=== PATIENT | male | born 1935 | race Caucasian/White ===

== ENCOUNTER 2019-11-22 11:53 | Outpatient (CLI) | payer OTHER, SELFPAY ==
[2019-11-22 12:44] LABS: Basophils # 0.1 10^3/uL (0.0-0.1); Basophils % 1.7 %; Eosinophils # 0.3 10^3/uL (0.0-0.8); Eosinophils % 8.4 %; Hematocrit 30.8 % (42.0-52.0); Hemoglobin 9.6 g/dL (11.7-16.6); Lymphocytes # 0.7 10^3/uL (0.8-4.8); Lymphocytes % 17.8 %; Mean Corpuscular HGB Conc 31.2 g/dL (30.0-36.0); Mean Corpuscular Hemoglobin 34.2 pg (28.0-34.0); Mean Corpuscular Volume 109.6 fL (80-94); Mean Platelet Volume 10.3 fL (7.4-10.4); Monocytes # 0.4 10^3/uL (0.2-0.9); Monocytes % 10.9 %; Neutrophils # 2.5 10^3/uL (1.8-7.7); Nucleated Red Blood Cells % 0 %; Platelet Count 204 10^3/cmm (130-400); Red Blood Count 2.81 10^6/uL (4.1-5.3); Red Cell Distribution Width 15.9 % (12.1-15.1); White Blood Count 4.1 10^3/uL (4.0-10.0)
[2019-11-22 12:57] LABS: Iron 39 ug/dL (59-158)
[2019-11-22 13:10] LABS: Percent Saturation 13.6 % (20-50); Total Iron Binding Capacity 285 mcg/dl; Unsaturated Iron Binding 246 ug/dL (112-347)
== END 2019-11-22 11:54 | disposition home or self-care (01) ==
LOC: ONCMED 12:00
PROVIDERS: Family Provider Emergency Medicine Emergency Medical Services; PCP Emergency Medicine Emergency Medical Services; Visit Provider Internal Medicine Hematology & Oncology
DX: D50.9 Iron deficiency anemia, unspecified (principal)
CPT/HCPCS: 83540; 83550; 85025; 86850; 86900; 96365

== ENCOUNTER 2019-11-29 10:00 | Outpatient (CLI) | payer OTHER, SELFPAY | END 2019-11-29 10:01 | disposition home or self-care (01) | PROVIDERS: Family Provider Emergency Medicine Emergency Medical Services; PCP Emergency Medicine Emergency Medical Services; Visit Provider Internal Medicine Hematology & Oncology | DX: D50.9 Iron deficiency anemia, unspecified (principal) | CPT/HCPCS: 96365 ==

== ENCOUNTER 2019-12-05 08:25 | Outpatient (CLI) | payer OTHER, SELFPAY ==
[2019-12-05 09:18] LABS: Add Urine Microscopic? NO
[2019-12-05 09:24] LABS: Basophils # 0.1 10^3/uL (0.0-0.1); Basophils % 1.2 %; Eosinophils # 0.3 10^3/uL (0.0-0.8); Eosinophils % 8.1 %; Hematocrit 30.5 % (42.0-52.0); Hemoglobin 9.5 g/dL (11.7-16.6); Lymphocytes # 0.6 10^3/uL (0.8-4.8); Lymphocytes % 13.1 %; Mean Corpuscular HGB Conc 31.1 g/dL (30.0-36.0); Mean Corpuscular Hemoglobin 35.3 pg (28.0-34.0); Mean Corpuscular Volume 113.4 fL (80-94); Mean Platelet Volume 10.6 fL (7.4-10.4); Monocytes # 0.4 10^3/uL (0.2-0.9); Neutrophils # 2.9 10^3/uL (1.8-7.7); Neutrophils % 68.4 %; Nucleated Red Blood Cells % 0 %; Platelet Count 181 10^3/cmm (130-400); Red Blood Count 2.69 10^6/uL (4.1-5.3); Red Cell Distribution Width 15.9 % (12.1-15.1); White Blood Count 4.2 10^3/uL (4.0-10.0)
[2019-12-05 09:28] LABS: Urine Appearance Clear (CLEAR); Urine Color Yellow (Yellow)
[2019-12-05 09:29] LABS: Bilirubin Urine Neg (NEGATIVE); Blood Urine Neg (Negative); Glucose Urine UA Norm (Normal); Ketones Urine Negative (Negative); Leukocyte Esterase Urine Negative (Negative); Nitrate Urine Negative (Negative); Protein Urine Neg (Negative); Urobilinogen Urine Norm (Negative)
[2019-12-05 09:42] LABS: Alanine Aminotransferase 16 U/L (0-41); Albumin Level 3.5 g/dL (3.5-5.2); Alkaline Phosphatase 80 IU/L (40-130); Anion Gap 13.8 (5-19); Aspartate Amino Transferase 43 U/L (0-40); Blood Urea Nitrogen 12 mg/dL (8-23); Calcium 8.7 mg/dL (8.5-10.5); Carbon Dioxide 22 mmol/L (22-29); Chloride 107 mmol/L (98-107); Globulin 3.4 g/dL (1.3-4.6); Glucose 109 mg/dL (65-115); Potassium 3.8 mmol/L (3.5-5.1); Sodium 139 mmol/L (136-145); Total Bilirubin 0.3 mg/dL (0.15-1.2); Total Protein 6.9 g/dL (6.6-8.7)
[2019-12-05] MEDS: sodium chloride 0.9% 250 ML 75 ML IV (11:05)
--- NOTE | 2019-12-05 11:45 | ONC FU_ITS ---
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 History of Present Illness: Mr Ivey is an 84 year-old man with hereditary hemorrhagic telangiectasia. He has associated iron deficiency anemia from chronic blood loss. He was initially seen here by Dr. Camacho on 01/20/2017. He had a history of chronic, iron dependent anemia, beginning 35 years earlier with the discovery of a bleeding ulcer. He had gone off of his iron 8 years earlier at the suggestion of his PCP, but he very quickly needed a blood transfusion 3 weeks later . He then continued on oral iron as well as oral B12 every day. He also reported a 40-year history of having frequent nosebleeds, almost daily. [facility] diagnosis of hereditary hemorrhagic telangiectasias. His recent hemoglobin with Dr. Orlando had been low at 9.1 g. His laboratory studies at that time included CBC showing hemoglobin 10.2 g, white blood cell count 5400 and platelet count 245,000. The red cell indices were normal. The uncorrected reticulocyte count was 3.6%. Haptoglobin was normal at 227 mg/dL with total bilirubin normal at 0.3 mg/dL and LDH normal at 153 U/L. His B12 and folate levels were both normal, as was the methylmalonic acid level. Ferritin was low at 19.2 ng/mL. He was given parenteral iron replacement with infusions of Injectafer on 02/02/2017 and on 02/09/2017. He tolerated it well. On his follow-up visit on 03/10/2017 his hemoglobin was basically unchanged at 10.3 g. Serum iron was still low at 33 mcg/dL with transferrin saturation 9.5%. Ferritin had come up to 84 ng/mL compared to 19 ng from milliliter on 01/20/2017. He was given additional infusions of Injectafer on 03/10/2017 and on 03/17/2017. His follow-up CBC on 04/14/2017 still showed mild anemia with hemoglobin 10.6 g. The serum iron studies still showed low transferrin saturation of 12%. The ferritin was up to 117 ng/mL. He failed to return for further follow-up. On 02/13/2018 he was admitted to the hospital after presenting to the emergency room with recurrent anemia, hemoglobin 7.4 g. He was transfused with 2 units of packed red blood cells. EGD showed multiple gastric AVMs which were treated with either clipping and/or cautery. He was then back in the emergency room on 02/23/2018 with hemoglobin 7.3 g, and he received another 2 units of packed red blood cells. I had seen him for a follow-up visit on 03/02/2018. His hemoglobin was still only 8.7 g with transferrin saturation low at 15.7% and ferritin low at 22 ng/mL. He was then given additional parenteral iron replacement with infusions of Injectafer on 03/13/2018 and 03/21/2018. Despite the iron infusions, as of his follow-up visit on 04/20/2018 his hemoglobin was back down to 7.5 g with transferrin saturation 15.9%. He was transfused 2 units of packed red blood cells and he was given additional infusions of Injectafer on 04/20/2018 and on 04/27/2018. As of 05/04/2018 his hemoglobin had further decline to 6.3 g with white blood cell count 4400 and platelet count 192,000. The red cell indices were macrocytic, MCV 113 and MCH 36. The uncorrected reticulocyte count was 14.4%. Haptoglobin was low at 27.1 mg/dL with LDH normal at 231 U/L. He was given a transfusion of 3 units of PRBC on 05/05/2018. He required further transfusions of 2 units of PRBC on 05/12/2018 and again on 05/23/2018. He underwent bone marrow aspiration/biopsy on 05/18/2018. The marrow was hypercellular, estimated at 80-90%. There was erythroid hyperplasia. There was limited megakaryocyte dyspoiesis and limited dyserythropoiesis. There was just scant storage iron. There was no evidence of an infiltrative process. Flow cytometry showed no aberrant myeloid or lymphoid populations, and a FISH panel for MDS was unrevealing. 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 The remainder showed normal chromosome complement. With those findings and with recurrent iron deficiency despite repeated infusions of parenteral iron, he was referred to [facility] for a second opinion evaluation. He was seen there in November 2018, and he subsequently began a trial of therapy with tranexamic acid. 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 Despite that, he required blood transfusions again on 01/18/2019, on 01/22/2019, on 02/05/2019, on 02/12/2019, and on 02/19/2019. 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 With that finding, we were able to get approval for a trial of therapy with a Avastin. He received his initial infusion of a Avastin at the 5 mg/kg dosage on 02/19/2019. He tolerated it well. As of 03/01/2019 his hemoglobin was adequate at 10.8 g. He continued with his second infusion of Avastin on 03/05/2019. The dosage was adjusted to a 3-week interval to allow for a planned vacation to [place]. His medical history is otherwise unremarkable. He reports no other medical illnesses. His most recent colonoscopy was in 2007. He is a nonsmoker. INTERIM HISTORY: Following his initial infusion of a Avastin, his hemoglobin had stabilized at 10 g. He continued with a second infusion on 03/05/2019, and thereafter he continued the a Avastin at 2-week intervals. During that time he experienced a gradual increase in his hemoglobin/hematocrit levels. As of 05/02/2019 he received his 5th infusion of a Avastin, and at that point his hemoglobin had increased to 12.4 g. He was seen for followup in July 2019. He had completed 9 infusions of a Avastin, the last 2 of which were administered at a 4-week interval. Hetolerated the treatment very well, and during that time he had not been aware of any active bleeding. He received cycle 10 on 08/22/2019. He feels pretty good generally. He says his energy is a little better. ECOG score is 1. He has good appetite. He has no fever or night sweats. He has some allergy related sinus symptoms, and he has a morning cough. He does not complain of shortness of breath or chest pain. He currently has no GI or complaints. He has some joint pain, mainly in the hands, and he also has some chronic back pain. He has just occasional headache. He has no focal neurologic symptoms. Remained off of the Avastin since August 22, 2019. He did have labs drawn in September which reported a hemoglobin of 12 which was starting to trend down from a hemoglobin of 13.5 on 09/17/2019. Repeat labs on November 22, 2019 reported hemoglobin of 9.6. His MCV was elevated his iron was found to be 39 TIBC was 285, iron saturation was 13.6 he did receive iron replacement with Injectafer for 2 doses starting on November 22, 2019 and completed on November 29, 2019. He tolerated those well. Mr. Ivey was advised to resume the Avastin as his hemoglobin had dropped. He he is here today for follow-up. He states overall he knows that his hemoglobin is low because he has been more draggy. He has not had any active bleeding that he is aware of. He states he does know when he is bleeding based on his stools and he is not seeing any abnormal stools at this point. He denies any other concerns. He denies any shortness of breath orthopnea. He has had no chest pain or palpitations. He denies any fever or chills within the last 72 hours. He states he is eating good. His energy is fair but somewhat down for him. He denies any rash or skin lesions. He has had no lower extremity edema. He states he is ready for the Avastin and is aware of side effects and just wants to pursue treatment. His ECOG is 1. Past Medical History: Mr. Ivey's medical history is unremarkable. Past Surgical History: Flu vaccine in 2019 - left deltoid Allergies: No Known Allergies. Medications: B-12 1 Tablet (of 500 mcg) Tablet, sublingual Sublingual daily Benadryl Allergy 1 Tablet (of 25 mg) Oral at bedtime PRN C 1000 1 Tablet (of 1000 mg) Oral daily Cetirizine HCl 1 (10 mg) Capsule Oral daily PRN Ferrous Sulfate 2 (325 (65 fe) mg) Tablet Oral daily Folic Acid 1 Tablet (of 1 mg) Oral daily Family History: Mr. Ivey's mother at age 94. Mr. Ivey's father is : anemia. Mr. Ivey has 3 brothers: 1 alive, 2 . Mr. Ivey's first brother's lung cancer. He has 1 sister who is : cancer unspecified. Social History: Mr. Ivey is and he is retired. Mr. Ivey has never smoked. He drinks occasionally. Mr. Ivey reports the following support systems: lives with spouse, significant other, family, or friends, lives in own house, supportive family/friends willing to assist with needs, and adequate transportation available for expected visits. His diet consists of regular meals. He indicates his activity level as: daily activities. Review Of Symptoms: Constitutional Denies fevers, chills, night sweats, excessive fatigue or weight loss. Allergic/Immunologic No reactions. Eyes Denies significant visual changes. No diplopia. No amaurosis. ENMT Denies changes in hearing, sore throat, mouth sores, difficulty or changes in swallowing ability, and/or sinus drainage. Endocrine No diabetes, thyroid disease or hormone replacement. Denies hot flashes or night sweats. Hematologic/Lymphatic Denies easy bruising or bleeding. The patient denies any tender or palpable lymph nodes. Respiratory Denies dyspnea on exertion, chest pain, cough or hemoptysis. Denies orthopnea. Cardiovascular Denies anginal chest pain, palpitations or orthopnea. Gastrointestinal Denies nausea, vomiting, diarrhea, GI bleeding, or constipation. Denies change in bowel habits and/or stool color, no heartburn or early satiety. Genitourinary (M) Denies hematuria, dysuria, increased frequency, urgency, hesitancy or incontinence. Musculoskeletal Denies joint pain, swelling or redness. No decreased range of motion. Integumentary Denies chronic rashes, inflammation, ulcerations or skin changes. Neurologic Denies headache, blurred vision, and no areas of focal weakness or numbness. Normal gait. No sensory problems. Psychiatric Denies insomnia, depression, juanita or mood swings. Vital Signs: Performed on Dec 05, 2019 10:35 Height - 70.00 in Weight - 174.0 lbs (HIGH) BSA - 1.97 sq.m BMI - 24.97 Temperature - 97.3 F (LOW) Pulse - 72 /min Respiration - 18 /min BP - 126/74 mm(hg) O2 Sat - 100 % Pain - 0 Fatigue - 4,1 - No physically strenuous activity, but ambulatory and able to carry out light or sedentary work (e.g. office work, light house work). (ECOG) Physical Examination: Constitutional Alert, oriented, no acute distress. Skin pink, warm and dry. Head Normocephalic; atraumatic. Eyes Conjunctivae and sclerae are clear and without icterus. Pupils are reactive and equal. ENMT No oral exudates, ulcers, masses, thrush or mucositis. Oropharynx clear. Tongue normal. Respiratory Lungs are clear to auscultation without rhonchi or wheezing. Cardiovascular Regular rate and rhythm of heart with systolic murmur but no clicks, gallops or rubs. Abdomen Non-tender, non-distended, no masses, ascites. Good bowel sounds noted in all quads. No guarding or rebound tenderness. No pulsatile masses. Back/Spine Non-tender to palpation. Extremities No visible deformities, no cyanosis, clubbing or edema. Musculoskeletal No tenderness or swelling, normal range of motion without obvious weakness. Integumentary No rashes or lesions. Neurologic No sensory or motor deficits, normal cerebellar function, normal gait. Psychiatric Alert and oriented times three. Coherent speech. Verbalizes understanding of our discussions today. Laboratory:Test performed on Dec 05, 2019 08:00 Sodium 139 mmol/L Potassium 3.8 mmol/L Chloride 107 mmol/L CO2 22 mmol/L Anion Gap 13.8 BUN 12 mg/dL Creatinine 0.8 mg/dL Cr Clearance (Est) 72.0600 mL/min Glucose 109 mg/dL Calcium 8.7 mg/dL Protein, Total 6.9 g/dL Albumin 3.5 g/dL Globulin 3.4 g/dL Bilirubin, Total 0.3 mg/dL ALT (SGPT) 16 U/L AST (SGOT) 43 U/L Alkaline Phosphatase 80 IU/L WBC 4.2 10 3/uL RBC 2.69 10 6/uL HGB 9.5 g/dL HCT 30.5 % MCV 113.4 fL MCH 35.3 pg MCHC 31.1 g/dL RDW 15.9 % Platelet Count 181 10 3/cmm MPV 10.6 fL Neutrophils 2.9 10 3/uL Lymphocytes 0.6 10 3/uL Monocytes 0.4 10 3/uL Eosinophils 0.3 10 3/uL Basophils 0.1 10 3/uL Neutrophil % 68.4 % Lymphocyte % 13.1 % Monocyte % 9.0 % Eosinophil % 8.1 % Basophils % 1.2 % Impression: 1. Patient with hereditary hemorrhagic telangiectasia. He has had iron deficiency anemia associated with chronic blood loss, which has included epistaxis and GI blood loss. 2. He has been followed here since December 2016. During subsequent follow-up he required parenteral iron replacement on multiple occasions, and he received multiple transfusions of PRBC. 3. He underwent EGD for acute GI bleeding on 02/15/2018. He was noted to have multiple AVMs in the gastric body. There were associated stigmata of bleeding, and he was treated with clipping and/or cautery. 4. His bone marrow aspiration/biopsy on 05/18/2018 showed no diagnostic findings. The marrow was hypercellular and there was erythroid hyperplasia, but there was just mild erythrocyte dyspoiesis and mild megakaryocyte dyspoiesis. There was just scant storage iron. The findings were felt to be consistent with either chronic blood loss or hemolysis, but with myelodysplasia not entirely excluded. 5. In November 2018 he was seen at [facility] for a second opinion evaluation. He began a trial therapy with tranexamic acid, but with no apparent benefit. 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 Despite that, he continued to require transfusion on a pretty much weekly basis. 6. 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 Based on that finding, he was approved for trial of therapy with a Avastin. He received his initial infusion at 5 mg/kg dosage on 02/19/2019. His baseline hemoglobin was 7.4 g, and at that time he also did receive a transfusion of PRBC. He received a second infusion of a Avastin on 03/05/2019, with the dosage adjusted or a 3-week interval. At that point his hemoglobin had stabilized at 10 g, and he then continued Avastin infusions at 2-week intervals with gradual increase in his hemoglobin/hematocrit levels. He has now completed 10 infusions of a Avastin, the last 2 of which were administered at a 4-week interval. His last infusion was August 22, 2019. His hemoglobin had remained stable until October 2019. It was found to be 9.6 and he was also found to be iron deficient. He did receive Injectafer for 2 doses. It was also elected to resume his Avastin given that his hemoglobin continued to drop. His hemoglobin today is 9.5. Plan: 1. Proceed with cycle 11 of Avastin. 2. We will plan to have him return in 2 weeks for repeat Avastin with a CBC, CMP and UA for Avastin monitoring. 3. Labs from today were reviewed in detail discussed with Mr. Ivey and a copy was given to him. White count is 4.2, hemoglobin 9.5, platelets 181,000 ANC is 2900. Creatinine 0.8 random glucose 109 LFTs reported an ALT of 16 AST is slightly elevated at 43 but this is stable for him. Alk phos is normal at 80 and total bilirubin 0.3. His iron studies were not repeated as he just completed his second dose of Injectafer last week. 4. We will try him on 2-week Avastin and see how he tolerates this and as his hemoglobin improves we may want to switch him to monthly and Avastin as was his regimen when he completed in July. Plan follow-up in 1 month at which time he also have CBC, CMP and Avastin. I have also asked for iron studies at that time to reevaluate his iron deficiency. 5. Mr. Ivey was advised to contact us in the interim should questions or problems arise. 6. He did mention that he is taking oral iron once daily. He was advised he can stop it as he has had IV replacement with Injectafer. Signed By: Hermila Melgar-, AOCNP Jalil Olmos MD <<Signature on File>>
== END 2019-12-05 08:26 | disposition home or self-care (01) ==
LOC: ONCMED 08:25
PROVIDERS: Family Provider Emergency Medicine Emergency Medical Services; PCP Emergency Medicine Emergency Medical Services; Visit Provider Nurse Practitioner
DX: I78.0 Hereditary hemorrhagic telangiectasia (principal); K92.2 Gastrointestinal hemorrhage, unspecified; D50.0 Iron deficiency anemia secondary to blood loss (chronic); G89.29 Other chronic pain; M54.9 Dorsalgia, unspecified; Z79.899 Other long term (current) drug therapy
CPT/HCPCS: 80053; 81003; 85025; 96413; 99214; J7050; J9035

== ENCOUNTER 2019-12-19 08:20 | Outpatient (CLI) | payer OTHER, SELFPAY ==
[2019-12-19 09:08] LABS: Add Urine Microscopic? NO
[2019-12-19 09:15] LABS: Bilirubin Urine Neg (NEGATIVE); Blood Urine Neg (Negative); Glucose Urine UA Norm (Normal); Ketones Urine Negative (Negative); Leukocyte Esterase Urine Negative (Negative); Nitrate Urine Negative (Negative); Protein Urine Neg (Negative); Specific Gravity, Urine 1.015 (1.005-1.030); Urine Appearance Clear (CLEAR); Urine Color Yellow (Yellow); Urobilinogen Urine Norm (Negative); pH Urine 5 (5-7)
[2019-12-19 09:16] LABS: Basophils # 0.1 10^3/uL (0.0-0.1); Basophils % 1.3 %; Eosinophils # 0.4 10^3/uL (0.0-0.8); Eosinophils % 10.2 %; Hematocrit 36.4 % (42.0-52.0); Hemoglobin 11.2 g/dL (11.7-16.6); Lymphocytes # 0.6 10^3/uL (0.8-4.8); Lymphocytes % 15.2 %; Mean Corpuscular HGB Conc 30.8 g/dL (30.0-36.0); Mean Corpuscular Hemoglobin 33.6 pg (28.0-34.0); Mean Corpuscular Volume 109.3 fL (80-94); Mean Platelet Volume 10.6 fL (7.4-10.4); Monocytes # 0.4 10^3/uL (0.2-0.9); Neutrophils # 2.4 10^3/uL (1.8-7.7); Neutrophils % 62.3 %; Nucleated Red Blood Cells % 0 %; Platelet Count 146 10^3/cmm (130-400); Red Blood Count 3.33 10^6/uL (4.1-5.3); Red Cell Distribution Width 13.9 % (12.1-15.1); White Blood Count 3.8 10^3/uL (4.0-10.0)
[2019-12-19 09:36] LABS: Alanine Aminotransferase 13 U/L (0-41); Albumin Level 3.4 g/dL (3.5-5.2); Alkaline Phosphatase 90 IU/L (40-130); Anion Gap 13.3 (5-19); Aspartate Amino Transferase 38 U/L (0-40); Blood Urea Nitrogen 9 mg/dL (8-23); Calcium 8.5 mg/dL (8.5-10.5); Carbon Dioxide 20 mmol/L (22-29); Chloride 109 mmol/L (98-107); Globulin 3.6 g/dL (1.3-4.6); Glucose 122 mg/dL (65-115); Potassium 4.3 mmol/L (3.5-5.1); Sodium 138 mmol/L (136-145); Total Bilirubin 0.2 mg/dL (0.15-1.2)
[2019-12-19] MEDS: sodium chloride 0.9% 250 ML 75 ML IV (10:46)
== END 2019-12-19 08:21 | disposition home or self-care (01) ==
LOC: ONCMED 08:21
PROVIDERS: Family Provider Emergency Medicine Emergency Medical Services; PCP Emergency Medicine Emergency Medical Services; Visit Provider Nurse Practitioner
DX: I78.0 Hereditary hemorrhagic telangiectasia (principal); K92.2 Gastrointestinal hemorrhage, unspecified; Z79.899 Other long term (current) drug therapy; D50.9 Iron deficiency anemia, unspecified
CPT/HCPCS: 80053; 81003; 85025; 96413; J7050; J9035

== ENCOUNTER 2020-01-02 08:56 | Outpatient (CLI) | payer OTHER, SELFPAY ==
[2020-01-02 09:27] LABS: Basophils % 0.2 %; Hematocrit 34.8 % (42.0-52.0); Hemoglobin 11.3 g/dL (11.7-16.6); Lymphocytes # 0.8 10^3/uL (0.8-4.8); Lymphocytes % 5.6 %; Mean Corpuscular HGB Conc 32.5 g/dL (30.0-36.0); Mean Corpuscular Volume 101.8 fL (80-94); Monocytes # 1.2 10^3/uL (0.2-0.9); Monocytes % 8.6 %; Neutrophils # 11.9 10^3/uL (1.8-7.7); Neutrophils % 84.4 %; Nucleated Red Blood Cells % 0 %; Platelet Count 113 10^3/cmm (130-400); Red Blood Count 3.42 10^6/uL (4.1-5.3); Red Cell Distribution Width 12.4 % (12.1-15.1); White Blood Count 14.1 10^3/uL (4.0-10.0)
[2020-01-02 09:33] LABS: Add Urine Microscopic? YES; Bilirubin Urine Neg (NEGATIVE); Blood Urine 3+ (Negative); Glucose Urine UA Norm (Normal); Ketones Urine Negative (Negative); Leukocyte Esterase Urine 1+ (Negative); Nitrate Urine Negative (Negative); Protein Urine 3+ (Negative); Urine Appearance Cloudy (CLEAR); Urine Color Yellow (Yellow); Urobilinogen Urine 1 mg/dL (Negative)
[2020-01-02 09:43] LABS: RBC Urine 50-80 /hpf (0-2); WBC Urine 25-40 /hpf (0-5)
[2020-01-02 09:44] LABS: Add Urine Culture? Yes; Bacteria Urine 2+; Mucus Urine 1+
[2020-01-02 09:50] LABS: Alanine Aminotransferase 24 U/L (0-41); Albumin Level 3.4 g/dL (3.5-5.2); Alkaline Phosphatase 91 IU/L (40-130); Aspartate Amino Transferase 57 U/L (0-40); Blood Urea Nitrogen 17 mg/dL (8-23); Carbon Dioxide 20 mmol/L (22-29); Chloride 102 mmol/L (98-107); Ferritin 194 ng/mL (30-400); Globulin 3.9 g/dL (1.3-4.6); Glucose 134 mg/dL (65-115); Iron 9 ug/dL (59-158); Osmolality Calculated 276 mOsm/kg (285-295); Percent Saturation 4.7 % (20-50); Sodium 134 mmol/L (136-145); Total Bilirubin 0.8 mg/dL (0.15-1.2); Total Iron Binding Capacity 190 mcg/dl; Total Protein 7.3 g/dL (6.6-8.7); Unsaturated Iron Binding 181 ug/dL (112-347)
[2020-01-02] MEDS: levofloxacin-dextrose 5 % 500 MG/100 ML PREMIX 100 MG IV (11:50)
[2020-01-02] MEDS: sodium chloride 0.9% 500 ML 999 ML IV (13:15)
--- NOTE | 2020-01-06 11:10 | ONC FU_ITS ---
Dr. 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 History of Present Illness: This is an 83 year-old man with hereditary hemorrhagic telangiectasia. He has associated iron deficiency anemia from chronic blood loss. He was initially seen here by Dr. Camacho on 01/20/2017. He had a history of chronic, iron dependent anemia, beginning 35 years earlier with the discovery of a bleeding ulcer. He had gone off of his iron 8 years earlier at the suggestion of his PCP, but he very quickly needed a blood transfusion 3 weeks later . He then continued on oral iron as well as oral B12 every day. He also reported a 40-year history of having frequent nosebleeds, almost daily. [facility] diagnosis of hereditary hemorrhagic telangiectasias. His recent hemoglobin with Dr. Orlando had been low at 9.1 g. His laboratory studies at that time included CBC showing hemoglobin 10.2 g, white blood cell count 5400 and platelet count 245,000. The red cell indices were normal. The uncorrected reticulocyte count was 3.6%. Haptoglobin was normal at 227 mg/dL with total bilirubin normal at 0.3 mg/dL and LDH normal at 153 U/L. His B12 and folate levels were both normal, as was the methylmalonic acid level. Ferritin was low at 19.2 ng/mL. He was given parenteral iron replacement with infusions of Injectafer on 02/02/2017 and on 02/09/2017. He tolerated it well. On his follow-up visit on 03/10/2017 his hemoglobin was basically unchanged at 10.3 g. Serum iron was still low at 33 mcg/dL with transferrin saturation 9.5%. Ferritin had come up to 84 ng/mL compared to 19 ng from milliliter on 01/20/2017. He was given additional infusions of Injectafer on 03/10/2017 and on 03/17/2017. His follow-up CBC on 04/14/2017 still showed mild anemia with hemoglobin 10.6 g. The serum iron studies still showed low transferrin saturation of 12%. The ferritin was up to 117 ng/mL. He failed to return for further follow-up. On 02/13/2018 he was admitted to the hospital after presenting to the emergency room with recurrent anemia, hemoglobin 7.4 g. He was transfused with 2 units of packed red blood cells. EGD showed multiple gastric AVMs which were treated with either clipping and/or cautery. He was then back in the emergency room on 02/23/2018 with hemoglobin 7.3 g, and he received another 2 units of packed red blood cells. I had seen him for a follow-up visit on 03/02/2018. His hemoglobin was still only 8.7 g with transferrin saturation low at 15.7% and ferritin low at 22 ng/mL. He was then given additional parenteral iron replacement with infusions of Injectafer on 03/13/2018 and 03/21/2018. Despite the iron infusions, as of his follow-up visit on 04/20/2018 his hemoglobin was back down to 7.5 g with transferrin saturation 15.9%. He was transfused 2 units of packed red blood cells and he was given additional infusions of Injectafer on 04/20/2018 and on 04/27/2018. As of 05/04/2018 his hemoglobin had further decline to 6.3 g with white blood cell count 4400 and platelet count 192,000. The red cell indices were macrocytic, MCV 113 and MCH 36. The uncorrected reticulocyte count was 14.4%. Haptoglobin was low at 27.1 mg/dL with LDH normal at 231 U/L. He was given a transfusion of 3 units of PRBC on 05/05/2018. He required further transfusions of 2 units of PRBC on 05/12/2018 and again on 05/23/2018. He underwent bone marrow aspiration/biopsy on 05/18/2018. The marrow was hypercellular, estimated at 80-90%. There was erythroid hyperplasia. There was limited megakaryocyte dyspoiesis and limited dyserythropoiesis. There was just scant storage iron. There was no evidence of an infiltrative process. Flow cytometry showed no aberrant myeloid or lymphoid populations, and a FISH panel for MDS was unrevealing. 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 The remainder showed normal chromosome complement. With those findings and with recurrent iron deficiency despite repeated infusions of parenteral iron, he was referred to [facility] for a second opinion evaluation. He was seen there in November 2018, and he subsequently began a trial of therapy with tranexamic acid. 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 Despite that, he required blood transfusions again on 01/18/2019, on 01/22/2019, on 02/05/2019, on 02/12/2019, and on 02/19/2019. 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 With that finding, we were able to get approval for a trial of therapy with a Avastin. He received his initial infusion of a Avastin at the 5 mg/kg dosage on 02/19/2019. He tolerated it well. As of 03/01/2019 his hemoglobin was adequate at 10.8 g. He continued with his second infusion of Avastin on 03/05/2019. The dosage was adjusted to a 3-week interval to allow for a planned vacation to [place]. His medical history is otherwise unremarkable. He reports no other medical illnesses. His most recent colonoscopy was in 2007. He is a nonsmoker. INTERIM HISTORY: Following his initial infusion of a Avastin, his hemoglobin had stabilized at 10 g. He continued with a second infusion on 03/05/2019, and thereafter he continued the a Avastin at 2-week intervals. During that time he experienced a gradual increase in his hemoglobin/hematocrit levels. As of 08/22/2019 he received his 10th infusion of a Avastin. His hemoglobin was stable at 13.2 g, and we opted to try stopping his treatment. As of his follow-up visit on 11/22/2019 his hemoglobin had decreased to 9.6 g. His transferrin saturation was low at 13.6%, consistent with recurrent iron deficiency. He was then given parenteral iron replacement with 2 infusions of Injectafer. As of 12/05/2019, hemoglobin remained stable at 9.5 g, and at that point he restarted Avastin at 5 mg/kg by IV infusion every 2 weeks. He is seen for a scheduled visit. He has been feeling better generally after restarting the Avastin. However, for the past couple of weeks he has had no energy and his appetite also has not been good. His activity has been limited. His ECOG score is 2. He was seen at the [place] [facility] yesterday, and he was started on amoxicillin for urinary tract infection. Today he has had a slight fever and his indicates he has been a little disoriented. He has had some chills. He is sometimes short of breath. He has had a little cough, but that he just attributes to allergies. He has had occasional nausea. His bowel function has been okay, and he has not been aware of any blood in the stool. He has been having frequent small volume voids. He has no significant joint or bone pain. He occasionally has headache. Recently has had some lightheadedness. He has no focal neurologic symptoms. Medications: B-12 1 Tablet (of 500 mcg) Tablet, sublingual Sublingual daily, Benadryl Allergy 1 Tablet (of 25 mg) Oral at bedtime PRN, C 1000 1 Tablet (of 1000 mg) Oral daily, Cetirizine HCl 1 (10 mg) Capsule Oral daily PRN, Ferrous Sulfate 2 (325 (65 fe) mg) Tablet Oral daily, Folic Acid 1 Tablet (of 1 mg) Oral daily Allergies: No Known Allergies. Review of Systems: Constitutional - His energy was good, but he started feeling bad for a few weeks and now his energy is very low. He is mainly sedimentary at home. His appetite is poor but his weight is stable. He has a slight fever. He has been having chills. No hot flashes or night sweats. ECOG score is 2, ENMT - He has chronic sinus congestion/drainage. No mouth sores. No sore throat or difficulty swallowing, Hematologic/Lymphatic - No abnormal bruising or bleeding, Respiratory - He has shortness of breath with activity. No cough. No pleuritic pain or hemoptysis, Cardiovascular - No angina pain. No palpitations, Gastrointestinal - He has some nausea. No vomiting. No heartburn or acid reflux. No diarrhea or constipation. No blood in the stool or black stools, Genitourinary (M) - No dysuria. He has hematuria. He has urinary frequency and urgency, but no incontinence. He was diagnosed with UTI yesterday placed on oral antibiotics, Musculoskeletal - No joint or bone pain, Integumentary - No skin complications, Neurologic - No headache or dizziness. No numbness/paresthesias or other focal neurologic symptoms. His states that he seems disoriented today, Psychiatric - No anxiety. He has a little depression. No insomnia. Vital Signs: Performed on Jan 02, 2020 10:29 Height - 70.00 in Weight - 177.8 lbs (HIGH) BSA - 1.99 sq.m BMI - 25.51 Temperature - 101.8 F (HIGH) Pulse - 64 /min Respiration - 18 /min BP - 150/57 mm(hg) (HIGH) O2 Sat - 96 % Pain - 0 Physical Examination: Constitutional - He appears somewhat weak generally, Eyes - Sclerae nonicteric. Conjunctivae clear, ENMT - There are no lesions noted in the oral cavity, Hematologic/Lymphatic - No cervical, clavicular, or axillary adenopathy, Respiratory - Lungs are clear with some decrease in air movement bilaterally, Cardiovascular - Heart rhythm is regular. There is a II/ systolic murmur. There is no gallop or rub noted, Abdomen - Soft. Liver and spleen are not enlarged. There is no abdominal mass or ascites noted and there is no inguinal adenopathy, Extremities - No edema, Neurologic - No focal neurologic deficits noted. Lab/Imaging: Test performed on Jan 02, 2020 09:05 Ferritin 194 ng/mL Iron 9 ug/dL Sodium 134 mmol/L Iron Binding Capacity (TIBC) 190 mcg/dl Potassium 4.0 mmol/L % Iron Saturation 4.7 % Chloride 102 mmol/L CO2 20 mmol/L UIBC 181 ug/dL Anion Gap 16.0 BUN 17 mg/dL Creatinine 1.1 mg/dL Cr Clearance (Est) 52.4100 mL/min Glucose 134 mg/dL Calcium 9.0 mg/dL Protein, Total 7.3 g/dL Albumin 3.4 g/dL Globulin 3.9 g/dL Bilirubin, Total 0.8 mg/dL ALT (SGPT) 24 U/L AST (SGOT) 57 U/L Alkaline Phosphatase 91 IU/L WBC 14.1 10 3/uL RBC 3.42 10 6/uL HGB 11.3 g/dL HCT 34.8 % MCV 101.8 fL MCH 33.0 pg MCHC 32.5 g/dL RDW 12.4 % Platelet Count 113 10 3/cmm MPV 11.0 fL Neutrophils 11.9 10 3/uL Lymphocytes 0.8 10 3/uL Monocytes 1.2 10 3/uL Eosinophils 0.0 10 3/uL Basophils 0.0 10 3/uL Neutrophil % 84.4 % Lymphocyte % 5.6 % Monocyte % 8.6 % Eosinophil % 0.0 % Basophils % 0.2 % Impression: 1. Patient with hereditary hemorrhagic telangiectasia. He has had iron deficiency anemia associated with chronic blood loss, which has included epistaxis and GI blood loss. 2. He has been followed here since December 2016. During subsequent follow-up he required parenteral iron replacement on multiple occasions, and he received multiple transfusions of PRBC. 3. He underwent EGD for acute GI bleeding on 02/15/2018. He was noted to have multiple AVMs in the gastric body. There were associated stigmata of bleeding, and he was treated with clipping and/or cautery. 4. His bone marrow aspiration/biopsy on 05/18/2018 showed no diagnostic findings. The marrow was hypercellular and there was erythroid hyperplasia, but there was just mild erythrocyte dyspoiesis and mild megakaryocyte dyspoiesis. There was just scant storage iron. The findings were felt to be consistent with either chronic blood loss or hemolysis, but with myelodysplasia not entirely excluded. 5. In November 2018 he was seen at [facility] for a second opinion evaluation. He began a trial therapy with tranexamic acid, but with no apparent benefit. 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 Despite that, he continued to require transfusion on a pretty much weekly basis. 6. 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 Based on that finding, he was approved for trial of therapy with a Avastin. He received his initial infusion at 5 mg/kg dosage on 02/19/2019. His baseline hemoglobin was 7.4 g, and at that time he also did receive a transfusion of PRBC. He received a second infusion of a Avastin on 03/05/2019, with the dosage adjusted or a 3-week interval. At that point his hemoglobin had stabilized at 10 g, and he then continued Avastin infusions at 2-week intervals with gradual increase in his hemoglobin/hematocrit levels. As of 08/22/2019 he had completed his 10th infusion of Avastin. His hemoglobin was stable at 13.2 g, and at that point we opted to try stopping his treatment. As of 11/22/2019 his hemoglobin had dropped back down to 9.6 g with transferrin saturation low at 13.6%, consistent with iron deficiency. He was given parenteral iron replacement with 2 infusions of Injectafer, which he did not show a significant response. As of 12/05/2019 he restarted treatment with Avastin 5 mg/kg by IV every 2 weeks. Since then there has been improvement in his hemoglobin/hematocrit levels, but as of yesterday he began treatment with amoxicillin for suspected urinary tract infection. Today still running low-grade fever and he has having some chills and disorientation. He is having frequent small voids, which could be indicative of overflow incontinence. Plan: He will continue treatment with Avastin at 5 mg/kg by IV infusion every 2 weeks. I will check a bladder scan today to make sure that he does not have urinary retention. He will then be given Levaquin 500 mg IV, and he will continue Levaquin 500 mg orally for an additional 7 days. He is advised to report to the emergency room if his symptoms worsen. He will be scheduled to return in 2 weeks. Signed By: Jalil Olmos M.D. <<Signature on File>>
== END 2020-01-02 08:57 | disposition home or self-care (01) ==
LOC: ONCMED 08:57
PROVIDERS: Nurse Practitioner; Family Provider Emergency Medicine Emergency Medical Services; PCP Emergency Medicine Emergency Medical Services; Visit Provider Internal Medicine Medical Oncology
DX: I78.0 Hereditary hemorrhagic telangiectasia (principal); D50.0 Iron deficiency anemia secondary to blood loss (chronic); N39.0 Urinary tract infection, site not specified
CPT/HCPCS: 80053; 81001; 82728; 83540; 83550; 85025; 87077; 87086; 87186; 96361; 96367; 96413; 99214; J1956; J7040; J9035

== ENCOUNTER 2020-01-09 08:28 | Outpatient (CLI) | payer OTHER, SELFPAY ==
[2020-01-09 09:26] LABS: Basophils % 0.9 %; Eosinophils # 0.3 10^3/uL (0.0-0.8); Eosinophils % 7.4 %; Hematocrit 37.9 % (42.0-52.0); Lymphocytes # 0.6 10^3/uL (0.8-4.8); Lymphocytes % 13.3 %; Mean Corpuscular HGB Conc 31.7 g/dL (30.0-36.0); Mean Corpuscular Hemoglobin 32.8 pg (28.0-34.0); Mean Corpuscular Volume 103.6 fL (80-94); Mean Platelet Volume 10.4 fL (7.4-10.4); Monocytes # 0.4 10^3/uL (0.2-0.9); Monocytes % 9.7 %; Neutrophils % 68.3 %; Nucleated Red Blood Cells % 0 %; Platelet Count 201 10^3/cmm (130-400); Red Blood Count 3.66 10^6/uL (4.1-5.3); Red Cell Distribution Width 12.1 % (12.1-15.1); White Blood Count 4.5 10^3/uL (4.0-10.0)
[2020-01-09] MEDS: sodium chloride 0.9% 100 ML 400 ML (10:45)
--- NOTE | 2020-01-09 12:56 | ONC FU_ITS ---
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 History of Present Illness: Mr Ivey is an 83 year-old man with hereditary hemorrhagic telangiectasia. He has associated iron deficiency anemia from chronic blood loss. He was initially seen here by Dr. Camacho on 01/20/2017. He had a history of chronic, iron dependent anemia, beginning 35 years earlier with the discovery of a bleeding ulcer. He had gone off of his iron 8 years earlier at the suggestion of his PCP, but he very quickly needed a blood transfusion 3 weeks later . He then continued on oral iron as well as oral B12 every day. He also reported a 40-year history of having frequent nosebleeds, almost daily. [facility] diagnosis of hereditary hemorrhagic telangiectasias. His recent hemoglobin with Dr. Orlando had been low at 9.1 g. His laboratory studies at that time included CBC showing hemoglobin 10.2 g, white blood cell count 5400 and platelet count 245,000. The red cell indices were normal. The uncorrected reticulocyte count was 3.6%. Haptoglobin was normal at 227 mg/dL with total bilirubin normal at 0.3 mg/dL and LDH normal at 153 U/L. His B12 and folate levels were both normal, as was the methylmalonic acid level. Ferritin was low at 19.2 ng/mL. He was given parenteral iron replacement with infusions of Injectafer on 02/02/2017 and on 02/09/2017. He tolerated it well. On his follow-up visit on 03/10/2017 his hemoglobin was basically unchanged at 10.3 g. Serum iron was still low at 33 mcg/dL with transferrin saturation 9.5%. Ferritin had come up to 84 ng/mL compared to 19 ng from milliliter on 01/20/2017. He was given additional infusions of Injectafer on 03/10/2017 and on 03/17/2017. His follow-up CBC on 04/14/2017 still showed mild anemia with hemoglobin 10.6 g. The serum iron studies still showed low transferrin saturation of 12%. The ferritin was up to 117 ng/mL. He failed to return for further follow-up. On 02/13/2018 he was admitted to the hospital after presenting to the emergency room with recurrent anemia, hemoglobin 7.4 g. He was transfused with 2 units of packed red blood cells. EGD showed multiple gastric AVMs which were treated with either clipping and/or cautery. He was then back in the emergency room on 02/23/2018 with hemoglobin 7.3 g, and he received another 2 units of packed red blood cells. Dr Olmos had seen him for a follow-up visit on 03/02/2018. His hemoglobin was still only 8.7 g with transferrin saturation low at 15.7% and ferritin low at 22 ng/mL. He was then given additional parenteral iron replacement with infusions of Injectafer on 03/13/2018 and 03/21/2018. Despite the iron infusions, as of his follow-up visit on 04/20/2018 his hemoglobin was back down to 7.5 g with transferrin saturation 15.9%. He was transfused 2 units of packed red blood cells and he was given additional infusions of Injectafer on 04/20/2018 and on 04/27/2018. As of 05/04/2018 his hemoglobin had further decline to 6.3 g with white blood cell count 4400 and platelet count 192,000. The red cell indices were macrocytic, MCV 113 and MCH 36. The uncorrected reticulocyte count was 14.4%. Haptoglobin was low at 27.1 mg/dL with LDH normal at 231 U/L. He was given a transfusion of 3 units of PRBC on 05/05/2018. He required further transfusions of 2 units of PRBC on 05/12/2018 and again on 05/23/2018. He underwent bone marrow aspiration/biopsy on 05/18/2018. The marrow was hypercellular, estimated at 80-90%. There was erythroid hyperplasia. There was limited megakaryocyte dyspoiesis and limited dyserythropoiesis. There was just scant storage iron. There was no evidence of an infiltrative process. Flow cytometry showed no aberrant myeloid or lymphoid populations, and a FISH panel for MDS was unrevealing. 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 The remainder showed normal chromosome complement. With those findings and with recurrent iron deficiency despite repeated infusions of parenteral iron, he was referred to [facility] for a second opinion evaluation. He was seen there in November 2018, and he subsequently began a trial of therapy with tranexamic acid. 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 Despite that, he required blood transfusions again on 01/18/2019, on 01/22/2019, on 02/05/2019, on 02/12/2019, and on 02/19/2019. 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 With that finding, we were able to get approval for a trial of therapy with a Avastin. He received his initial infusion of a Avastin at the 5 mg/kg dosage on 02/19/2019. He tolerated it well. As of 03/01/2019 his hemoglobin was adequate at 10.8 g. He continued with his second infusion of Avastin on 03/05/2019. The dosage was adjusted to a 3-week interval to allow for a planned vacation to [place]. His medical history is otherwise unremarkable. He reports no other medical illnesses. His most recent colonoscopy was in 2007. He is a nonsmoker. INTERIM HISTORY: Following his initial infusion of a Avastin, his hemoglobin had stabilized at 10 g. He continued with a second infusion on 03/05/2019, and thereafter he continued the a Avastin at 2-week intervals. During that time he experienced a gradual increase in his hemoglobin/hematocrit levels. As of 08/22/2019 he received his 10th infusion of a Avastin. His hemoglobin was stable at 13.2 g, and we opted to try stopping his treatment. As of his follow-up visit on 11/22/2019 his hemoglobin had decreased to 9.6 g. His transferrin saturation was low at 13.6%, consistent with recurrent iron deficiency. He was then given parenteral iron replacement with 2 infusions of Injectafer. As of 12/05/2019, hemoglobin remained stable at 9.5 g, and at that point he restarted Avastin at 5 mg/kg by IV infusion every 2 weeks. Mr. Ivey was seen on January 02, 2020 for regular follow-up he was due for Avastin at that time also. He presented with urinary frequency, low-grade fever and some confusion. He had been on amoxicillin for UTI and his antibiotic was changed to Levaquin. He is here today for 1 week follow-up. He is also scheduled to start 2 doses of Injectafer today as he was found to be iron deficient at his visit last week. Mr. Ivey states overall he feels much better. He is no longer having confusion or fever. His urine patterns are back to normal. He states that he feels good??? much better than last week . He has no new concerns today. He denies any new shortness of breath orthopnea. He has had no chest pain or palpitations. He denies any urinary concerns. He also denies any stool changes or any blood in the stool. His ECOG is 1. Past Medical History: Mr. Ivey's medical history is unremarkable. Past Surgical History: Flu vaccine in 2019 - left deltoid Allergies: No Known Allergies. Medications: B-12 1 Tablet (of 500 mcg) Tablet, sublingual Sublingual daily Benadryl Allergy 1 Tablet (of 25 mg) Oral at bedtime PRN C 1000 1 Tablet (of 1000 mg) Oral daily Cetirizine HCl 1 (10 mg) Capsule Oral daily PRN Ferrous Sulfate 2 (325 (65 fe) mg) Tablet Oral daily Folic Acid 1 Tablet (of 1 mg) Oral daily Levaquin 1 Tablet (of 500 mg) Oral daily for 5 days Family History: Mr. Ivey's mother at age 94. Mr. Ivey's father is : anemia. Mr. Ivey has 3 brothers: 1 alive, 2 . Mr. Ivey's first brother's lung cancer. He has 1 sister who is : cancer unspecified. Social History: Mr. Ivey is and he is retired. Mr. Ivey has never smoked. He drinks occasionally. Mr. Ivey reports the following support systems: lives with spouse, significant other, family, or friends, lives in own house, supportive family/friends willing to assist with needs, and adequate transportation available for expected visits. His diet consists of regular meals. He indicates his activity level as: daily activities. Review Of Symptoms: Constitutional Denies fevers, chills, night sweats, excessive fatigue or weight loss. Allergic/Immunologic No reactions. Eyes Denies significant visual changes. No diplopia. No amaurosis. ENMT Denies changes in hearing, sore throat, mouth sores, difficulty or changes in swallowing ability, and/or sinus drainage. Endocrine No diabetes, thyroid disease or hormone replacement. Denies hot flashes or night sweats. Hematologic/Lymphatic Denies easy bruising or bleeding. The patient denies any tender or palpable lymph nodes. Respiratory Denies dyspnea on exertion, chest pain, cough or hemoptysis. Denies orthopnea. Cardiovascular Denies anginal chest pain, palpitations or orthopnea. Gastrointestinal Denies nausea, vomiting, diarrhea, GI bleeding, or constipation. Denies change in bowel habits and/or stool color, no heartburn or early satiety. Genitourinary (M) Denies hematuria, dysuria, increased frequency, urgency, hesitancy or incontinence. UTI symptoms from last week resolved. Musculoskeletal Denies joint pain, swelling or redness. No decreased range of motion. Integumentary Denies chronic rashes, inflammation, ulcerations or skin changes. Neurologic Denies headache, blurred vision, and no areas of focal weakness or numbness. Normal gait. No sensory problems. Psychiatric Denies insomnia, depression, juanita or mood swings. Vital Signs: Performed on Jan 09, 2020 10:02 Height - 70.00 in Weight - 175.4 lbs (LOW) BSA - 1.97 sq.m BMI - 25.17 Temperature - 98.2 F (LOW) Pulse - 76 /min Respiration - 17 /min BP - 155/75 mm(hg) (HIGH) O2 Sat - 98 % Pain - 0,1 - No physically strenuous activity, but ambulatory and able to carry out light or sedentary work (e.g. office work, light house work). (ECOG) Physical Examination: Constitutional Alert, oriented, no acute distress. Skin pink, warm and dry. Head Normocephalic; atraumatic. Eyes Conjunctivae and sclerae are clear and without icterus. Pupils are reactive and equal. Respiratory Lungs are clear to auscultation without rhonchi or wheezing. Cardiovascular Regular rate and rhythm of heart with systolic murmur but no clicks, gallops or rubs. Abdomen Non-tender, non-distended, no masses, ascites. Good bowel sounds noted in all quads. No guarding or rebound tenderness. No pulsatile masses. Back/Spine Non-tender to palpation. Extremities No visible deformities, no cyanosis, clubbing or edema. Musculoskeletal No tenderness or swelling, normal range of motion without obvious weakness. Integumentary No rashes or lesions. Neurologic No sensory or motor deficits, normal cerebellar function, normal gait. Psychiatric Alert and oriented times three. Coherent speech. Verbalizes understanding of our discussions today. Laboratory:Test performed on Jan 09, 2020 08:40 WBC 4.5 10 3/uL RBC 3.66 10 6/uL HGB 12.0 g/dL HCT 37.9 % MCV 103.6 fL MCH 32.8 pg MCHC 31.7 g/dL RDW 12.1 % Platelet Count 201 10 3/cmm MPV 10.4 fL Neutrophils 3.0 10 3/uL Lymphocytes 0.6 10 3/uL Monocytes 0.4 10 3/uL Eosinophils 0.3 10 3/uL Basophils 0.0 10 3/uL Neutrophil % 68.3 % Lymphocyte % 13.3 % Monocyte % 9.7 % Eosinophil % 7.4 % Basophils % 0.9 % Test performed on Jan 02, 2020 09:05 Ferritin 194 ng/mL Iron 9 ug/dL Sodium 134 mmol/L Iron Binding Capacity (TIBC) 190 mcg/dl Potassium 4.0 mmol/L % Iron Saturation 4.7 % Chloride 102 mmol/L CO2 20 mmol/L UIBC 181 ug/dL Anion Gap 16.0 BUN 17 mg/dL Creatinine 1.1 mg/dL Cr Clearance (Est) 52.4100 mL/min Glucose 134 mg/dL Calcium 9.0 mg/dL Protein, Total 7.3 g/dL Albumin 3.4 g/dL Globulin 3.9 g/dL Bilirubin, Total 0.8 mg/dL ALT (SGPT) 24 U/L AST (SGOT) 57 U/L Alkaline Phosphatase 91 IU/L Impression: 1. Patient with hereditary hemorrhagic telangiectasia. He has had iron deficiency anemia associated with chronic blood loss, which has included epistaxis and GI blood loss. 2. He has been followed here since December 2016. During subsequent follow-up he required parenteral iron replacement on multiple occasions, and he received multiple transfusions of PRBC. 3. He underwent EGD for acute GI bleeding on 02/15/2018. He was noted to have multiple AVMs in the gastric body. There were associated stigmata of bleeding, and he was treated with clipping and/or cautery. 4. His bone marrow aspiration/biopsy on 05/18/2018 showed no diagnostic findings. The marrow was hypercellular and there was erythroid hyperplasia, but there was just mild erythrocyte dyspoiesis and mild megakaryocyte dyspoiesis. There was just scant storage iron. The findings were felt to be consistent with either chronic blood loss or hemolysis, but with myelodysplasia not entirely excluded. 5. In November 2018 he was seen at [facility] for a second opinion evaluation. He began a trial therapy with tranexamic acid, but with no apparent benefit. 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 Despite that, he continued to require transfusion on a pretty much weekly basis. 6. 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 Based on that finding, he was approved for trial of therapy with a Avastin. He received his initial infusion at 5 mg/kg dosage on 02/19/2019. His baseline hemoglobin was 7.4 g, and at that time he also did receive a transfusion of PRBC. He received a second infusion of a Avastin on 03/05/2019, with the dosage adjusted or a 3-week interval. At that point his hemoglobin had stabilized at 10 g, and he then continued Avastin infusions at 2-week intervals with gradual increase in his hemoglobin/hematocrit levels. As of 08/22/2019 he had completed his 10th infusion of Avastin. His hemoglobin was stable at 13.2 g, and at that point we opted to try stopping his treatment. As of 11/22/2019 his hemoglobin had dropped back down to 9.6 g with transferrin saturation low at 13.6%, consistent with iron deficiency. He was given parenteral iron replacement with 2 infusions of Injectafer, which he did not show a significant response. As of 12/05/2019 he restarted treatment with Avastin 5 mg/kg by IV every 2 weeks. Since then there has been improvement in his hemoglobin/hematocrit levels, but as of January 01, 2020, he began treatment with amoxicillin for suspected urinary tract infection. At his followup on the 01 of January, he was still running low-grade fever and he has having some chills and disorientation. He was having frequent small voids, which could be indicative of overflow incontinence. His antibiotic was changed to Levaquin 500 mg po daily x 7 days. Mr Ivey was found to be iron deficient once again on his labs from 01/02/2020. His iron saturation was 4.7%, Ferritin was 194 and iron level was 9. He will need IV iron replacement once again. Plan: 1. Proceed with 1/2 doses of Injectafer 750 mg IV. 2. Repeat in 1 week. 3. Labs from today were reviewed in detail and discussed with Mr Ivey and a copy was given to him. WBC 4.5 hemoglobin 12.0 hematocrit 37.9 platelets 201,000 ANC is 3000. 4. We will plan to have him return in 1 week at which time he will be due for Avastin and his second dose of Injectafer. Plan to have him return in 3 to 4 weeks for follow-up. We will coordinate this when he is due for his next dose of Avastin. He will need repeat CBC CMP and iron studies at that time. 5. He states that he just had Injectafer recently and is aware of the side effects. He has no questions or concerns at this time. 6. I will request that we do an IFOB on him. He denies any blood in the stools. Signed By: Hermila Melgar-, AOCNP Jalil Olmos MD <<Signature on File>>
== END 2020-01-09 08:29 | disposition home or self-care (01) ==
LOC: ONCMED 08:30
PROVIDERS: Family Provider Emergency Medicine Emergency Medical Services; PCP Emergency Medicine Emergency Medical Services; Visit Provider Nurse Practitioner
DX: I78.0 Hereditary hemorrhagic telangiectasia (principal); D50.0 Iron deficiency anemia secondary to blood loss (chronic); N39.0 Urinary tract infection, site not specified; Z79.899 Other long term (current) drug therapy
CPT/HCPCS: 85025; 96365; 99214; J1439

== ENCOUNTER 2020-01-16 06:00 | Outpatient (CLI) | payer OTHER, SELFPAY ==
[2020-01-16] MEDS: sodium chloride 0.9% 250 ML 75 ML IV (13:30)
== END 2020-01-16 06:01 | disposition home or self-care (01) ==
PROVIDERS: Family Provider Emergency Medicine Emergency Medical Services; PCP Emergency Medicine Emergency Medical Services; Visit Provider Internal Medicine Medical Oncology
DX: I78.0 Hereditary hemorrhagic telangiectasia (principal); D50.9 Iron deficiency anemia, unspecified; K92.2 Gastrointestinal hemorrhage, unspecified
CPT/HCPCS: 96367; 96413; J1439; J7050; J9035

== ENCOUNTER 2020-02-05 09:59 | Outpatient (CLI) | payer OTHER, SELFPAY ==
[2020-02-05 08:41] LABS: Basophils # 0.1 10^3/uL (0.0-0.1); Basophils % 1.6 %; Eosinophils # 0.8 10^3/uL (0.0-0.8); Eosinophils % 13.5 %; Hematocrit 43.6 % (42.0-52.0); Hemoglobin 14.3 g/dL (11.7-16.6); Lymphocytes # 0.9 10^3/uL (0.8-4.8); Lymphocytes % 15.6 %; Mean Corpuscular HGB Conc 32.8 g/dL (30.0-36.0); Mean Corpuscular Hemoglobin 32.7 pg (28.0-34.0); Mean Corpuscular Volume 99.8 fL (80-94); Mean Platelet Volume 11.6 fL (7.4-10.4); Monocytes # 0.6 10^3/uL (0.2-0.9); Monocytes % 11.3 %; Neutrophils # 3.3 10^3/uL (1.8-7.7); Neutrophils % 57.6 %; Nucleated Red Blood Cells % 0 %; Platelet Count 120 10^3/cmm (130-400); Red Blood Count 4.37 10^6/uL (4.1-5.3); Red Cell Distribution Width 13.7 % (12.1-15.1); White Blood Count 5.6 10^3/uL (4.0-10.0)
[2020-02-05 08:59] LABS: Iron 86 ug/dL (59-158)
[2020-02-05 10:34] LABS: Percent Saturation 43.6 % (20-50); Total Iron Binding Capacity 197 mcg/dl; Unsaturated Iron Binding 111 ug/dL (112-347)
[2020-02-05] MEDS: sodium chloride 0.9% 250 ML 75 ML IV (11:00)
--- NOTE | 2020-02-06 10:18 | ONC FU_ITS ---
Dr. 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 History of Present Illness: This is an 83 year-old man with hereditary hemorrhagic telangiectasia. He has associated iron deficiency anemia from chronic blood loss. He was initially seen here by Dr. Camacho on 01/20/2017. He had a history of chronic, iron dependent anemia, beginning 35 years earlier with the discovery of a bleeding ulcer. He had gone off of his iron 8 years earlier at the suggestion of his PCP, but he very quickly needed a blood transfusion 3 weeks later . He then continued on oral iron as well as oral B12 every day. He also reported a 40-year history of having frequent nosebleeds, almost daily. [facility] diagnosis of hereditary hemorrhagic telangiectasias. His recent hemoglobin with Dr. Orlando had been low at 9.1 g. His laboratory studies at that time included CBC showing hemoglobin 10.2 g, white blood cell count 5400 and platelet count 245,000. The red cell indices were normal. The uncorrected reticulocyte count was 3.6%. Haptoglobin was normal at 227 mg/dL with total bilirubin normal at 0.3 mg/dL and LDH normal at 153 U/L. His B12 and folate levels were both normal, as was the methylmalonic acid level. Ferritin was low at 19.2 ng/mL. He was given parenteral iron replacement with infusions of Injectafer on 02/02/2017 and on 02/09/2017. He tolerated it well. On his follow-up visit on 03/10/2017 his hemoglobin was basically unchanged at 10.3 g. Serum iron was still low at 33 mcg/dL with transferrin saturation 9.5%. Ferritin had come up to 84 ng/mL compared to 19 ng from milliliter on 01/20/2017. He was given additional infusions of Injectafer on 03/10/2017 and on 03/17/2017. His follow-up CBC on 04/14/2017 still showed mild anemia with hemoglobin 10.6 g. The serum iron studies still showed low transferrin saturation of 12%. The ferritin was up to 117 ng/mL. He failed to return for further follow-up. On 02/13/2018 he was admitted to the hospital after presenting to the emergency room with recurrent anemia, hemoglobin 7.4 g. He was transfused with 2 units of packed red blood cells. EGD showed multiple gastric AVMs which were treated with either clipping and/or cautery. He was then back in the emergency room on 02/23/2018 with hemoglobin 7.3 g, and he received another 2 units of packed red blood cells. I had seen him for a follow-up visit on 03/02/2018. His hemoglobin was still only 8.7 g with transferrin saturation low at 15.7% and ferritin low at 22 ng/mL. He was then given additional parenteral iron replacement with infusions of Injectafer on 03/13/2018 and 03/21/2018. Despite the iron infusions, as of his follow-up visit on 04/20/2018 his hemoglobin was back down to 7.5 g with transferrin saturation 15.9%. He was transfused 2 units of packed red blood cells and he was given additional infusions of Injectafer on 04/20/2018 and on 04/27/2018. As of 05/04/2018 his hemoglobin had further decline to 6.3 g with white blood cell count 4400 and platelet count 192,000. The red cell indices were macrocytic, MCV 113 and MCH 36. The uncorrected reticulocyte count was 14.4%. Haptoglobin was low at 27.1 mg/dL with LDH normal at 231 U/L. He was given a transfusion of 3 units of PRBC on 05/05/2018. He required further transfusions of 2 units of PRBC on 05/12/2018 and again on 05/23/2018. He underwent bone marrow aspiration/biopsy on 05/18/2018. The marrow was hypercellular, estimated at 80-90%. There was erythroid hyperplasia. There was limited megakaryocyte dyspoiesis and limited dyserythropoiesis. There was just scant storage iron. There was no evidence of an infiltrative process. Flow cytometry showed no aberrant myeloid or lymphoid populations, and a FISH panel for MDS was unrevealing. 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 The remainder showed normal chromosome complement. With those findings and with recurrent iron deficiency despite repeated infusions of parenteral iron, he was referred to [facility] for a second opinion evaluation. He was seen there in November 2018, and he subsequently began a trial of therapy with tranexamic acid. 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 Despite that, he required blood transfusions again on 01/18/2019, on 01/22/2019, on 02/05/2019, on 02/12/2019, and on 02/19/2019. 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 With that finding, we were able to get approval for a trial of therapy with a Avastin. He received his initial infusion of a Avastin at the 5 mg/kg dosage on 02/19/2019. He tolerated it well. As of 03/01/2019 his hemoglobin was adequate at 10.8 g. He continued with his second infusion of Avastin on 03/05/2019. The dosage was adjusted to a 3-week interval to allow for a planned vacation to [place]. His medical history is otherwise unremarkable. He reports no other medical illnesses. His most recent colonoscopy was in 2007. He is a nonsmoker. INTERIM HISTORY: Following his initial infusion of a Avastin, his hemoglobin had stabilized at 10 g. He continued with a second infusion on 03/05/2019, and thereafter he continued the a Avastin at 2-week intervals. During that time he experienced a gradual increase in his hemoglobin/hematocrit levels. As of 08/22/2019 he received his 10th infusion of a Avastin. His hemoglobin was stable at 13.2 g, and we opted to try stopping his treatment. As of his follow-up visit on 11/22/2019 his hemoglobin had decreased to 9.6 g. His transferrin saturation was low at 13.6%, consistent with recurrent iron deficiency. He was then given parenteral iron replacement with 2 infusions of Injectafer. As of 12/05/2019, hemoglobin remained stable at 9.5 g, and at that point he restarted Avastin at 5 mg/kg by IV infusion every 2 weeks. As of 01/02/2020 his hemoglobin had increased to 11.3 g. His transferrin saturation, though, was low again at 4.7%, and he was given further parenteral iron replacement with 2 additional infusions of Injectafer. He is seen for a scheduled visit. He has been feeling good generally. His energy is getting better. His ECOG score is 1. He has good appetite. He has no fever or night sweats. He has chronic sinus drainage. He has just occasional cough. He does not complain of shortness of breath or chest pain. He has no GI or complaints. 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 He has no focal neurologic symptoms. Medications: B-12 1 Tablet (of 500 mcg) Tablet, sublingual Sublingual daily, Benadryl Allergy 1 Tablet (of 25 mg) Oral at bedtime PRN, C 1000 1 Tablet (of 1000 mg) Oral daily, Cetirizine HCl 1 (10 mg) Capsule Oral daily PRN, Ferrous Sulfate 2 (325 (65 fe) mg) Tablet Oral daily, Folic Acid 1 Tablet (of 1 mg) Oral daily Allergies: No Known Allergies. Review of Systems: Constitutional - His energy level has improved. His appetite is good. His weight is down five pounds. No fever, chills, hot flashes, or night sweats. ECOG score is 1, ENMT - He has chronic sinus congestion/drainage. No mouth sores. No sore throat or difficulty swallowing, Hematologic/Lymphatic - He bruises easily, Respiratory - No shortness of breath. He has occasional cough. No pleuritic pain or hemoptysis, Cardiovascular - No angina pain. No palpitations, Gastrointestinal - No nausea or vomiting. No heartburn or acid reflux. No diarrhea or constipation. No blood in the stool or black stools, Genitourinary (M) - No dysuria or hematuria. No urinary frequency. No urgency or incontinence, Musculoskeletal - He has arthritis pain in his hands, Integumentary - No skin complications, Neurologic - No headache or dizziness. No numbness/paresthesias or other focal neurologic symptoms, Psychiatric - No anxiety or depression. No insomnia. Vital Signs: Performed on Feb 05, 2020 11:54 Height - 70.00 in Temperature - 98 F (LOW) Pulse - 52 /min (LOW) Respiration - 18 /min BP - 150/80 mm(hg) (HIGH) O2 Sat - 99 % Pain - 0 Fatigue - 0 Performed on Feb 05, 2020 10:10 Height - 70.00 in Weight - 170.6 lbs (LOW) BSA - 1.95 sq.m BMI - 24.48 Temperature - 97.9 F (LOW) Pulse - 71 /min Respiration - 20 /min BP - 158/93 mm(hg) (HIGH) O2 Sat - 99 % Pain - 0 Physical Examination: Constitutional - He looks pretty good generally, Eyes - Sclerae nonicteric. Conjunctivae clear, ENMT - There are no lesions noted in the oral cavity, Hematologic/Lymphatic - No cervical, clavicular, or axillary adenopathy, Respiratory - Lungs are clear with diminished air movement bilaterally, Cardiovascular - Heart rhythm is regular. There is a II/ systolic murmur. There is no gallop or rub noted, Abdomen - Soft. Liver and spleen are not enlarged. There is no abdominal mass or ascites noted and there is no inguinal adenopathy, Extremities - No edema, Neurologic - No focal neurologic deficits noted. Lab/Imaging: Test performed on Feb 05, 2020 08:15 Iron 86 mcg/dL Iron Binding Capacity (TIBC) 197 mcg/dl % Iron Saturation 43.6 % UIBC 111 mcg/dL WBC 5.6 10 3/uL RBC 4.37 10 6/uL HGB 14.3 g/dL HCT 43.6 % MCV 99.8 fL MCH 32.7 pg MCHC 32.8 g/dL RDW 13.7 % Platelet Count 120 10 3/cmm MPV 11.6 fL Neutrophils 3.3 10 3/uL Lymphocytes 0.9 10 3/uL Monocytes 0.6 10 3/uL Eosinophils 0.8 10 3/uL Basophils 0.1 10 3/uL Neutrophil % 57.6 % Lymphocyte % 15.6 % Monocyte % 11.3 % Eosinophil % 13.5 % Basophils % 1.6 % Impression: 1. Patient with hereditary hemorrhagic telangiectasia. He has had iron deficiency anemia associated with chronic blood loss, which has included epistaxis and GI blood loss. 2. He has been followed here since December 2016. During subsequent follow-up he required parenteral iron replacement on multiple occasions, and he received multiple transfusions of PRBC. 3. He underwent EGD for acute GI bleeding on 02/15/2018. He was noted to have multiple AVMs in the gastric body. There were associated stigmata of bleeding, and he was treated with clipping and/or cautery. 4. His bone marrow aspiration/biopsy on 05/18/2018 showed no diagnostic findings. The marrow was hypercellular and there was erythroid hyperplasia, but there was just mild erythrocyte dyspoiesis and mild megakaryocyte dyspoiesis. There was just scant storage iron. The findings were felt to be consistent with either chronic blood loss or hemolysis, but with myelodysplasia not entirely excluded. 5. In November 2018 he was seen at [facility] for a second opinion evaluation. He began a trial therapy with tranexamic acid, but with no apparent benefit. 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 Despite that, he continued to require transfusion on a pretty much weekly basis. 6. 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 Based on that finding, he was approved for trial of therapy with a Avastin. He received his initial infusion at 5 mg/kg dosage on 02/19/2019. His baseline hemoglobin was 7.4 g, and at that time he also did receive a transfusion of PRBC. He received a second infusion of a Avastin on 03/05/2019, with the dosage adjusted or a 3-week interval. At that point his hemoglobin had stabilized at 10 g, and he then continued Avastin infusions at 2-week intervals with gradual increase in his hemoglobin/hematocrit levels. As of 08/22/2019 he had completed his 10th infusion of Avastin. His hemoglobin was stable at 13.2 g, and at that point we opted to try stopping his treatment. As of 11/22/2019 his hemoglobin had dropped back down to 9.6 g with transferrin saturation low at 13.6%, consistent with iron deficiency. He was given parenteral iron replacement with 2 infusions of Injectafer, which he did not show a significant response. As of 12/05/2019 he restarted treatment with Avastin 5 mg/kg by IV every 2 weeks. As of 01/02/2020 his hemoglobin had increased to 11.2 g, but at that point he still had evidence of iron deficiency with transferrin saturation 4.7%. He was given 2 additional infusions of Injectafer, and he continued Avastin at the same dose and schedule. His hemoglobin is now up to normal range at 14.3 g. He has had significant symptomatic improvement with it. Plan: He will continue treatment with Avastin at 5 mg/kg by IV infusion every 2 weeks for the next month. If his hemoglobin remained stable, I will then try spacing out the Avastin infusions to every 4 weeks. I will tentatively plan a follow-up visit in 3 months. Signed By: Jalil Olmos M.D. <<Signature on File>>
== END 2020-02-05 10:00 | disposition home or self-care (01) ==
LOC: ONCMED 10:00
PROVIDERS: Family Provider Emergency Medicine Emergency Medical Services; PCP Emergency Medicine Emergency Medical Services; Visit Provider Internal Medicine Medical Oncology
DX: I78.0 Hereditary hemorrhagic telangiectasia (principal); D50.0 Iron deficiency anemia secondary to blood loss (chronic); Z79.899 Other long term (current) drug therapy
CPT/HCPCS: 83540; 83550; 85025; 96413; 99214; J7050; J9035

== ENCOUNTER 2020-02-19 12:11 | Outpatient (CLI) | payer OTHER, SELFPAY ==
[2020-02-19 12:52] LABS: Basophils # 0.1 10^3/uL (0.0-0.1); Basophils % 1.2 %; Eosinophils # 0.8 10^3/uL (0.0-0.8); Eosinophils % 12.9 %; Hematocrit 39.3 % (42.0-52.0); Lymphocytes # 1.1 10^3/uL (0.8-4.8); Lymphocytes % 18.3 %; Mean Corpuscular HGB Conc 33.1 g/dL (30.0-36.0); Mean Corpuscular Hemoglobin 32.2 pg (28.0-34.0); Mean Corpuscular Volume 97.3 fL (80-94); Monocytes # 0.6 10^3/uL (0.2-0.9); Monocytes % 9.5 %; Neutrophils # 3.5 10^3/uL (1.8-7.7); Neutrophils % 57.9 %; Nucleated Red Blood Cells % 0 %; Platelet Count 160 10^3/cmm (130-400); Red Blood Count 4.04 10^6/uL (4.1-5.3); Red Cell Distribution Width 13.9 % (12.1-15.1)
[2020-02-19] MEDS: sodium chloride 0.9% 250 ML 50 ML IV (14:15)
== END 2020-02-19 12:12 | disposition home or self-care (01) ==
LOC: ONCMED 12:11
PROVIDERS: Family Provider Emergency Medicine Emergency Medical Services; PCP Emergency Medicine Emergency Medical Services; Visit Provider Internal Medicine Medical Oncology
DX: Z51.11 Encounter for antineoplastic chemotherapy (principal); I78.0 Hereditary hemorrhagic telangiectasia; K92.2 Gastrointestinal hemorrhage, unspecified; D50.0 Iron deficiency anemia secondary to blood loss (chronic)
CPT/HCPCS: 85025; 96413; J7050

== ENCOUNTER 2020-03-04 12:24 | Outpatient (CLI) | payer OTHER, SELFPAY ==
[2020-03-04 13:05] LABS: Add Urine Microscopic? NO
[2020-03-04 13:10] LABS: Basophils # 0.1 10^3/uL (0.0-0.1); Basophils % 0.6 %; Eosinophils # 0.6 10^3/uL (0.0-0.8); Eosinophils % 7.6 %; Hematocrit 38.9 % (42.0-52.0); Hemoglobin 12.8 g/dL (11.7-16.6); Lymphocytes # 1.5 10^3/uL (0.8-4.8); Lymphocytes % 18.9 %; Mean Corpuscular HGB Conc 32.9 g/dL (30.0-36.0); Mean Corpuscular Hemoglobin 32.5 pg (28.0-34.0); Mean Corpuscular Volume 98.7 fL (80-94); Mean Platelet Volume 10.6 fL (7.4-10.4); Monocytes # 0.7 10^3/uL (0.2-0.9); Monocytes % 9.1 %; Neutrophils # 5.2 10^3/uL (1.8-7.7); Neutrophils % 63.7 %; Nucleated Red Blood Cells % 0 %; Platelet Count 202 10^3/cmm (130-400); Red Blood Count 3.94 10^6/uL (4.1-5.3); Red Cell Distribution Width 14.6 % (12.1-15.1); White Blood Count 8.2 10^3/uL (4.0-10.0)
[2020-03-04 13:21] LABS: Urine Color Yellow (Yellow)
[2020-03-04 13:22] LABS: Bilirubin Urine Neg (NEGATIVE); Blood Urine Neg (Negative); Glucose Urine UA Norm (Normal); Ketones Urine Negative (Negative); Leukocyte Esterase Urine Negative (Negative); Nitrate Urine Negative (Negative); Protein Urine Neg (Negative); Specific Gravity, Urine 1.015 (1.005-1.030); Urine Appearance Clear (CLEAR); Urobilinogen Urine 1 mg/dL (Negative); pH Urine 5 (5-7)
[2020-03-04 13:27] LABS: Ferritin 689 ng/mL (30-400); Iron 94 ug/dL (59-158); Percent Saturation 47.9 % (20-50); Total Iron Binding Capacity 196 mcg/dl; Unsaturated Iron Binding 102 ug/dL (112-347)
[2020-03-04] MEDS: sodium chloride 0.9% 250 ML 75 ML IV (13:55)
== END 2020-03-04 12:25 | disposition home or self-care (01) ==
LOC: ONCMED 12:26
PROVIDERS: PCP Emergency Medicine Emergency Medical Services; Visit Provider Internal Medicine Medical Oncology
DX: I78.0 Hereditary hemorrhagic telangiectasia (principal); K92.2 Gastrointestinal hemorrhage, unspecified; D50.0 Iron deficiency anemia secondary to blood loss (chronic); D64.9 Anemia, unspecified
CPT/HCPCS: 81003; 82728; 83540; 83550; 85025; 96413; J7050; J9035

== ENCOUNTER 2020-04-01 12:26 | Outpatient (CLI) | payer OTHER, SELFPAY ==
[2020-04-01 13:05] LABS: Add Urine Microscopic? NO
[2020-04-01 13:15] LABS: Basophils # 0.1 10^3/uL (0.0-0.1); Basophils % 1.3 %; Eosinophils # 0.7 10^3/uL (0.0-0.8); Eosinophils % 10.2 %; Hematocrit 36.1 % (42.0-52.0); Lymphocytes # 1.3 10^3/uL (0.8-4.8); Mean Corpuscular HGB Conc 33.2 g/dL (30.0-36.0); Mean Corpuscular Hemoglobin 34.2 pg (28.0-34.0); Mean Corpuscular Volume 102.8 fL (80-94); Mean Platelet Volume 10.3 fL (7.4-10.4); Monocytes # 0.6 10^3/uL (0.2-0.9); Monocytes % 8.9 %; Neutrophils # 4.2 10^3/uL (1.8-7.7); Neutrophils % 61.3 %; Nucleated Red Blood Cells % 0 %; Platelet Count 173 10^3/cmm (130-400); Red Blood Count 3.51 10^6/uL (4.1-5.3); Red Cell Distribution Width 15.5 % (12.1-15.1); White Blood Count 6.9 10^3/uL (4.0-10.0)
[2020-04-01 13:28] LABS: Bilirubin Urine Neg (NEGATIVE); Blood Urine Neg (Negative); Glucose Urine UA Norm (Normal); Ketones Urine Negative (Negative); Leukocyte Esterase Urine Negative (Negative); Nitrate Urine Negative (Negative); Protein Urine Neg (Negative); Urine Appearance Clear (CLEAR); Urine Color Yellow (Yellow); Urobilinogen Urine 1 mg/dL (Negative)
[2020-04-01 13:29] LABS: Ferritin 394 ng/mL (30-400); Iron 88 ug/dL (59-158); Percent Saturation 42.1 % (20-50); Total Iron Binding Capacity 209 mcg/dl; Unsaturated Iron Binding 121 ug/dL (112-347)
[2020-04-01] MEDS: sodium chloride 0.9% 250 ML 75 ML IV (14:05)
== END 2020-04-01 12:27 | disposition home or self-care (01) ==
LOC: ONCMED 12:29
PROVIDERS: PCP Emergency Medicine Emergency Medical Services; Visit Provider Internal Medicine Medical Oncology
DX: Z51.11 Encounter for antineoplastic chemotherapy (principal); I78.0 Hereditary hemorrhagic telangiectasia; K92.2 Gastrointestinal hemorrhage, unspecified; D50.0 Iron deficiency anemia secondary to blood loss (chronic); D64.9 Anemia, unspecified
CPT/HCPCS: 81003; 82728; 83540; 83550; 85025; 96413; J7050; J9035

== ENCOUNTER 2020-04-29 08:59 | Outpatient (CLI) | payer OTHER, SELFPAY ==
[2020-04-29 09:31] LABS: Add Urine Microscopic? NO
[2020-04-29 09:52] LABS: Basophils # 0.1 10^3/uL (0.0-0.1); Basophils % 1.5 %; Bilirubin Urine Neg (NEGATIVE); Blood Urine Neg (Negative); Eosinophils # 1.3 10^3/uL (0.0-0.8); Glucose Urine UA Norm (Normal); Hematocrit 35.8 % (42.0-52.0); Hemoglobin 11.7 g/dL (11.7-16.6); Ketones Urine Negative (Negative); Leukocyte Esterase Urine Negative (Negative); Lymphocytes # 0.9 10^3/uL (0.8-4.8); Mean Corpuscular HGB Conc 32.7 g/dL (30.0-36.0); Mean Corpuscular Volume 104.1 fL (80-94); Mean Platelet Volume 10.5 fL (7.4-10.4); Monocytes # 0.6 10^3/uL (0.2-0.9); Monocytes % 9.7 %; Neutrophils # 2.9 10^3/uL (1.8-7.7); Neutrophils % 50.3 %; Nitrate Urine Negative (Negative); Nucleated Red Blood Cells % 0 %; Platelet Count 176 10^3/cmm (130-400); Protein Urine Neg (Negative); Red Blood Count 3.44 10^6/uL (4.1-5.3); Red Cell Distribution Width 13.6 % (12.1-15.1); Urine Appearance Clear (CLEAR); Urine Color Straw (Yellow); Urobilinogen Urine Norm (Negative); White Blood Count 5.9 10^3/uL (4.0-10.0)
[2020-04-29 09:54] LABS: Alanine Aminotransferase 13 U/L (0-41); Albumin Level 3.5 g/dL (3.5-5.2); Alkaline Phosphatase 125 IU/L (40-130); Anion Gap 13.4 (5-19); Aspartate Amino Transferase 50 U/L (0-40); Blood Urea Nitrogen 11 mg/dL (8-23); Carbon Dioxide 21 mmol/L (22-29); Chloride 106 mmol/L (98-107); Ferritin 322 ng/mL (30-400); Globulin 3.3 g/dL (1.3-4.6); Glucose 99 mg/dL (65-115); Iron 79 ug/dL (59-158); Osmolality Calculated 278 mOsm/kg (285-295); Percent Saturation 44.1 % (20-50); Potassium 4.4 mmol/L (3.5-5.1); Sodium 136 mmol/L (136-145); Total Bilirubin 0.3 mg/dL (0.15-1.2); Total Iron Binding Capacity 179 mcg/dl; Total Protein 6.8 g/dL (6.6-8.7); Unsaturated Iron Binding 100 ug/dL (112-347)
[2020-04-29] MEDS: sodium chloride 0.9% 250 ML 75 ML IV (11:50)
--- NOTE | 2020-04-30 06:34 | ONC FU_ITS ---
Dr. 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 History of Present Illness: This is an 84 year-old man with hereditary hemorrhagic telangiectasia. He has associated iron deficiency anemia from chronic blood loss. He was initially seen here by Dr. Camacho on 01/20/2017. He had a history of chronic, iron dependent anemia, beginning 35 years earlier with the discovery of a bleeding ulcer. He had gone off of his iron 8 years earlier at the suggestion of his PCP, but he very quickly needed a blood transfusion 3 weeks later . He then continued on oral iron as well as oral B12 every day. He also reported a 40-year history of having frequent nosebleeds, almost daily. [facility] diagnosis of hereditary hemorrhagic telangiectasias. His recent hemoglobin with Dr. Orlando had been low at 9.1 g. His laboratory studies at that time included CBC showing hemoglobin 10.2 g, white blood cell count 5400 and platelet count 245,000. The red cell indices were normal. The uncorrected reticulocyte count was 3.6%. Haptoglobin was normal at 227 mg/dL with total bilirubin normal at 0.3 mg/dL and LDH normal at 153 U/L. His B12 and folate levels were both normal, as was the methylmalonic acid level. Ferritin was low at 19.2 ng/mL. He was given parenteral iron replacement with infusions of Injectafer on 02/02/2017 and on 02/09/2017. He tolerated it well. On his follow-up visit on 03/10/2017 his hemoglobin was basically unchanged at 10.3 g. Serum iron was still low at 33 mcg/dL with transferrin saturation 9.5%. Ferritin had come up to 84 ng/mL compared to 19 ng from milliliter on 01/20/2017. He was given additional infusions of Injectafer on 03/10/2017 and on 03/17/2017. His follow-up CBC on 04/14/2017 still showed mild anemia with hemoglobin 10.6 g. The serum iron studies still showed low transferrin saturation of 12%. The ferritin was up to 117 ng/mL. He failed to return for further follow-up. On 02/13/2018 he was admitted to the hospital after presenting to the emergency room with recurrent anemia, hemoglobin 7.4 g. He was transfused with 2 units of packed red blood cells. EGD showed multiple gastric AVMs which were treated with either clipping and/or cautery. He was then back in the emergency room on 02/23/2018 with hemoglobin 7.3 g, and he received another 2 units of packed red blood cells. I had seen him for a follow-up visit on 03/02/2018. His hemoglobin was still only 8.7 g with transferrin saturation low at 15.7% and ferritin low at 22 ng/mL. He was then given additional parenteral iron replacement with infusions of Injectafer on 03/13/2018 and 03/21/2018. Despite the iron infusions, as of his follow-up visit on 04/20/2018 his hemoglobin was back down to 7.5 g with transferrin saturation 15.9%. He was transfused 2 units of packed red blood cells and he was given additional infusions of Injectafer on 04/20/2018 and on 04/27/2018. As of 05/04/2018 his hemoglobin had further decline to 6.3 g with white blood cell count 4400 and platelet count 192,000. The red cell indices were macrocytic, MCV 113 and MCH 36. The uncorrected reticulocyte count was 14.4%. Haptoglobin was low at 27.1 mg/dL with LDH normal at 231 U/L. He was given a transfusion of 3 units of PRBC on 05/05/2018. He required further transfusions of 2 units of PRBC on 05/12/2018 and again on 05/23/2018. He underwent bone marrow aspiration/biopsy on 05/18/2018. The marrow was hypercellular, estimated at 80-90%. There was erythroid hyperplasia. There was limited megakaryocyte dyspoiesis and limited dyserythropoiesis. There was just scant storage iron. There was no evidence of an infiltrative process. Flow cytometry showed no aberrant myeloid or lymphoid populations, and a FISH panel for MDS was unrevealing. 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 The remainder showed normal chromosome complement. With those findings and with recurrent iron deficiency despite repeated infusions of parenteral iron, he was referred to [facility] for a second opinion evaluation. He was seen there in November 2018, and he subsequently began a trial of therapy with tranexamic acid. 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 Despite that, he required blood transfusions again on 01/18/2019, on 01/22/2019, on 02/05/2019, on 02/12/2019, and on 02/19/2019. 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 With that finding, we were able to get approval for a trial of therapy with a Avastin. He received his initial infusion of a Avastin at the 5 mg/kg dosage on 02/19/2019. He tolerated it well. As of 03/01/2019 his hemoglobin was adequate at 10.8 g. He continued with his second infusion of Avastin on 03/05/2019. The dosage was adjusted to a 3-week interval to allow for a planned vacation to [place]. His medical history is otherwise unremarkable. He reports no other medical illnesses. His most recent colonoscopy was in 2007. He is a nonsmoker. INTERIM HISTORY: Following his initial infusion of a Avastin, his hemoglobin had stabilized at 10 g. He continued with a second infusion on 03/05/2019, and thereafter he continued the a Avastin at 2-week intervals. During that time he experienced a gradual increase in his hemoglobin/hematocrit levels. As of 08/22/2019 he received his 10th infusion of a Avastin. His hemoglobin was stable at 13.2 g, and we opted to try stopping his treatment. As of his follow-up visit on 11/22/2019 his hemoglobin had decreased to 9.6 g. His transferrin saturation was low at 13.6%, consistent with recurrent iron deficiency. He was then given parenteral iron replacement with 2 infusions of Injectafer. As of 12/05/2019, hemoglobin remained stable at 9.5 g, and at that point he restarted Avastin at 5 mg/kg by IV infusion every 2 weeks. As of 01/02/2020 his hemoglobin had increased to 11.3 g. His transferrin saturation, though, was low again at 4.7%, and he was given further parenteral iron replacement with 2 additional infusions of Injectafer. He continued treatment with Avastin every 2 weeks. As of March 2020 the interval was increased to 4 weeks. He is seen for a scheduled visit. He has been feeling pretty good generally. He has been able to do outdoor work at home. His ECOG score is 1. His appetite is good. He has no fever or night sweats. He has cough early in the mornings. He has no shortness of breath, cough, or chest pain. He has occasional nausea and/or heartburn if he eats the wrong food. Bowel function has been OK. His stools are black due to his oral iron supplement. Bladder function remains adequate, though he sometimes has dribbling. 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 He has no focal neurologic symptoms. Medications: B-12 1 Tablet (of 500 mcg) Tablet, sublingual Sublingual daily, Benadryl Allergy 1 Tablet (of 25 mg) Oral at bedtime PRN, C 1000 1 Tablet (of 1000 mg) Oral daily, Cetirizine HCl 1 (10 mg) Capsule Oral daily PRN, Ferrous Sulfate 2 (325 (65 fe) mg) Tablet Oral daily, Folic Acid 1 Tablet (of 1 mg) Oral daily Allergies: No Known Allergies. Review of Systems: Constitutional - He has been feeling pretty good generally. He has been doing quite a bit of outside work. Appetite is good and weight is stable. No fever, night sweats, or hot flashes. ECOG score is 1, ENMT - He always has sinus drainage. No mouth sores. No sore throat or difficulty swallowing, Hematologic/Lymphatic - No abnormal bruising or bleeding, Respiratory - No shortness of breath. 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 No pleuritic pain or hemoptysis, Cardiovascular - No angina pain. No palpitations, Gastrointestinal - He occasionally has nausea and/pr heartburn, but mainly if he eats the wrong food. No diarrhea or constipation. No red blood in the stool. He has black stools with his iron pill, Genitourinary (M) - He sometimes has dribbing. No dysuria or hematuria. No urinary frequency. 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 No other joint or bone pain, Integumentary - , Neurologic - No headache or dizziness. No numbness or tingling. No other focal neurologic symptoms, Psychiatric - No anxiety or depression. No insomnia. Vital Signs: Performed on Apr 29, 2020 10:52 Height - 70.00 in Weight - 166.2 lbs (LOW) BSA - 1.93 sq.m BMI - 23.85 Temperature - 99.2 F (HIGH) Pulse - 68 /min Respiration - 18 /min BP - 126/60 mm(hg) O2 Sat - 98 % Pain - 0 Physical Examination: Constitutional - He looks good generally, Eyes - Sclerae nonicteric. Conjunctivae clear, ENMT - There are no lesions noted in the oral cavity, Hematologic/Lymphatic - No cervical, clavicular, or axillary adenopathy, Respiratory - Lungs are clear with diminished air movement bilaterally, Cardiovascular - Heart rhythm is regular. There is a II/ systolic murmur. There is no gallop or rub noted, Abdomen - Soft. Liver and spleen are not enlarged. There is no abdominal mass or ascites noted and there is no inguinal adenopathy, Extremities - No edema, Neurologic - No focal neurologic deficits noted. Lab/Imaging: Test performed on Apr 29, 2020 09:17 Ferritin 322 ng/mL Iron 79 mcg/dL Sodium 136 mmol/L Iron Binding Capacity (TIBC) 179 mcg/dl Potassium 4.4 mmol/L % Iron Saturation 44.1 % Chloride 106 mmol/L CO2 21 mmol/L UIBC 100 mcg/dL Anion Gap 13.4 BUN 11 mg/dL Creatinine 0.8 mg/dL Cr Clearance (Est) 72.0600 mL/min Glucose 99 mg/dL Calcium 9.0 mg/dL Protein, Total 6.8 g/dL Albumin 3.5 g/dL Globulin 3.3 g/dL Bilirubin, Total 0.3 mg/dL ALT (SGPT) 13 U/L AST (SGOT) 50 U/L Alkaline Phosphatase 125 IU/L WBC 5.9 10 3/uL RBC 3.44 10 6/uL HGB 11.7 g/dL HCT 35.8 % MCV 104.1 fL MCH 34.0 pg MCHC 32.7 g/dL RDW 13.6 % Platelet Count 176 10 3/cmm MPV 10.5 fL Neutrophils 2.9 10 3/uL Lymphocytes 0.9 10 3/uL Monocytes 0.6 10 3/uL Eosinophils 1.3 10 3/uL Basophils 0.1 10 3/uL Neutrophil % 50.3 % Lymphocyte % 16.0 % Monocyte % 9.7 % Eosinophil % 22.0 % Basophils % 1.5 % NRBC % 0 % Impression: 1. Patient with hereditary hemorrhagic telangiectasia. He has had iron deficiency anemia associated with chronic blood loss, which has included epistaxis and GI blood loss. 2. He has been followed here since December 2016. During subsequent follow-up he required parenteral iron replacement on multiple occasions, and he received multiple transfusions of PRBC. 3. He underwent EGD for acute GI bleeding on 02/15/2018. He was noted to have multiple AVMs in the gastric body. There were associated stigmata of bleeding, and he was treated with clipping and/or cautery. 4. His bone marrow aspiration/biopsy on 05/18/2018 showed no diagnostic findings. The marrow was hypercellular and there was erythroid hyperplasia, but there was just mild erythrocyte dyspoiesis and mild megakaryocyte dyspoiesis. There was just scant storage iron. The findings were felt to be consistent with either chronic blood loss or hemolysis, but with myelodysplasia not entirely excluded. 5. In November 2018 he was seen at [facility] for a second opinion evaluation. He began a trial therapy with tranexamic acid, but with no apparent benefit. 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 Despite that, he continued to require transfusion on a pretty much weekly basis. 6. 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 Based on that finding, he was approved for trial of therapy with a Avastin. He received his initial infusion at 5 mg/kg dosage on 02/19/2019. His baseline hemoglobin was 7.4 g, and at that time he also did receive a transfusion of PRBC. He received a second infusion of a Avastin on 03/05/2019, with the dosage adjusted or a 3-week interval. At that point his hemoglobin had stabilized at 10 g, and he then continued Avastin infusions at 2-week intervals with gradual increase in his hemoglobin/hematocrit levels. As of 08/22/2019 he had completed his 10th infusion of Avastin. His hemoglobin was stable at 13.2 g, and at that point we opted to try stopping his treatment. As of 11/22/2019 his hemoglobin had dropped back down to 9.6 g with transferrin saturation low at 13.6%, consistent with iron deficiency. He was given parenteral iron replacement with 2 infusions of Injectafer, which he did not show a significant response. As of 12/05/2019 he restarted treatment with Avastin 5 mg/kg by IV every 2 weeks. As of 01/02/2020 his hemoglobin had increased to 11.2 g, but at that point he still had evidence of iron deficiency with transferrin saturation 4.7%. He was given 2 additional infusions of Injectafer, and he continued Avastin at the same dose and schedule. As of March 2020 the interval of his Avastin infusions was increased to 4 weeks. Thus far his hemoglobin/hematocrit levels remain adequate and he appears stable clinically. Plan: He will continue treatment with Avastin at 5 mg/kg by IV infusion every 4 weeks for the next month. He will be scheduled for a followup visit in 3 months. Signed By: Jalil Olmos M.D. <<Signature on File>>
== END 2020-04-29 09:00 | disposition home or self-care (01) ==
LOC: ONCMED 09:02
PROVIDERS: PCP Emergency Medicine Emergency Medical Services; Visit Provider Internal Medicine Medical Oncology
DX: Z51.11 Encounter for antineoplastic chemotherapy (principal); I78.0 Hereditary hemorrhagic telangiectasia; K92.2 Gastrointestinal hemorrhage, unspecified; D50.0 Iron deficiency anemia secondary to blood loss (chronic); D64.9 Anemia, unspecified
CPT/HCPCS: 80053; 81003; 82728; 83540; 83550; 85025; 96413; 99214; J7050; J9035

== ENCOUNTER 2020-05-27 08:08 | Outpatient (CLI) | payer OTHER, SELFPAY ==
[2020-05-27 08:42] LABS: Basophils # 0.1 10^3/uL (0.0-0.1); Basophils % 1.3 %; Hematocrit 38.1 % (42.0-52.0); Hemoglobin 12.3 g/dL (11.7-16.6); Lymphocytes # 0.9 10^3/uL (0.8-4.8); Lymphocytes % 16.2 %; Mean Corpuscular HGB Conc 32.3 g/dL (30.0-36.0); Mean Corpuscular Hemoglobin 32.8 pg (28.0-34.0); Mean Corpuscular Volume 101.6 fL (80-94); Mean Platelet Volume 11.1 fL (7.4-10.4); Monocytes # 0.6 10^3/uL (0.2-0.9); Neutrophils # 2.99 10^3/uL (1.8-7.7); Neutrophils % 54.1 %; Nucleated Red Blood Cells % 0 %; Platelet Count 155 10^3/cmm (130-400); Red Blood Count 3.75 10^6/uL (4.1-5.3); Red Cell Distribution Width 12.5 % (12.1-15.1); White Blood Count 5.5 10^3/uL (4.0-10.0)
[2020-05-27 09:23] LABS: Slide Review Slide Review Perform
[2020-05-27] MEDS: sodium chloride 0.9% 250 ML 75 ML IV (10:57)
== END 2020-05-27 08:09 | disposition home or self-care (01) ==
LOC: ONCMED 08:09
PROVIDERS: PCP Emergency Medicine Emergency Medical Services; Visit Provider Internal Medicine Medical Oncology
DX: I78.0 Hereditary hemorrhagic telangiectasia (principal)
CPT/HCPCS: 85025; 96413; J7050; J9035

== ENCOUNTER 2020-06-24 05:56 | Outpatient (CLI) | payer OTHER, SELFPAY ==
[2020-06-24 12:41] LABS: Basophils # 0.1 10^3/uL (0.0-0.1); Basophils % 0.8 %; Eosinophils % 16.5 %; Hematocrit 38.1 % (42.0-52.0); Hemoglobin 12.5 g/dL (11.7-16.6); Lymphocytes # 1.2 10^3/uL (0.8-4.8); Lymphocytes % 18.3 %; Mean Corpuscular HGB Conc 32.8 g/dL (30.0-36.0); Mean Corpuscular Volume 100.5 fL (80-94); Mean Platelet Volume 11.2 fL (7.4-10.4); Monocytes # 0.6 10^3/uL (0.2-0.9); Monocytes % 9.8 %; Neutrophils # 3.42 10^3/uL (1.8-7.7); Neutrophils % 54.3 %; Nucleated Red Blood Cells % 0 %; Platelet Count 160 10^3/cmm (130-400); Red Blood Count 3.79 10^6/uL (4.1-5.3); Red Cell Distribution Width 12.8 % (12.1-15.1); White Blood Count 6.3 10^3/uL (4.0-10.0)
[2020-06-24 13:17] LABS: Alanine Aminotransferase 15 U/L (0-41); Albumin Level 3.9 g/dL (3.5-5.2); Alkaline Phosphatase 98 IU/L (40-130); Aspartate Amino Transferase 44 U/L (0-40); Blood Urea Nitrogen 14 mg/dL (8-23); Calcium 8.8 mg/dL (8.5-10.5); Carbon Dioxide 20 mmol/L (22-29); Chloride 108 mmol/L (98-107); Ferritin 275 ng/mL (30-400); Globulin 3.3 g/dL (1.3-4.6); Glucose 73 mg/dL (65-115); Iron 98 ug/dL (59-158); Osmolality Calculated 285 mOsm/kg (285-295); Percent Saturation 48.2 % (20-50); Sodium 140 mmol/L (136-145); Total Bilirubin 0.5 mg/dL (0.15-1.2); Total Iron Binding Capacity 203 mcg/dl; Total Protein 7.2 g/dL (6.6-8.7); Unsaturated Iron Binding 105 ug/dL (112-347)
[2020-06-24 13:27] LABS: Add Urine Microscopic? NO
[2020-06-24 13:33] LABS: Anion Gap 16.3 (5-19)
[2020-06-24 13:34] LABS: Potassium 4.3 mmol/L (3.5-5.1)
[2020-06-24 13:44] LABS: Urine Appearance Clear (CLEAR); Urine Color Yellow (Yellow)
[2020-06-24] MEDS: sodium chloride 0.9% 250 ML 75 ML IV (13:45)
--- NOTE | 2020-06-24 13:45 | ONC FU_ITS ---
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 History of Present Illness: Mr Ivey is an 84 year-old man with hereditary hemorrhagic telangiectasia. He has associated iron deficiency anemia from chronic blood loss. He was initially seen here by Dr. Camacho on 01/20/2017. He had a history of chronic, iron dependent anemia, beginning 35 years earlier with the discovery of a bleeding ulcer. He had gone off of his iron 8 years earlier at the suggestion of his PCP, but he very quickly needed a blood transfusion 3 weeks later . He then continued on oral iron as well as oral B12 every day. He also reported a 40-year history of having frequent nosebleeds, almost daily. [facility] diagnosis of hereditary hemorrhagic telangiectasias. His recent hemoglobin with Dr. Orlando had been low at 9.1 g. His laboratory studies at that time included CBC showing hemoglobin 10.2 g, white blood cell count 5400 and platelet count 245,000. The red cell indices were normal. The uncorrected reticulocyte count was 3.6%. Haptoglobin was normal at 227 mg/dL with total bilirubin normal at 0.3 mg/dL and LDH normal at 153 U/L. His B12 and folate levels were both normal, as was the methylmalonic acid level. Ferritin was low at 19.2 ng/mL. He was given parenteral iron replacement with infusions of Injectafer on 02/02/2017 and on 02/09/2017. He tolerated it well. On his follow-up visit on 03/10/2017 his hemoglobin was basically unchanged at 10.3 g. Serum iron was still low at 33 mcg/dL with transferrin saturation 9.5%. Ferritin had come up to 84 ng/mL compared to 19 ng from milliliter on 01/20/2017. He was given additional infusions of Injectafer on 03/10/2017 and on 03/17/2017. His follow-up CBC on 04/14/2017 still showed mild anemia with hemoglobin 10.6 g. The serum iron studies still showed low transferrin saturation of 12%. The ferritin was up to 117 ng/mL. He failed to return for further follow-up. On 02/13/2018 he was admitted to the hospital after presenting to the emergency room with recurrent anemia, hemoglobin 7.4 g. He was transfused with 2 units of packed red blood cells. EGD showed multiple gastric AVMs which were treated with either clipping and/or cautery. He was then back in the emergency room on 02/23/2018 with hemoglobin 7.3 g, and he received another 2 units of packed red blood cells. Dr Olmos had seen him for a follow-up visit on 03/02/2018. His hemoglobin was still only 8.7 g with transferrin saturation low at 15.7% and ferritin low at 22 ng/mL. He was then given additional parenteral iron replacement with infusions of Injectafer on 03/13/2018 and 03/21/2018. Despite the iron infusions, as of his follow-up visit on 04/20/2018 his hemoglobin was back down to 7.5 g with transferrin saturation 15.9%. He was transfused 2 units of packed red blood cells and he was given additional infusions of Injectafer on 04/20/2018 and on 04/27/2018. As of 05/04/2018 his hemoglobin had further decline to 6.3 g with white blood cell count 4400 and platelet count 192,000. The red cell indices were macrocytic, MCV 113 and MCH 36. The uncorrected reticulocyte count was 14.4%. Haptoglobin was low at 27.1 mg/dL with LDH normal at 231 U/L. He was given a transfusion of 3 units of PRBC on 05/05/2018. He required further transfusions of 2 units of PRBC on 05/12/2018 and again on 05/23/2018. He underwent bone marrow aspiration/biopsy on 05/18/2018. The marrow was hypercellular, estimated at 80-90%. There was erythroid hyperplasia. There was limited megakaryocyte dyspoiesis and limited dyserythropoiesis. There was just scant storage iron. There was no evidence of an infiltrative process. Flow cytometry showed no aberrant myeloid or lymphoid populations, and a FISH panel for MDS was unrevealing. 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 The remainder showed normal chromosome complement. With those findings and with recurrent iron deficiency despite repeated infusions of parenteral iron, he was referred to [facility] for a second opinion evaluation. He was seen there in November 2018, and he subsequently began a trial of therapy with tranexamic acid. 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 Despite that, he required blood transfusions again on 01/18/2019, on 01/22/2019, on 02/05/2019, on 02/12/2019, and on 02/19/2019. 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 With that finding, we were able to get approval for a trial of therapy with a Avastin. He received his initial infusion of a Avastin at the 5 mg/kg dosage on 02/19/2019. He tolerated it well. As of 03/01/2019 his hemoglobin was adequate at 10.8 g. He continued with his second infusion of Avastin on 03/05/2019. The dosage was adjusted to a 3-week interval to allow for a planned vacation to [place]. His medical history is otherwise unremarkable. He reports no other medical illnesses. His most recent colonoscopy was in 2007. He is a nonsmoker. INTERIM HISTORY: Following his initial infusion of a Avastin, his hemoglobin had stabilized at 10 g. He continued with a second infusion on 03/05/2019, and thereafter he continued the a Avastin at 2-week intervals. During that time he experienced a gradual increase in his hemoglobin/hematocrit levels. As of 08/22/2019 he received his 10th infusion of a Avastin. His hemoglobin was stable at 13.2 g, and we opted to try stopping his treatment. As of his follow-up visit on 11/22/2019 his hemoglobin had decreased to 9.6 g. His transferrin saturation was low at 13.6%, consistent with recurrent iron deficiency. He was then given parenteral iron replacement with 2 infusions of Injectafer. As of 12/05/2019, hemoglobin remained stable at 9.5 g, and at that point he restarted Avastin at 5 mg/kg by IV infusion every 2 weeks. As of 01/02/2020 his hemoglobin had increased to 11.3 g. His transferrin saturation, though, was low again at 4.7%, and he was given further parenteral iron replacement with 2 additional infusions of Injectafer. He continued treatment with Avastin every 2 weeks. As of March 2020 the interval was increased to 4 weeks. Mr Ivey is here today for followup. He states overall he is feeling well. He remains very active as he has been mowing his yard, and weed eating, fixing things, working around the house. He does not sit still for very long according to his . He states he has no pain. He has had no nausea or vomiting. He denies any headaches or vision changes. He has had no chest pain or palpitations. He states his breathing is good. He denies any diarrhea or constipation. He has had no lower extremity edema or orthopnea. He is very jovial. He is slightly hard of hearing but communicates well. His ECOG is 0. Past Medical History: Mr. Ivey's medical history is unremarkable. Past Surgical History: Flu vaccine in 2019 - left deltoid Allergies: No Known Allergies. Medications: B-12 1 Tablet (of 500 mcg) Tablet, sublingual Sublingual daily Benadryl Allergy 1 Tablet (of 25 mg) Oral at bedtime PRN C 1000 1 Tablet (of 1000 mg) Oral daily Cetirizine HCl 1 (10 mg) Capsule Oral daily PRN Ferrous Sulfate 2 (325 (65 fe) mg) Tablet Oral daily Family History: Mr. Ivey's mother at age 94. Mr. Ivey's father is : anemia. Mr. Ivey has 3 brothers: 1 alive, 2 . Mr. Ivey's first brother's lung cancer. He has 1 sister who is : cancer unspecified. Social History: Mr. Ivey is and he is retired. Mr. Ivey has never smoked. He drinks occasionally. Mr. Ivey reports the following support systems: lives with spouse, significant other, family, or friends, lives in own house, supportive family/friends willing to assist with needs, and adequate transportation available for expected visits. His diet consists of regular meals. He indicates his activity level as: daily activities. Review Of Symptoms: Constitutional Denies fevers, chills, night sweats, excessive fatigue or weight loss. Allergic/Immunologic No reactions. Eyes Denies significant visual changes. No diplopia. No amaurosis. ENMT Denies changes in hearing, sore throat, mouth sores, difficulty or changes in swallowing ability, and/or sinus drainage. Hematologic/Lymphatic Denies easy bruising or bleeding. The patient denies any tender or palpable lymph nodes. Respiratory Denies dyspnea on exertion, chest pain, cough or hemoptysis. Denies orthopnea. Cardiovascular Denies anginal chest pain, palpitations or orthopnea. Gastrointestinal Denies nausea, vomiting, diarrhea, GI bleeding, or constipation. Denies change in bowel habits and/or stool color, no heartburn or early satiety. Genitourinary (M) Denies hematuria, dysuria, increased frequency, urgency, hesitancy or incontinence. Musculoskeletal Denies joint pain, swelling or redness. No decreased range of motion. Integumentary Denies chronic rashes, inflammation, ulcerations or skin changes. Neurologic Denies headache, blurred vision, and no areas of focal weakness or numbness. Normal gait. No sensory problems. Psychiatric Denies insomnia, depression, juanita or mood swings. Vital Signs: Performed on Jun 24, 2020 12:57 Height - 70.00 in Weight - 159.8 lbs (LOW) BSA - 1.90 sq.m BMI - 22.93 Temperature - 97.8 F (LOW) Pulse - 57 /min (LOW) Respiration - 18 /min BP - 141/60 mm(hg) (HIGH) O2 Sat - 100 % Pain - 0,0 - Fully active, able to carry on all predisease activities without restrictions. (ECOG) Physical Examination: Constitutional Alert, oriented, no acute distress. Skin pink, warm and dry. Head Normocephalic; atraumatic. Eyes Conjunctivae and sclerae are clear and without icterus. Pupils are reactive and equal. Respiratory Lungs are clear to auscultation without rhonchi or wheezing. Cardiovascular Regular rate and rhythm of heart with systolic murmur but no clicks, gallops or rubs. Abdomen Non-tender, non-distended, no masses, ascites. Back/Spine Non-tender to palpation. Extremities No visible deformities, no cyanosis, clubbing or edema. Musculoskeletal No tenderness or swelling, normal range of motion without obvious weakness. Integumentary No rashes or lesions. Neurologic No sensory or motor deficits, normal cerebellar function, normal gait. Psychiatric Alert and oriented times three. Coherent speech. Verbalizes understanding of our discussions today. Laboratory:Test performed on Jun 24, 2020 11:55 Ferritin 275 ng/mL Folate, Serum 16.0 ng/mL Iron 98 mcg/dL Sodium 140 mmol/L Iron Binding Capacity (TIBC) 203 mcg/dl % Iron Saturation 48.2 % BUN 14 mg/dL Creatinine 0.7 mg/dL Cr Clearance (Est) 82.3500 mL/min Glucose 73 mg/dL Calcium 8.8 mg/dL Protein, Total 7.2 g/dL Albumin 3.9 g/dL Globulin 3.3 g/dL Bilirubin, Total 0.5 mg/dL ALT (SGPT) 15 U/L Alkaline Phosphatase 98 IU/L WBC 6.3 10 3/uL RBC 3.79 10 6/uL HGB 12.5 g/dL HCT 38.1 % MCV 100.5 fL MCH 33.0 pg MCHC 32.8 g/dL RDW 12.8 % Platelet Count 160 10 3/cmm MPV 11.2 fL Neutrophils 3.42 10 3/uL Lymphocytes 1.2 10 3/uL Monocytes 0.6 10 3/uL Eosinophils 1.0 10 3/uL Basophils 0.1 10 3/uL Neutrophil % 54.3 % Lymphocyte % 18.3 % Monocyte % 9.8 % Eosinophil % 16.5 % Basophils % 0.8 % NRBC % 0 % Test performed on May 27, 2020 08:25 CBC Slide Review Slide Review Perform SLIDE REVIEW AGREES WITH AUTOMATED DIFF Test performed on Apr 29, 2020 09:17 Potassium 4.4 mmol/L Chloride 106 mmol/L CO2 21 mmol/L UIBC 100 mcg/dL Anion Gap 13.4 AST (SGOT) 50 U/L Impression: 1. Patient with hereditary hemorrhagic telangiectasia. He has had iron deficiency anemia associated with chronic blood loss, which has included epistaxis and GI blood loss. 2. He has been followed here since December 2016. During subsequent follow-up he required parenteral iron replacement on multiple occasions, and he received multiple transfusions of PRBC. 3. He underwent EGD for acute GI bleeding on 02/15/2018. He was noted to have multiple AVMs in the gastric body. There were associated stigmata of bleeding, and he was treated with clipping and/or cautery. 4. His bone marrow aspiration/biopsy on 05/18/2018 showed no diagnostic findings. The marrow was hypercellular and there was erythroid hyperplasia, but there was just mild erythrocyte dyspoiesis and mild megakaryocyte dyspoiesis. There was just scant storage iron. The findings were felt to be consistent with either chronic blood loss or hemolysis, but with myelodysplasia not entirely excluded. 5. In November 2018 he was seen at [facility] for a second opinion evaluation. He began a trial therapy with tranexamic acid, but with no apparent benefit. 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 Despite that, he continued to require transfusion on a pretty much weekly basis. 6. 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 Based on that finding, he was approved for trial of therapy with a Avastin. He received his initial infusion at 5 mg/kg dosage on 02/19/2019. His baseline hemoglobin was 7.4 g, and at that time he also did receive a transfusion of PRBC. He received a second infusion of a Avastin on 03/05/2019, with the dosage adjusted or a 3-week interval. At that point his hemoglobin had stabilized at 10 g, and he then continued Avastin infusions at 2-week intervals with gradual increase in his hemoglobin/hematocrit levels. As of 08/22/2019 he had completed his 10th infusion of Avastin. His hemoglobin was stable at 13.2 g, and at that point we opted to try stopping his treatment. As of 11/22/2019 his hemoglobin had dropped back down to 9.6 g with transferrin saturation low at 13.6%, consistent with iron deficiency. He was given parenteral iron replacement with 2 infusions of Injectafer, which he did not show a significant response. As of 12/05/2019 he restarted treatment with Avastin 5 mg/kg by IV every 2 weeks. As of 01/02/2020 his hemoglobin had increased to 11.2 g, but at that point he still had evidence of iron deficiency with transferrin saturation 4.7%. He was given 2 additional infusions of Injectafer, and he continued Avastin at the same dose and schedule. As of March 2020 the interval of his Avastin infusions was increased to 4 weeks. Thus far his hemoglobin/hematocrit levels remain adequate and he appears stable clinically. Plan: 1. Proceed with Avastin every 4 weeks as scheduled today. 2. UA for Avastin monitoring is pending. 3. Labs from today were reviewed in detail and discussed with Mr. Mrs. Ivey and a copy was given to them. WBC 6.3 hemoglobin 12.5 platelets 160,000 ANC is 3400. Creatinine 0.7 random glucose was 73 LFTs are normal his iron level is 98 TIBC is 203 and iron sat is 48.2%. 4. We will plan continue the current plan of care. He will continue Avastin every 4 weeks and plan for follow-up visit with Dr. Olmos in 3 months. I have asked for CBC, CMP, UA, iron studies and B12 with that visit. . Mr. Ivey has been encouraged to contact us in the interim should questions or problems arise. Signed By: Hermila Melgar-, AOCNP Jalil Olmos MD <<Signature on File>>
[2020-06-24 13:51] LABS: Bilirubin Urine Neg (NEGATIVE); Blood Urine Neg (Negative); Glucose Urine UA Norm (Normal); Ketones Urine Negative (Negative); Nitrate Urine Negative (Negative); Protein Urine Neg (Negative); Specific Gravity, Urine 1.015 (1.005-1.030); pH Urine 5 (5-7)
[2020-06-24 13:52] LABS: Leukocyte Esterase Urine Negative (Negative); Urobilinogen Urine Norm (Negative)
== END 2020-06-24 05:57 | disposition home or self-care (01) ==
LOC: ONCMED 05:57
PROVIDERS: PCP Emergency Medicine Emergency Medical Services; Visit Provider Nurse Practitioner
DX: Z51.11 Encounter for antineoplastic chemotherapy (principal); I78.0 Hereditary hemorrhagic telangiectasia; D50.0 Iron deficiency anemia secondary to blood loss (chronic); K92.2 Gastrointestinal hemorrhage, unspecified; R04.0 Epistaxis
CPT/HCPCS: 80053; 81003; 82728; 82746; 83540; 83550; 85025; 96413; 99214; J7050; J9035

== ENCOUNTER 2020-07-22 05:59 | Outpatient (CLI) | payer OTHER, SELFPAY ==
[2020-07-22] MEDS: sodium chloride 0.9% 250 ML 75 ML IV (09:25)
== END 2020-07-22 06:00 | disposition home or self-care (01) ==
LOC: ONCMED 06:00
PROVIDERS: PCP Emergency Medicine Emergency Medical Services; Visit Provider Nurse Practitioner
DX: Z51.11 Encounter for antineoplastic chemotherapy (principal); I78.0 Hereditary hemorrhagic telangiectasia; K92.2 Gastrointestinal hemorrhage, unspecified; D50.0 Iron deficiency anemia secondary to blood loss (chronic)
CPT/HCPCS: 96413; J7050; J9035

== ENCOUNTER 2020-08-19 09:02 | Outpatient (CLI) | payer OTHER, SELFPAY ==
[2020-08-19] MEDS: sodium chloride 0.9% 250 ML 75 ML IV (09:30)
== END 2020-08-19 09:03 | disposition home or self-care (01) ==
LOC: ONCMED 09:02
PROVIDERS: PCP Emergency Medicine Emergency Medical Services; Visit Provider Nurse Practitioner
DX: I78.0 Hereditary hemorrhagic telangiectasia (principal); K92.2 Gastrointestinal hemorrhage, unspecified; D50.0 Iron deficiency anemia secondary to blood loss (chronic)
CPT/HCPCS: 96413; J7050; J9035

== ENCOUNTER 2020-09-16 12:37 | Outpatient (CLI) | payer OTHER, SELFPAY ==
[2020-09-16 13:14] LABS: Add Urine Microscopic? NO
[2020-09-16 13:18] LABS: Basophils # 0.1 10^3/uL (0.0-0.1); Basophils % 1.1 %; Eosinophils # 0.5 10^3/uL (0.0-0.8); Eosinophils % 9.4 %; Hematocrit 42.3 % (42.0-52.0); Hemoglobin 13.6 g/dL (11.7-16.6); Lymphocytes # 0.9 10^3/uL (0.8-4.8); Lymphocytes % 15.9 %; Mean Corpuscular HGB Conc 32.2 g/dL (30.0-36.0); Mean Corpuscular Hemoglobin 31.9 pg (28.0-34.0); Mean Corpuscular Volume 99.1 fL (80-94); Mean Platelet Volume 10.6 fL (7.4-10.4); Monocytes # 0.5 10^3/uL (0.2-0.9); Monocytes % 9.6 %; Neutrophils # 3.41 10^3/uL (1.8-7.7); Neutrophils % 63.8 %; Nucleated Red Blood Cells % 0 %; Platelet Count 180 10^3/cmm (130-400); Red Blood Count 4.27 10^6/uL (4.1-5.3); Red Cell Distribution Width 13.3 % (12.1-15.1); White Blood Count 5.3 10^3/uL (4.0-10.0)
[2020-09-16 13:38] LABS: Alanine Aminotransferase 13 U/L (0-41); Albumin Level 4.1 g/dL (3.5-5.2); Alkaline Phosphatase 97 IU/L (40-130); Anion Gap 14.4 (5-19); Aspartate Amino Transferase 42 U/L (0-40); Blood Urea Nitrogen 13 mg/dL (8-23); Calcium 9.4 mg/dL (8.5-10.5); Carbon Dioxide 25 mmol/L (22-29); Chloride 103 mmol/L (98-107); Globulin 3.2 g/dL (1.3-4.6); Glucose 85 mg/dL (65-115); Osmolality Calculated 285 mOsm/kg (285-295); Potassium 4.4 mmol/L (3.5-5.1); Sodium 138 mmol/L (136-145); Total Bilirubin 0.4 mg/dL (0.15-1.2); Total Protein 7.3 g/dL (6.6-8.7)
[2020-09-16 13:44] LABS: Bilirubin Urine Neg (Negative); Blood Urine Neg (Negative); Glucose Urine UA Norm (Normal); Ketones Urine Negative (Negative); Leukocyte Esterase Urine Negative (Negative); Nitrate Urine Negative (Negative); Protein Urine Neg (Negative); Specific Gravity, Urine 1.005 (1.005-1.030); Urine Appearance Clear (CLEAR); Urine Color Straw (Yellow); Urobilinogen Urine Norm (Negative)
[2020-09-16] MEDS: sodium chloride 0.9% 250 ML 75 ML IV (14:50)
--- NOTE | 2020-09-19 16:18 | ONC FU_ITS ---
Dr. 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 History of Present Illness: This is an 84 year-old man with hereditary hemorrhagic telangiectasia. He has associated iron deficiency anemia from chronic blood loss. He was initially seen here by Dr. Camacho on 01/20/2017. He had a history of chronic, iron dependent anemia, beginning 35 years earlier with the discovery of a bleeding ulcer. He had gone off of his iron 8 years earlier at the suggestion of his PCP, but he very quickly needed a blood transfusion 3 weeks later . He then continued on oral iron as well as oral B12 every day. He also reported a 40-year history of having frequent nosebleeds, almost daily. [facility] diagnosis of hereditary hemorrhagic telangiectasias. His recent hemoglobin with Dr. Orlando had been low at 9.1 g. His laboratory studies at that time included CBC showing hemoglobin 10.2 g, white blood cell count 5400 and platelet count 245,000. The red cell indices were normal. The uncorrected reticulocyte count was 3.6%. Haptoglobin was normal at 227 mg/dL with total bilirubin normal at 0.3 mg/dL and LDH normal at 153 U/L. His B12 and folate levels were both normal, as was the methylmalonic acid level. Ferritin was low at 19.2 ng/mL. He was given parenteral iron replacement with infusions of Injectafer on 02/02/2017 and on 02/09/2017. He tolerated it well. On his follow-up visit on 03/10/2017 his hemoglobin was basically unchanged at 10.3 g. Serum iron was still low at 33 mcg/dL with transferrin saturation 9.5%. Ferritin had come up to 84 ng/mL compared to 19 ng from milliliter on 01/20/2017. He was given additional infusions of Injectafer on 03/10/2017 and on 03/17/2017. His follow-up CBC on 04/14/2017 still showed mild anemia with hemoglobin 10.6 g. The serum iron studies still showed low transferrin saturation of 12%. The ferritin was up to 117 ng/mL. He failed to return for further follow-up. On 02/13/2018 he was admitted to the hospital after presenting to the emergency room with recurrent anemia, hemoglobin 7.4 g. He was transfused with 2 units of packed red blood cells. EGD showed multiple gastric AVMs which were treated with either clipping and/or cautery. He was then back in the emergency room on 02/23/2018 with hemoglobin 7.3 g, and he received another 2 units of packed red blood cells. I had seen him for a follow-up visit on 03/02/2018. His hemoglobin was still only 8.7 g with transferrin saturation low at 15.7% and ferritin low at 22 ng/mL. He was then given additional parenteral iron replacement with infusions of Injectafer on 03/13/2018 and 03/21/2018. Despite the iron infusions, as of his follow-up visit on 04/20/2018 his hemoglobin was back down to 7.5 g with transferrin saturation 15.9%. He was transfused 2 units of packed red blood cells and he was given additional infusions of Injectafer on 04/20/2018 and on 04/27/2018. As of 05/04/2018 his hemoglobin had further decline to 6.3 g with white blood cell count 4400 and platelet count 192,000. The red cell indices were macrocytic, MCV 113 and MCH 36. The uncorrected reticulocyte count was 14.4%. Haptoglobin was low at 27.1 mg/dL with LDH normal at 231 U/L. He was given a transfusion of 3 units of PRBC on 05/05/2018. He required further transfusions of 2 units of PRBC on 05/12/2018 and again on 05/23/2018. He underwent bone marrow aspiration/biopsy on 05/18/2018. The marrow was hypercellular, estimated at 80-90%. There was erythroid hyperplasia. There was limited megakaryocyte dyspoiesis and limited dyserythropoiesis. There was just scant storage iron. There was no evidence of an infiltrative process. Flow cytometry showed no aberrant myeloid or lymphoid populations, and a FISH panel for MDS was unrevealing. 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 The remainder showed normal chromosome complement. With those findings and with recurrent iron deficiency despite repeated infusions of parenteral iron, he was referred to [facility] for a second opinion evaluation. He was seen there in November 2018, and he subsequently began a trial of therapy with tranexamic acid. 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 Despite that, he required blood transfusions again on 01/18/2019, on 01/22/2019, on 02/05/2019, on 02/12/2019, and on 02/19/2019. 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 With that finding, we were able to get approval for a trial of therapy with a Avastin. He received his initial infusion of a Avastin at the 5 mg/kg dosage on 02/19/2019. He tolerated it well. As of 03/01/2019 his hemoglobin was adequate at 10.8 g. He continued with his second infusion of Avastin on 03/05/2019. The dosage was adjusted to a 3-week interval to allow for a planned vacation to [place]. His medical history is otherwise unremarkable. He reports no other medical illnesses. His most recent colonoscopy was in 2007. He is a nonsmoker. INTERIM HISTORY: Following his initial infusion of a Avastin, his hemoglobin had stabilized at 10 g. He continued with a second infusion on 03/05/2019, and thereafter he continued the a Avastin at 2-week intervals. During that time he experienced a gradual increase in his hemoglobin/hematocrit levels. As of 08/22/2019 he received his 10th infusion of a Avastin. His hemoglobin was stable at 13.2 g, and we opted to try stopping his treatment. As of his follow-up visit on 11/22/2019 his hemoglobin had decreased to 9.6 g. His transferrin saturation was low at 13.6%, consistent with recurrent iron deficiency. He was then given parenteral iron replacement with 2 infusions of Injectafer. As of 12/05/2019, hemoglobin remained stable at 9.5 g, and at that point he restarted Avastin at 5 mg/kg by IV infusion every 2 weeks. As of 01/02/2020 his hemoglobin had increased to 11.3 g. His transferrin saturation, though, was low again at 4.7%, and he was given further parenteral iron replacement with 2 additional infusions of Injectafer. He continued treatment with Avastin every 2 weeks. As of March 2020 the interval was increased to 4 weeks. He is seen for a scheduled visit. He has been feeling good generally. He has pretty good energy. He does tire out with activity. His ECOG score is 1. He has good appetite. He has no fever or night sweats. He has no shortness of breath, cough, or chest pain. He has no GI or complaints. He has some joint pain, mainly in his hands. He has no focal neurologic symptoms. He does report that he bruises easily. He has had no other bleeding. Medications: B-12 1 Tablet (of 500 mcg) Tablet, sublingual Sublingual daily, Benadryl Allergy 1 Tablet (of 25 mg) Oral at bedtime PRN, C 1000 1 Tablet (of 1000 mg) Oral daily, Cetirizine HCl 1 (10 mg) Capsule Oral daily PRN, Ferrous Sulfate 2 (325 (65 fe) mg) Tablet Oral daily Allergies: No Known Allergies. Review of Systems: Constitutional - His energy has been pretty good, but he does tend to tire out. Appetite is good and weight is stable. No fever, night sweats, or hot flashes. ECOG score is 1, ENMT - He has allergy related sinus symptoms. No mouth sores. No sore throat or difficulty swallowing, Hematologic/Lymphatic - He has some bruising, but he has had no other bleeding, Respiratory - No shortness of breath. No cough. No pleuritic pain or hemoptysis, Cardiovascular - No angina pain. No palpitations, Gastrointestinal - No nausea or vomiting. No heartburn or acid reflux. No diarrhea or constipation. No blood in the stool or black stools, Genitourinary (M) - No dysuria or hematuria. No urinary frequency. No urgency or incontinence, Musculoskeletal - He has some joint pain, mainly in his hands, Integumentary - No skin rash, Neurologic - No headache or dizziness. No numbness or tingling. No other focal neurologic symptoms, Psychiatric - He has some anxiety/depression. No insomnia. Vital Signs: Performed on Sep 16, 2020 14:06 Height - 70.00 in Weight - 159.6 lbs (LOW) BSA - 1.90 sq.m BMI - 22.90 Temperature - 97.8 F (LOW) Pulse - 65 /min Respiration - 18 /min BP - 174/73 mm(hg) (HIGH) O2 Sat - 99 % Pain - 0 Physical Examination: Constitutional - He looks good generally, Eyes - Sclerae nonicteric. Conjunctivae clear, ENMT - There are no lesions noted in the oral cavity, Hematologic/Lymphatic - No cervical, clavicular, or axillary adenopathy, Respiratory - Lungs are clear with diminished air movement bilaterally, Cardiovascular - Heart rhythm is regular. There is a II/ systolic murmur. There is no gallop or rub noted, Abdomen - Soft. Liver and spleen are not enlarged. There is no abdominal mass or ascites noted and there is no inguinal adenopathy, Extremities - No edema, Integumentary - There are scattered telangiectasia in the facial area, Neurologic - No focal neurologic deficits noted. Lab/Imaging: Test performed on Sep 16, 2020 12:57 Sodium 138 mmol/L Potassium 4.4 mmol/L Chloride 103 mmol/L CO2 25 mmol/L Anion Gap 14.4 BUN 13 mg/dL Creatinine 0.8 mg/dL Cr Clearance (Est) 70.7700 mL/min Glucose 85 mg/dL Osmolality - Calculated 285 mOsm/kg Calcium 9.4 mg/dL Protein, Total 7.3 g/dL Albumin 4.1 g/dL Globulin 3.2 g/dL Bilirubin, Total 0.4 mg/dL ALT (SGPT) 13 U/L AST (SGOT) 42 U/L Alkaline Phosphatase 97 IU/L WBC 5.3 10 3/uL RBC 4.27 10 6/uL HGB 13.6 g/dL HCT 42.3 % MCV 99.1 fL MCH 31.9 pg MCHC 32.2 g/dL RDW 13.3 % Platelet Count 180 10 3/cmm MPV 10.6 fL Neutrophils 3.41 10 3/uL Lymphocytes 0.9 10 3/uL Monocytes 0.5 10 3/uL Eosinophils 0.5 10 3/uL Basophils 0.1 10 3/uL Neutrophil % 63.8 % Lymphocyte % 15.9 % Monocyte % 9.6 % Eosinophil % 9.4 % Basophils % 1.1 % NRBC % 0 % Impression: 1. Patient with hereditary hemorrhagic telangiectasia. He has had iron deficiency anemia associated with chronic blood loss, which has included epistaxis and GI blood loss. 2. He has been followed here since December 2016. During subsequent follow-up he required parenteral iron replacement on multiple occasions, and he received multiple transfusions of PRBC. 3. He underwent EGD for acute GI bleeding on 02/15/2018. He was noted to have multiple AVMs in the gastric body. There were associated stigmata of bleeding, and he was treated with clipping and/or cautery. 4. His bone marrow aspiration/biopsy on 05/18/2018 showed no diagnostic findings. The marrow was hypercellular and there was erythroid hyperplasia, but there was just mild erythrocyte dyspoiesis and mild megakaryocyte dyspoiesis. There was just scant storage iron. The findings were felt to be consistent with either chronic blood loss or hemolysis, but with myelodysplasia not entirely excluded. 5. In November 2018 he was seen at [facility] for a second opinion evaluation. He began a trial therapy with tranexamic acid, but with no apparent benefit. 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 Despite that, he continued to require transfusion on a pretty much weekly basis. 6. 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 Based on that finding, he was approved for trial of therapy with a Avastin. He received his initial infusion at 5 mg/kg dosage on 02/19/2019. His baseline hemoglobin was 7.4 g, and at that time he also did receive a transfusion of PRBC. He received a second infusion of a Avastin on 03/05/2019, with the dosage adjusted or a 3-week interval. At that point his hemoglobin had stabilized at 10 g, and he then continued Avastin infusions at 2-week intervals with gradual increase in his hemoglobin/hematocrit levels. As of 08/22/2019 he had completed his 10th infusion of Avastin. His hemoglobin was stable at 13.2 g, and at that point we opted to try stopping his treatment. As of 11/22/2019 his hemoglobin had dropped back down to 9.6 g with transferrin saturation low at 13.6%, consistent with iron deficiency. He was given parenteral iron replacement with 2 infusions of Injectafer, which he did not show a significant response. As of 12/05/2019 he restarted treatment with Avastin 5 mg/kg by IV every 2 weeks. As of 01/02/2020 his hemoglobin had increased to 11.2 g, but at that point he still had evidence of iron deficiency with transferrin saturation 4.7%. He was given 2 additional infusions of Injectafer, and he continued Avastin at the same dose and schedule. As of March 2020 the interval of his Avastin infusions was increased to 4 weeks. During follow-up his hemoglobin/hematocrit levels have remained stable, and he has been stable clinically. Plan: He will continue treatment with Avastin at 5 mg/kg by IV infusion every 4 weeks. He will be scheduled for a followup visit in 3 months. Signed By: Jalil Olmos M.D. <<Signature on File>>
== END 2020-09-16 12:38 | disposition home or self-care (01) ==
LOC: ONCMED 12:38
PROVIDERS: PCP Emergency Medicine Emergency Medical Services; Visit Provider Internal Medicine Medical Oncology
DX: Z51.11 Encounter for antineoplastic chemotherapy (principal); I78.0 Hereditary hemorrhagic telangiectasia; K92.2 Gastrointestinal hemorrhage, unspecified; D50.0 Iron deficiency anemia secondary to blood loss (chronic); Z79.899 Other long term (current) drug therapy
CPT/HCPCS: 80053; 81003; 85025; 96413; 99214; J7050; J9035

== ENCOUNTER 2020-10-14 12:01 | Outpatient (CLI) | payer OTHER, SELFPAY ==
[2020-10-14 12:54] LABS: Basophils # 0.1 10^3/uL (0.0-0.1); Eosinophils # 0.7 10^3/uL (0.0-0.8); Hematocrit 36.9 % (42.0-52.0); Lymphocytes % 19.2 %; Mean Corpuscular HGB Conc 32.5 g/dL (30.0-36.0); Mean Corpuscular Hemoglobin 32.1 pg (28.0-34.0); Mean Corpuscular Volume 98.7 fL (80-94); Mean Platelet Volume 10.7 fL (7.4-10.4); Monocytes # 0.6 10^3/uL (0.2-0.9); Monocytes % 11.5 %; Neutrophils # 2.79 10^3/uL (1.8-7.7); Neutrophils % 55.1 %; Nucleated Red Blood Cells % 0 %; Platelet Count 144 10^3/cmm (130-400); Red Blood Count 3.74 10^6/uL (4.1-5.3); Red Cell Distribution Width 13.5 % (12.1-15.1); White Blood Count 5.1 10^3/uL (4.0-10.0)
[2020-10-14] MEDS: sodium chloride 0.9% 250 ML 75 ML IV (13:04)
== END 2020-10-14 12:02 | disposition home or self-care (01) ==
LOC: ONCMED 12:02
PROVIDERS: PCP Emergency Medicine Emergency Medical Services; Visit Provider Internal Medicine Medical Oncology
DX: Z51.11 Encounter for antineoplastic chemotherapy (principal); I78.0 Hereditary hemorrhagic telangiectasia; K92.2 Gastrointestinal hemorrhage, unspecified; D50.0 Iron deficiency anemia secondary to blood loss (chronic)
CPT/HCPCS: 85025; 96413; J7050; J9035

== ENCOUNTER 2020-11-11 12:32 | Outpatient (CLI) | payer OTHER, SELFPAY ==
[2020-11-11 13:07] LABS: Basophils # 0.1 10^3/uL (0.0-0.1); Basophils % 1.3 %; Eosinophils # 0.6 10^3/uL (0.0-0.8); Eosinophils % 11.6 %; Hematocrit 36.7 % (42.0-52.0); Lymphocytes % 17.4 %; Mean Corpuscular HGB Conc 32.7 g/dL (30.0-36.0); Mean Corpuscular Hemoglobin 32.2 pg (28.0-34.0); Mean Corpuscular Volume 98.4 fL (80-94); Mean Platelet Volume 10.5 fL (7.4-10.4); Monocytes # 0.5 10^3/uL (0.2-0.9); Neutrophils # 3.34 10^3/uL (1.8-7.7); Neutrophils % 60.3 %; Nucleated Red Blood Cells % 0 %; Platelet Count 154 10^3/cmm (130-400); Red Blood Count 3.73 10^6/uL (4.1-5.3); Red Cell Distribution Width 13.9 % (12.1-15.1); White Blood Count 5.5 10^3/uL (4.0-10.0)
[2020-11-11] MEDS: sodium chloride 0.9% 250 ML 75 ML IV (14:25)
== END 2020-11-11 12:33 | disposition home or self-care (01) ==
PROVIDERS: PCP Emergency Medicine Emergency Medical Services; Visit Provider Internal Medicine Medical Oncology
DX: Z51.11 Encounter for antineoplastic chemotherapy (principal); I78.0 Hereditary hemorrhagic telangiectasia; K92.2 Gastrointestinal hemorrhage, unspecified; D50.0 Iron deficiency anemia secondary to blood loss (chronic)
CPT/HCPCS: 85025; 96413; J7050; J9035

== ENCOUNTER 2020-12-18 13:13 | Outpatient (CLI) | payer OTHER, SELFPAY ==
[2020-12-18 14:03] LABS: Alanine Aminotransferase < 5 U/L (0-41); Albumin Level 3.7 g/dL (3.5-5.2); Alkaline Phosphatase 85 IU/L (40-130); Anion Gap 12.2 (5-19); Aspartate Amino Transferase 46 U/L (0-40); Blood Urea Nitrogen 15 mg/dL (8-23); Calcium 8.7 mg/dL (8.5-10.5); Carbon Dioxide 22 mmol/L (22-29); Chloride 106 mmol/L (98-107); Globulin 3.2 g/dL (1.3-4.6); Glucose 142 mg/dL (65-115); Iron 151 ug/dL (59-158); Osmolality Calculated 285 mOsm/kg (285-295); Percent Saturation 60.6 % (20-50); Potassium 4.2 mmol/L (3.5-5.1); Sodium 136 mmol/L (136-145); Total Bilirubin 0.5 mg/dL (0.15-1.2); Total Iron Binding Capacity 249 mcg/dl; Total Protein 6.9 g/dL (6.6-8.7); Unsaturated Iron Binding 98 ug/dL (112-347)
[2020-12-18 14:08] LABS: Basophils # 0.1 10^3/uL (0.0-0.1); Basophils % 1.4 %; Eosinophils # 0.4 10^3/uL (0.0-0.8); Eosinophils % 7.4 %; Hematocrit 37.7 % (42.0-52.0); Hemoglobin 12.3 g/dL (11.7-16.6); Lymphocytes # 1.1 10^3/uL (0.8-4.8); Lymphocytes % 18.5 %; Mean Corpuscular HGB Conc 32.6 g/dL (30.0-36.0); Mean Corpuscular Hemoglobin 32.1 pg (28.0-34.0); Mean Corpuscular Volume 98.4 fL (80-94); Monocytes # 0.6 10^3/uL (0.2-0.9); Monocytes % 9.5 %; Neutrophils # 3.65 10^3/uL (1.8-7.7); Nucleated Red Blood Cells % 0 %; Platelet Count 164 10^3/cmm (130-400); Red Blood Count 3.83 10^6/uL (4.1-5.3); Red Cell Distribution Width 14.2 % (12.1-15.1); White Blood Count 5.8 10^3/uL (4.0-10.0)
[2020-12-18] MEDS: sodium chloride 0.9% 250 ML 75 ML IV (15:10)
--- NOTE | 2020-12-27 17:54 | ONC FU_ITS ---
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 History of Present Illness: Mr Nguyen is an 85 year-old gentleman with hereditary hemorrhagic telangiectasia. He has associated iron deficiency anemia from chronic blood loss. He was initially seen here by Dr. Camacho on 01/20/2017. He had a history of chronic, iron dependent anemia, beginning 35 years earlier with the discovery of a bleeding ulcer. He had gone off of his iron 8 years earlier at the suggestion of his PCP, but he very quickly needed a blood transfusion 3 weeks later . He then continued on oral iron as well as oral B12 every day. He also reported a 40-year history of having frequent nosebleeds, almost daily. [facility] diagnosis of hereditary hemorrhagic telangiectasias. His recent hemoglobin with Dr. Orlando had been low at 9.1 g. His laboratory studies at that time included CBC showing hemoglobin 10.2 g, white blood cell count 5400 and platelet count 245,000. The red cell indices were normal. The uncorrected reticulocyte count was 3.6%. Haptoglobin was normal at 227 mg/dL with total bilirubin normal at 0.3 mg/dL and LDH normal at 153 U/L. His B12 and folate levels were both normal, as was the methylmalonic acid level. Ferritin was low at 19.2 ng/mL. He was given parenteral iron replacement with infusions of Injectafer on 02/02/2017 and on 02/09/2017. He tolerated it well. On his follow-up visit on 03/10/2017 his hemoglobin was basically unchanged at 10.3 g. Serum iron was still low at 33 mcg/dL with transferrin saturation 9.5%. Ferritin had come up to 84 ng/mL compared to 19 ng from milliliter on 01/20/2017. He was given additional infusions of Injectafer on 03/10/2017 and on 03/17/2017. His follow-up CBC on 04/14/2017 still showed mild anemia with hemoglobin 10.6 g. The serum iron studies still showed low transferrin saturation of 12%. The ferritin was up to 117 ng/mL. He failed to return for further follow-up. On 02/13/2018 he was admitted to the hospital after presenting to the emergency room with recurrent anemia, hemoglobin 7.4 g. He was transfused with 2 units of packed red blood cells. EGD showed multiple gastric AVMs which were treated with either clipping and/or cautery. He was then back in the emergency room on 02/23/2018 with hemoglobin 7.3 g, and he received another 2 units of packed red blood cells. Dr Olmos had seen him for a follow-up visit on 03/02/2018. His hemoglobin was still only 8.7 g with transferrin saturation low at 15.7% and ferritin low at 22 ng/mL. He was then given additional parenteral iron replacement with infusions of Injectafer on 03/13/2018 and 03/21/2018. Despite the iron infusions, as of his follow-up visit on 04/20/2018 his hemoglobin was back down to 7.5 g with transferrin saturation 15.9%. He was transfused 2 units of packed red blood cells and he was given additional infusions of Injectafer on 04/20/2018 and on 04/27/2018. As of 05/04/2018 his hemoglobin had further decline to 6.3 g with white blood cell count 4400 and platelet count 192,000. The red cell indices were macrocytic, MCV 113 and MCH 36. The uncorrected reticulocyte count was 14.4%. Haptoglobin was low at 27.1 mg/dL with LDH normal at 231 U/L. He was given a transfusion of 3 units of PRBC on 05/05/2018. He required further transfusions of 2 units of PRBC on 05/12/2018 and again on 05/23/2018. He underwent bone marrow aspiration/biopsy on 05/18/2018. The marrow was hypercellular, estimated at 80-90%. There was erythroid hyperplasia. There was limited megakaryocyte dyspoiesis and limited dyserythropoiesis. There was just scant storage iron. There was no evidence of an infiltrative process. Flow cytometry showed no aberrant myeloid or lymphoid populations, and a FISH panel for MDS was unrevealing. 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 The remainder showed normal chromosome complement. With those findings and with recurrent iron deficiency despite repeated infusions of parenteral iron, he was referred to [facility] for a second opinion evaluation. He was seen there in November 2018, and he subsequently began a trial of therapy with tranexamic acid. 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 Despite that, he required blood transfusions again on 01/18/2019, on 01/22/2019, on 02/05/2019, on 02/12/2019, and on 02/19/2019. 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 With that finding, we were able to get approval for a trial of therapy with a Avastin. He received his initial infusion of a Avastin at the 5 mg/kg dosage on 02/19/2019. He tolerated it well. As of 03/01/2019 his hemoglobin was adequate at 10.8 g. He continued with his second infusion of Avastin on 03/05/2019. The dosage was adjusted to a 3-week interval to allow for a planned vacation to [place]. His medical history is otherwise unremarkable. He reports no other medical illnesses. His most recent colonoscopy was in 2007. He is a nonsmoker. INTERIM HISTORY: Following his initial infusion of a Avastin, his hemoglobin had stabilized at 10 g. He continued with a second infusion on 03/05/2019, and thereafter he continued the a Avastin at 2-week intervals. During that time he experienced a gradual increase in his hemoglobin/hematocrit levels. As of 08/22/2019 he received his 10th infusion of a Avastin. His hemoglobin was stable at 13.2 g, and we opted to try stopping his treatment. As of his follow-up visit on 11/22/2019 his hemoglobin had decreased to 9.6 g. His transferrin saturation was low at 13.6%, consistent with recurrent iron deficiency. He was then given parenteral iron replacement with 2 infusions of Injectafer. As of 12/05/2019, hemoglobin remained stable at 9.5 g, and at that point he restarted Avastin at 5 mg/kg by IV infusion every 2 weeks. As of 01/02/2020 his hemoglobin had increased to 11.3 g. His transferrin saturation, though, was low again at 4.7%, and he was given further parenteral iron replacement with 2 additional infusions of Injectafer. He continued treatment with Avastin every 2 weeks. As of March 2020 the interval was increased to 4 weeks. Loni is here today for follow-up. He is also due for his bevacizumab. He states overall he is doing really well. His energy is good. He states he does get tired with activity but recovers well with rest. His appetite is good. He denies any fever or chills. He denies any night sweats. He states that his breathing is good. He denies shortness of breath, cough or orthopnea. He denies any chest pain or palpitations. He denies any bowel or bladder symptoms. He states that he has chronic joint pain which is primarily in his hands but Occasionally bothers his knees and feet but generally overall is doing well. He states he does bruise easily but has had no episodes of bleeding that he is aware of. He denies any one-sided weakness or numbness or any TIA type symptoms. His ECOG is 1. He does report that he is planning to move to the [facility] in a couple of months. He is requesting a referral to either [place] or [facility]. I have asked him for more specific information so that we could figure out a location as to where to refer him. He will bring it with him at his follow-up next month. He reports that he has had his Covid vaccine. Past Medical History: Mr. Ivey's medical history is unremarkable. Past Surgical History: COVID vaccine in 2020 - at [facility] Flu vaccine in 2019 - left deltoid Allergies: No Known Allergies. Medications: B-12 1 Tablet (of 500 mcg) Tablet, sublingual Sublingual daily Benadryl Allergy 1 Tablet (of 25 mg) Oral at bedtime PRN C 1000 1 Tablet (of 1000 mg) Oral daily Ferrous Sulfate 2 (325 (65 fe) mg) Tablet Oral daily Family History: Mr. Ivey's mother at age 94. Mr. Ivey's father is : anemia. Mr. Ivey has 3 brothers: 1 alive, 2 . Mr. Ivey's first brother's lung cancer. He has 1 sister who is : cancer unspecified. Social History: Mr. Ivey is and he is retired. Mr. Ivey has never smoked. He drinks occasionally. Mr. Ivey reports the following support systems: lives with spouse, significant other, family, or friends, lives in own house, supportive family/friends willing to assist with needs, and adequate transportation available for expected visits. His diet consists of regular meals. He indicates his activity level as: daily activities. Review Of Symptoms: Constitutional Denies fevers, chills, night sweats, excessive fatigue or weight loss. Allergic/Immunologic No reactions. Eyes Denies significant visual changes. No diplopia. No amaurosis. ENMT Denies changes in hearing, sore throat, mouth sores, difficulty or changes in swallowing ability, and/or sinus drainage. Hematologic/Lymphatic Denies easy bruising or bleeding. The patient denies any tender or palpable lymph nodes. Respiratory Denies dyspnea on exertion, chest pain, cough or hemoptysis. Denies orthopnea. Cardiovascular Denies anginal chest pain, palpitations or orthopnea. Gastrointestinal Denies nausea, vomiting, diarrhea, GI bleeding, or constipation. Denies change in bowel habits and/or stool color, no heartburn or early satiety. Genitourinary (M) Denies hematuria, dysuria, increased frequency, urgency, hesitancy or incontinence. Musculoskeletal Denies joint pain, swelling or redness. No decreased range of motion. Integumentary Denies chronic rashes, inflammation, ulcerations or skin changes. Neurologic Denies headache, blurred vision, and no areas of focal weakness or numbness. Normal gait. No sensory problems. Psychiatric Denies insomnia, depression, juanita or mood swings. Vital Signs: Performed on Dec 18, 2020 15:52 Height - 70.00 in Temperature - 97.9 F (LOW) Pulse - 64 /min Respiration - 18 /min BP - 152/75 mm(hg) (HIGH) O2 Sat - 97 % Pain - 0 Performed on Dec 18, 2020 14:35 Height - 70.00 in Weight - 162.2 lbs (HIGH) BSA - 1.91 sq.m BMI - 23.27 Temperature - 97.4 F (LOW) Pulse - 68 /min Respiration - 19 /min BP - 161/70 mm(hg) (HIGH) O2 Sat - 98 % Pain - 0,0 - Fully active, able to carry on all predisease activities without restrictions. (ECOG) Physical Examination: Constitutional Alert, oriented, no acute distress. Skin pink, warm and dry. Head Normocephalic; atraumatic. Eyes Conjunctivae and sclerae are clear and without icterus. Pupils are reactive and equal. Respiratory Lungs are clear to auscultation without rhonchi or wheezing. Cardiovascular Regular rate and rhythm of heart with systolic murmur but no clicks, gallops or rubs. Abdomen Non-tender, non-distended, no masses, ascites. Back/Spine Non-tender to palpation. Extremities No visible deformities, no cyanosis, clubbing or edema. Musculoskeletal No tenderness or swelling, normal range of motion without obvious weakness. Integumentary No rashes or lesions. Neurologic No sensory or motor deficits, normal cerebellar function, normal gait. Psychiatric Alert and oriented times three. Coherent speech. Verbalizes understanding of our discussions today. Laboratory:Test performed on Dec 18, 2020 13:25 Iron 151 mcg/dL Sodium 136 mmol/L Iron Binding Capacity (TIBC) 249 mcg/dl Potassium 4.2 mmol/L % Iron Saturation 60.6 % Chloride 106 mmol/L CO2 22 mmol/L UIBC 98 mcg/dL Anion Gap 12.2 BUN 15 mg/dL Creatinine 0.7 mg/dL Cr Clearance (Est) 80.8800 mL/min Glucose 142 mg/dL Osmolality - Calculated 285 mOsm/kg Calcium 8.7 mg/dL Protein, Total 6.9 g/dL Albumin 3.7 g/dL Globulin 3.2 g/dL Bilirubin, Total 0.5 mg/dL ALT (SGPT) < 5 U/L AST (SGOT) 46 U/L Alkaline Phosphatase 85 IU/L WBC 5.8 10 3/uL RBC 3.83 10 6/uL HGB 12.3 g/dL HCT 37.7 % MCV 98.4 fL MCH 32.1 pg MCHC 32.6 g/dL RDW 14.2 % Platelet Count 164 10 3/cmm MPV 11.0 fL Neutrophils 3.65 10 3/uL Lymphocytes 1.1 10 3/uL Monocytes 0.6 10 3/uL Eosinophils 0.4 10 3/uL Basophils 0.1 10 3/uL Neutrophil % 63.0 % Lymphocyte % 18.5 % Monocyte % 9.5 % Eosinophil % 7.4 % Basophils % 1.4 % NRBC % 0 % Impression: 1. Patient with hereditary hemorrhagic telangiectasia. He has had iron deficiency anemia associated with chronic blood loss, which has included epistaxis and GI blood loss. 2. He has been followed here since December 2016. During subsequent follow-up he required parenteral iron replacement on multiple occasions, and he received multiple transfusions of PRBC. 3. He underwent EGD for acute GI bleeding on 02/15/2018. He was noted to have multiple AVMs in the gastric body. There were associated stigmata of bleeding, and he was treated with clipping and/or cautery. 4. His bone marrow aspiration/biopsy on 05/18/2018 showed no diagnostic findings. The marrow was hypercellular and there was erythroid hyperplasia, but there was just mild erythrocyte dyspoiesis and mild megakaryocyte dyspoiesis. There was just scant storage iron. The findings were felt to be consistent with either chronic blood loss or hemolysis, but with myelodysplasia not entirely excluded. 5. In November 2018 he was seen at [facility] for a second opinion evaluation. He began a trial therapy with tranexamic acid, but with no apparent benefit. 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 Despite that, he continued to require transfusion on a pretty much weekly basis. 6. 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 Based on that finding, he was approved for trial of therapy with a Avastin. He received his initial infusion at 5 mg/kg dosage on 02/19/2019. His baseline hemoglobin was 7.4 g, and at that time he also did receive a transfusion of PRBC. He received a second infusion of a Avastin on 03/05/2019, with the dosage adjusted or a 3-week interval. At that point his hemoglobin had stabilized at 10 g, and he then continued Avastin infusions at 2-week intervals with gradual increase in his hemoglobin/hematocrit levels. As of 08/22/2019 he had completed his 10th infusion of Avastin. His hemoglobin was stable at 13.2 g, and at that point we opted to try stopping his treatment. As of 11/22/2019 his hemoglobin had dropped back down to 9.6 g with transferrin saturation low at 13.6%, consistent with iron deficiency. He was given parenteral iron replacement with 2 infusions of Injectafer, which he did not show a significant response. As of 12/05/2019 he restarted treatment with Avastin 5 mg/kg by IV every 2 weeks. As of 01/02/2020 his hemoglobin had increased to 11.2 g, but at that point he still had evidence of iron deficiency with transferrin saturation 4.7%. He was given 2 additional infusions of Injectafer, and he continued Avastin at the same dose and schedule. As of March 2020 the interval of his Avastin infusions was increased to 4 weeks. During follow-up his hemoglobin/hematocrit levels have remained stable, and he has been stable clinically. Plan: He will continue treatment with Avastin at 5 mg/kg by IV infusion every 4 weeks. He will be scheduled for a followup visit in 3 months. PROBLEMS ADDRESSED TODAY 1. hereditary hemorrhagic telangiectasia He has had iron deficiency anemia associated with chronic blood loss, which has included epistaxis and GI blood loss. He has been followed here since December 2016. During subsequent follow-up he required parenteral iron replacement on multiple occasions, and he received multiple transfusions of PRBC. He underwent EGD for acute GI bleeding on 02/15/2018. He was noted to have multiple AVMs in the gastric body. There were associated stigmata of bleeding, and he was treated with clipping and/or cautery. His bone marrow aspiration/biopsy on 05/18/2018 showed no diagnostic findings. The marrow was hypercellular and there was erythroid hyperplasia, but there was just mild erythrocyte dyspoiesis and mild megakaryocyte dyspoiesis. There was just scant storage iron. The findings were felt to be consistent with either chronic blood loss or hemolysis, but with myelodysplasia not entirely excluded. In November 2018 he was seen at [facility] for a second opinion evaluation. He began a trial therapy with tranexamic acid, but with no apparent benefit. 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 Despite that, he continued to require transfusion on a pretty much weekly basis. 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 Based on that finding, he was approved for trial of therapy with a Avastin. A. Proceed with cycle 21 bevacizumab 5 mg/kg every 4 weeks B. Labs from today were reviewed in detail and discussed with Mr. Ivey and a copy was given to him. WBC 5.8, hemoglobin 12.3, platelets 1 64,000 ANC is 3650. Potassium 4.2 random glucose 142 creatinine 0.7 ALT is less than 5 AST is 46 alk phos 85 iron saturation is 60 iron level is 151. C. We will plan to see him back in 1 month for repeat Avastin. I have asked that he see Dr. Olmos at that time for follow-up and to initiate final visit if he does indeed want to move to [facility] still at that time. We will try to assist him in helping him find someone if we can determine what area he is relocating to. Signed By: Hermila Melgar-, [facility] Jalil Olmos MD <<Signature on File>>
== END 2020-12-18 13:14 | disposition home or self-care (01) ==
LOC: ONCMED 13:14
PROVIDERS: PCP Emergency Medicine Emergency Medical Services; Visit Provider Nurse Practitioner
DX: Z51.11 Encounter for antineoplastic chemotherapy (principal); I78.0 Hereditary hemorrhagic telangiectasia; K92.2 Gastrointestinal hemorrhage, unspecified; D50.0 Iron deficiency anemia secondary to blood loss (chronic); Z79.899 Other long term (current) drug therapy
CPT/HCPCS: 80053; 83540; 83550; 85025; 96413; 99214; J7050; J9035

== ENCOUNTER 2021-01-13 08:32 | Outpatient (CLI) | payer OTHER, SELFPAY ==
[2021-01-13] MEDS: sodium chloride 0.9% 250 ML 75 ML IV (09:20)
--- NOTE | 2021-01-14 08:51 | ONC FU_ITS ---
Dr. 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 He has associated iron deficiency anemia from chronic blood loss. He was initially seen here by Dr. Camacho on 01/20/2017. He had a history of chronic, iron dependent anemia, beginning 35 years earlier with the discovery of a bleeding ulcer. He had gone off of his iron 8 years earlier at the suggestion of his PCP, but he very quickly needed a blood transfusion 3 weeks later . He then continued on oral iron as well as oral B12 every day. He also reported a 40-year history of having frequent nosebleeds, almost daily. [facility] diagnosis of hereditary hemorrhagic telangiectasias. His recent hemoglobin with Dr. Orlando had been low at 9.1 g. His laboratory studies at that time included CBC showing hemoglobin 10.2 g, white blood cell count 5400 and platelet count 245,000. The red cell indices were normal. The uncorrected reticulocyte count was 3.6%. Haptoglobin was normal at 227 mg/dL with total bilirubin normal at 0.3 mg/dL and LDH normal at 153 U/L. His B12 and folate levels were both normal, as was the methylmalonic acid level. Ferritin was low at 19.2 ng/mL. He was given parenteral iron replacement with infusions of Injectafer on 02/02/2017 and on 02/09/2017. He tolerated it well. On his follow-up visit on 03/10/2017 his hemoglobin was basically unchanged at 10.3 g. Serum iron was still low at 33 mcg/dL with transferrin saturation 9.5%. Ferritin had come up to 84 ng/mL compared to 19 ng from milliliter on 01/20/2017. He was given additional infusions of Injectafer on 03/10/2017 and on 03/17/2017. His follow-up CBC on 04/14/2017 still showed mild anemia with hemoglobin 10.6 g. The serum iron studies still showed low transferrin saturation of 12%. The ferritin was up to 117 ng/mL. He failed to return for further follow-up. On 02/13/2018 he was admitted to the hospital after presenting to the emergency room with recurrent anemia, hemoglobin 7.4 g. He was transfused with 2 units of packed red blood cells. EGD showed multiple gastric AVMs which were treated with either clipping and/or cautery. He was then back in the emergency room on 02/23/2018 with hemoglobin 7.3 g, and he received another 2 units of packed red blood cells. I had seen him for a follow-up visit on 03/02/2018. His hemoglobin was still only 8.7 g with transferrin saturation low at 15.7% and ferritin low at 22 ng/mL. He was then given additional parenteral iron replacement with infusions of Injectafer on 03/13/2018 and 03/21/2018. Despite the iron infusions, as of his follow-up visit on 04/20/2018 his hemoglobin was back down to 7.5 g with transferrin saturation 15.9%. He was transfused 2 units of packed red blood cells and he was given additional infusions of Injectafer on 04/20/2018 and on 04/27/2018. As of 05/04/2018 his hemoglobin had further decline to 6.3 g with white blood cell count 4400 and platelet count 192,000. The red cell indices were macrocytic, MCV 113 and MCH 36. The uncorrected reticulocyte count was 14.4%. Haptoglobin was low at 27.1 mg/dL with LDH normal at 231 U/L. He was given a transfusion of 3 units of PRBC on 05/05/2018. He required further transfusions of 2 units of PRBC on 05/12/2018 and again on 05/23/2018. He underwent bone marrow aspiration/biopsy on 05/18/2018. The marrow was hypercellular, estimated at 80-90%. There was erythroid hyperplasia. There was limited megakaryocyte dyspoiesis and limited dyserythropoiesis. There was just scant storage iron. There was no evidence of an infiltrative process. Flow cytometry showed no aberrant myeloid or lymphoid populations, and a FISH panel for MDS was unrevealing. 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 The remainder showed normal chromosome complement. With those findings and with recurrent iron deficiency despite repeated infusions of parenteral iron, he was referred to [facility] for a second opinion evaluation. He was seen there in November 2018, and he subsequently began a trial of therapy with tranexamic acid. 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 Despite that, he required blood transfusions again on 01/18/2019, on 01/22/2019, on 02/05/2019, on 02/12/2019, and on 02/19/2019. 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 With that finding, we were able to get approval for a trial of therapy with a Avastin. He received his initial infusion of a Avastin at the 5 mg/kg dosage on 02/19/2019. He tolerated it well. As of 03/01/2019 his hemoglobin was adequate at 10.8 g. He then continued the Avastin at 2-week intervals. During that time he experienced a gradual increase in his hemoglobin/hematocrit levels. As of 08/22/2019 he received his 10th infusion of a Avastin. His hemoglobin was stable at 13.2 g, and we opted to try stopping his treatment. As of his follow-up visit on 11/22/2019 his hemoglobin had decreased to 9.6 g. His transferrin saturation was low at 13.6%, consistent with recurrent iron deficiency. He was then given parenteral iron replacement with 2 infusions of Injectafer. As of 12/05/2019, hemoglobin remained stable at 9.5 g, and at that point he restarted Avastin at 5 mg/kg by IV infusion every 2 weeks. As of 01/02/2020 his hemoglobin had increased to 11.3 g. His transferrin saturation, though, was low again at 4.7%, and he was given further parenteral iron replacement with 2 additional infusions of Injectafer. He continued treatment with Avastin every 2 weeks with his hemoglobin stabilizing in the range of 11 to 12 g. As of March 2020 the interval of his Avastin infusions was increased to 4 weeks. His medical history is otherwise unremarkable. He reports no other medical illnesses. His most recent colonoscopy was in 2007. He is a nonsmoker. INTERIM HISTORY: He is seen for a scheduled visit. He has been feeling good generally. He says his energy could be a little better, but he is doing light work. His ECOG score is 1. He has good appetite. He has no fever or night sweats. He does not complain of shortness of breath, cough, or chest pain. He has no GI or complaints. He does have some joint pain, mainly in the hands and shoulders. He does not complain of headache or dizziness, and he has no focal neurologic symptoms. He does report having easy bruising. He has no other bleeding manifestations. Medications: Benadryl Allergy 1 Tablet (of 25 mg) Oral at bedtime PRN, C 1000 1 Tablet (of 1000 mg) Oral daily, Cholecalciferol 1 Capsule (of 10 mcg ) Oral daily, Ferrous Sulfate 2 (325 (65 fe) mg) Tablet Oral daily Allergies: No Known Allergies. Vital Signs: Performed on Jan 13, 2021 08:39 Height - 70.00 in Weight - 162.2 lbs BSA - 1.91 sq.m BMI - 23.27 Temperature - 98.7 F Pulse - 73 /min Respiration - 18 /min BP - 161/78 mm(hg) (HIGH) O2 Sat - 96 % Pain - 0 Physical Examination: Constitutional - He looks good generally, Eyes - Sclerae nonicteric. Conjunctivae clear, ENMT - There are no lesions noted in the oral cavity, Hematologic/Lymphatic - No cervical, clavicular, or axillary adenopathy, Respiratory - Lungs are clear with diminished air movement bilaterally, Cardiovascular - Heart rhythm is regular. There is a II/ systolic murmur. There is no gallop or rub noted, Abdomen - Soft. Liver and spleen are not enlarged. There is no abdominal mass or ascites noted and there is no inguinal adenopathy, Extremities - No edema, Integumentary - There are scattered telangiectasia in the facial area. He has extensive actinic lesions on both arms. There is a recent biopsy site on the posterior aspect of the left ear, Neurologic - No focal neurologic deficits noted. Lab/Imaging: CBC shows hemoglobin 13.0 g, white blood cell count 6000, and platelet count 155,000. The red cell indices are slightly macrocytic. Urinalysis shows just trace protein. Problem List: 1. 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 2. He has had iron deficiency anemia associated with chronic blood loss, which has included epistaxis and GI blood loss. Problems Addressed with this Encounter and Plan: Patient with hereditary hemorrhagic telangiectasia. He has had iron deficiency anemia associated with chronic blood loss, which has included epistaxis and GI blood loss. He has been followed here since December 2016. During subsequent follow-up he required parenteral iron replacement on multiple occasions, and he received multiple transfusions of PRBC. He underwent EGD for acute GI bleeding on 02/15/2018. He was noted to have multiple AVMs in the gastric body. There were associated stigmata of bleeding, and he was treated with clipping and/or cautery. In November 2018 he was seen at [facility] for a second opinion evaluation. He began a trial therapy with tranexamic acid, but with no apparent benefit. 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 Despite that, he continued to require transfusion on a pretty much weekly basis. In January 2019 he began a trial of therapy with Avastin 5 mg/kg by IV infusion, initially administered at 2-week intervals. He had a very good clinical response with complete transfusion independence. As of 08/22/2019 he had completed his 10th infusion of Avastin. His hemoglobin was stable at 13.2 g, and at that point we opted to try stopping his treatment. As of 11/22/2019 his hemoglobin had dropped back down to 9.6 g with transferrin saturation low at 13.6%, consistent with iron deficiency. He was given parenteral iron replacement with 2 infusions of Injectafer, to which he did not show a significant response. As of 12/05/2019 he restarted treatment with Avastin 5 mg/kg by IV every 2 weeks. In December 2019 he did receive additional parenteral iron replacement with Injectafer, and he continued the Avastin infusions every 2 weeks. His hemoglobin then stabilized in the range of 11 to 12 g. As of March 2020 the interval of his Avastin infusions was increased to 4 weeks. During subsequent follow-up his hemoglobin/hematocrit levels have remained stable, and he has been stable clinically. He will continue treatment with Avastin at 5 mg/kg by IV infusion. He will be scheduled to return again in 1 month. He will then be relocating to [place], [place] and I will arrange for him to continue treatment with a compounder flavorings in that area. Signed By: Jalil Olmos M.D. <<Signature on File>>
== END 2021-01-13 08:33 | disposition home or self-care (01) ==
LOC: ONCMED 08:32
PROVIDERS: PCP Emergency Medicine Emergency Medical Services; Visit Provider Internal Medicine Medical Oncology
DX: I78.0 Hereditary hemorrhagic telangiectasia (principal); D50.0 Iron deficiency anemia secondary to blood loss (chronic); Z79.899 Other long term (current) drug therapy
CPT/HCPCS: 96413; 99214; J7050; J9035

== ENCOUNTER 2021-02-10 13:52 | Outpatient (CLI) | payer OTHER, SELFPAY ==
[2021-02-10] MEDS: sodium chloride 0.9% 250 ML 75 ML IV (14:12)
== END 2021-02-10 13:53 | disposition home or self-care (01) ==
LOC: ONCMED 13:53
PROVIDERS: PCP Emergency Medicine Emergency Medical Services; Visit Provider Internal Medicine Medical Oncology
DX: Z51.11 Encounter for antineoplastic chemotherapy (principal); I78.0 Hereditary hemorrhagic telangiectasia; D50.9 Iron deficiency anemia, unspecified
CPT/HCPCS: 96413; J7050; J9035

== ENCOUNTER 2021-04-28 14:01 | Outpatient (CLI) | payer OTHER, SELFPAY ==
[2021-04-28 14:37] LABS: Basophils # 0.1 10^3/uL (0.0-0.1); Basophils % 1.1 %; Eosinophils # 0.5 10^3/uL (0.0-0.8); Eosinophils % 7.4 %; Hematocrit 29.2 % (42.0-52.0); Hemoglobin 9.4 g/dL (11.7-16.6); Lymphocytes % 16.2 %; Mean Corpuscular HGB Conc 32.2 g/dL (30.0-36.0); Mean Corpuscular Hemoglobin 32.9 pg (28.0-34.0); Mean Corpuscular Volume 102.1 fL (80-94); Mean Platelet Volume 10.1 fL (7.4-10.4); Monocytes # 0.6 10^3/uL (0.2-0.9); Neutrophils # 4.03 10^3/uL (1.8-7.7); Neutrophils % 65.1 %; Nucleated Red Blood Cells % 0 %; Platelet Count 197 10^3/cmm (130-400); Red Blood Count 2.86 10^6/uL (4.1-5.3); Red Cell Distribution Width 15.2 % (12.1-15.1); White Blood Count 6.2 10^3/uL (4.0-10.0)
[2021-04-28 14:52] LABS: Alanine Aminotransferase 10 U/L (0-41); Albumin Level 3.5 g/dL (3.5-5.2); Alkaline Phosphatase 70 IU/L (40-130); Anion Gap 14.5 (5-19); Aspartate Amino Transferase 37 U/L (0-40); Blood Urea Nitrogen 16 mg/dL (8-23); Calcium 8.1 mg/dL (8.5-10.5); Carbon Dioxide 21 mmol/L (22-29); Chloride 108 mmol/L (98-107); Globulin 2.7 g/dL (1.3-4.6); Glucose 79 mg/dL (65-115); Iron 286 ug/dL (59-158); Osmolality Calculated 288 mOsm/kg (285-295); Potassium 4.5 mmol/L (3.5-5.1); Sodium 139 mmol/L (136-145); Total Bilirubin 0.3 mg/dL (0.15-1.2); Total Protein 6.2 g/dL (6.6-8.7)
[2021-04-28 15:19] LABS: Percent Saturation 94.3 % (20-50); Total Iron Binding Capacity 303 mcg/dl; Unsaturated Iron Binding < 17 ug/dL (112-347)
== END 2021-04-28 14:02 | disposition home or self-care (01) ==
PROVIDERS: PCP Emergency Medicine Emergency Medical Services; Visit Provider Internal Medicine Medical Oncology
DX: I78.0 Hereditary hemorrhagic telangiectasia (principal); D50.9 Iron deficiency anemia, unspecified; Z79.899 Other long term (current) drug therapy
CPT/HCPCS: 36415; 80053; 83540; 83550; 85025

== ENCOUNTER 2021-04-30 05:54 | Outpatient (CLI) | payer OTHER, SELFPAY ==
[2021-04-30] MEDS: sodium chloride 0.9% 250 ML 75 ML IV (10:15)
[2021-04-30 10:53] LABS: Ferritin 53 ng/mL (30-400); Iron 28 ug/dL (59-158); Percent Saturation 10.4 % (20-50); Total Iron Binding Capacity 268 mcg/dl; Unsaturated Iron Binding 240 ug/dL (112-347)
--- NOTE | 2021-05-03 10:15 | ONC FU_ITS ---
Dr. 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 He has associated iron deficiency anemia from chronic blood loss. He was initially seen here by Dr. Camacho on 01/20/2017. He had a history of chronic, iron dependent anemia, beginning 35 years earlier with the discovery of a bleeding ulcer. He had gone off of his iron 8 years earlier at the suggestion of his PCP, but he very quickly needed a blood transfusion 3 weeks later . He then continued on oral iron as well as oral B12 every day. He also reported a 40-year history of having frequent nosebleeds, almost daily. [facility] diagnosis of hereditary hemorrhagic telangiectasias. His recent hemoglobin with Dr. Orlando had been low at 9.1 g. His laboratory studies at that time included CBC showing hemoglobin 10.2 g, white blood cell count 5400 and platelet count 245,000. The red cell indices were normal. The uncorrected reticulocyte count was 3.6%. Haptoglobin was normal at 227 mg/dL with total bilirubin normal at 0.3 mg/dL and LDH normal at 153 U/L. His B12 and folate levels were both normal, as was the methylmalonic acid level. Ferritin was low at 19.2 ng/mL. He was given parenteral iron replacement with infusions of Injectafer on 02/02/2017 and on 02/09/2017. He tolerated it well. On his follow-up visit on 03/10/2017 his hemoglobin was basically unchanged at 10.3 g. Serum iron was still low at 33 mcg/dL with transferrin saturation 9.5%. Ferritin had come up to 84 ng/mL compared to 19 ng from milliliter on 01/20/2017. He was given additional infusions of Injectafer on 03/10/2017 and on 03/17/2017. His follow-up CBC on 04/14/2017 still showed mild anemia with hemoglobin 10.6 g. The serum iron studies still showed low transferrin saturation of 12%. The ferritin was up to 117 ng/mL. He failed to return for further follow-up. On 02/13/2018 he was admitted to the hospital after presenting to the emergency room with recurrent anemia, hemoglobin 7.4 g. He was transfused with 2 units of packed red blood cells. EGD showed multiple gastric AVMs which were treated with either clipping and/or cautery. He was then back in the emergency room on 02/23/2018 with hemoglobin 7.3 g, and he received another 2 units of packed red blood cells. I had seen him for a follow-up visit on 03/02/2018. His hemoglobin was still only 8.7 g with transferrin saturation low at 15.7% and ferritin low at 22 ng/mL. He was then given additional parenteral iron replacement with infusions of Injectafer on 03/13/2018 and 03/21/2018. Despite the iron infusions, as of his follow-up visit on 04/20/2018 his hemoglobin was back down to 7.5 g with transferrin saturation 15.9%. He was transfused 2 units of packed red blood cells and he was given additional infusions of Injectafer on 04/20/2018 and on 04/27/2018. As of 05/04/2018 his hemoglobin had further decline to 6.3 g with white blood cell count 4400 and platelet count 192,000. The red cell indices were macrocytic, MCV 113 and MCH 36. The uncorrected reticulocyte count was 14.4%. Haptoglobin was low at 27.1 mg/dL with LDH normal at 231 U/L. He was given a transfusion of 3 units of PRBC on 05/05/2018. He required further transfusions of 2 units of PRBC on 05/12/2018 and again on 05/23/2018. He underwent bone marrow aspiration/biopsy on 05/18/2018. The marrow was hypercellular, estimated at 80-90%. There was erythroid hyperplasia. There was limited megakaryocyte dyspoiesis and limited dyserythropoiesis. There was just scant storage iron. There was no evidence of an infiltrative process. Flow cytometry showed no aberrant myeloid or lymphoid populations, and a FISH panel for MDS was unrevealing. 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 The remainder showed normal chromosome complement. With those findings and with recurrent iron deficiency despite repeated infusions of parenteral iron, he was referred to [facility] for a second opinion evaluation. He was seen there in November 2018, and he subsequently began a trial of therapy with tranexamic acid. 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 Despite that, he required blood transfusions again on 01/18/2019, on 01/22/2019, on 02/05/2019, on 02/12/2019, and on 02/19/2019. 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 With that finding, we were able to get approval for a trial of therapy with a Avastin. He received his initial infusion of a Avastin at the 5 mg/kg dosage on 02/19/2019. He tolerated it well. As of 03/01/2019 his hemoglobin was adequate at 10.8 g. He then continued the Avastin at 2-week intervals. During that time he experienced a gradual increase in his hemoglobin/hematocrit levels. As of 08/22/2019 he received his 10th infusion of a Avastin. His hemoglobin was stable at 13.2 g, and we opted to try stopping his treatment. As of his follow-up visit on 11/22/2019 his hemoglobin had decreased to 9.6 g. His transferrin saturation was low at 13.6%, consistent with recurrent iron deficiency. He was then given parenteral iron replacement with 2 infusions of Injectafer. As of 12/05/2019, hemoglobin remained stable at 9.5 g, and at that point he restarted Avastin at 5 mg/kg by IV infusion every 2 weeks. As of 01/02/2020 his hemoglobin had increased to 11.3 g. His transferrin saturation, though, was low again at 4.7%, and he was given further parenteral iron replacement with 2 additional infusions of Injectafer. He continued treatment with Avastin every 2 weeks with his hemoglobin stabilizing in the range of 11 to 12 g. As of March 2020 the interval of his Avastin infusions was increased to 4 weeks. His medical history is otherwise unremarkable. He reports no other medical illnesses. His most recent colonoscopy was in 2007. He is a nonsmoker. INTERIM HISTORY: I had seen him for a follow-up visit on 01/13/2021. At that point, he had made plans to move to [place]. He received his last infusion of Avastin on 02/10/2021. I had made arrangements for him to continue treatment with the software technician in [place]. He returns for a follow-up visit, having called recently requesting to be seen here again. His move to [place] did not work out well for him. He and his now are planning to move to [place] instead, but in the meantime, he does want to resume his treatments. He has noticed a decrease in his stamina, though he is still able to do some light work. He has good appetite. He has no fever or night sweats. He has some allergy related sinus symptoms and he tends to have a morning cough. He does not complain of shortness of breath or chest pain. He has no GI or complaints. In particular, he has not been aware of any obvious blood in the stool. He does have some joint pain, mainly in his hands. He does not complain of headache or dizziness, and he has no focal neurologic symptoms. Medications: Benadryl Allergy 1 Tablet (of 25 mg) Oral at bedtime PRN, C 1000 1 Tablet (of 1000 mg) Oral daily, Cholecalciferol 1 Capsule (of 10 mcg ) Oral daily, Ferrous Sulfate 2 (325 (65 fe) mg) Tablet Oral daily Allergies: No Known Allergies. Vital Signs: Performed on Apr 30, 2021 09:08 Height - 70.00 in Weight - 160 lbs (LOW) BSA - 1.90 sq.m BMI - 22.96 Temperature - 97.8 F (LOW) Pulse - 70 /min Respiration - 18 /min BP - 154/66 mm(hg) (HIGH) O2 Sat - 99 % Pain - 0 Fatigue - 3 Physical Examination: Constitutional - He looks pretty good generally, Eyes - Sclerae nonicteric. Conjunctivae clear, ENMT - There are no lesions noted in the oral cavity, Hematologic/Lymphatic - No cervical, clavicular, or axillary adenopathy, Respiratory - Lungs are clear with diminished air movement bilaterally, Cardiovascular - Heart rhythm is regular. There is a II/ systolic murmur. There is no gallop or rub noted, Abdomen - Soft. Liver and spleen are not enlarged. There is no abdominal mass or ascites noted and there is no inguinal adenopathy, Extremities - Slight edema, Integumentary - There are scattered telangiectasia in the facial area, Neurologic - No focal neurologic deficits noted. Lab/Imaging: Test performed on Apr 30, 2021 10:15 Ferritin 53 ng/mL Iron 28 mcg/dL Iron Binding Capacity (TIBC) 268 mcg/dl % Iron Saturation 10.4 % UIBC 240 mcg/dL Test performed on Apr 28, 2021 14:15 Sodium 139 mmol/L Potassium 4.5 mmol/L Chloride 108 mmol/L CO2 21 mmol/L Anion Gap 14.5 BUN 16 mg/dL Creatinine 0.8 mg/dL Cr Clearance (Est) 70.7700 mL/min Glucose 79 mg/dL Osmolality - Calculated 288 mOsm/kg Calcium 8.1 mg/dL Protein, Total 6.2 g/dL Albumin 3.5 g/dL Globulin 2.7 g/dL Bilirubin, Total 0.3 mg/dL ALT (SGPT) 10 U/L AST (SGOT) 37 U/L Alkaline Phosphatase 70 IU/L WBC 6.2 10 3/uL RBC 2.86 10 6/uL HGB 9.4 g/dL HCT 29.2 % MCV 102.1 fL MCH 32.9 pg MCHC 32.2 g/dL RDW 15.2 % Platelet Count 197 10 3/cmm MPV 10.1 fL Neutrophils 4.03 10 3/uL Lymphocytes 1.0 10 3/uL Monocytes 0.6 10 3/uL Eosinophils 0.5 10 3/uL Basophils 0.1 10 3/uL Neutrophil % 65.1 % Lymphocyte % 16.2 % Monocyte % 10.0 % Eosinophil % 7.4 % Basophils % 1.1 % NRBC % 0 % Problem List: 1. 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 2. He has had iron deficiency anemia associated with chronic blood loss, which has included epistaxis and GI blood loss. Problems Addressed with this Encounter and Plan: 1. Patient with hereditary hemorrhagic telangiectasia. He has had iron deficiency anemia associated with chronic blood loss, which has included epistaxis and GI blood loss. He has been followed here since December 2016. During subsequent follow-up he required parenteral iron replacement on multiple occasions, and he received multiple transfusions of PRBC. He underwent EGD for acute GI bleeding on 02/15/2018. He was noted to have multiple AVMs in the gastric body. There were associated stigmata of bleeding, and he was treated with clipping and/or cautery. In November 2018 he was seen at [facility] for a second opinion evaluation. He began a trial therapy with tranexamic acid, but with no apparent benefit. 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 Despite that, he continued to require transfusion on a pretty much weekly basis. In January 2019 he began a trial of therapy with Avastin 5 mg/kg by IV infusion, initially administered at 2-week intervals. He had a very good clinical response with complete transfusion independence. As of 08/22/2019 he had completed his 10th infusion of Avastin. His hemoglobin was stable at 13.2 g, and at that point we opted to try stopping his treatment. As of 11/22/2019 his hemoglobin had dropped back down to 9.6 g with transferrin saturation low at 13.6%, consistent with iron deficiency. He was given parenteral iron replacement with 2 infusions of Injectafer, to which he did not show a significant response. As of 12/05/2019 he restarted treatment with Avastin 5 mg/kg by IV every 2 weeks. In December 2019 he did receive additional parenteral iron replacement with Injectafer, and he continued the Avastin infusions every 2 weeks. His hemoglobin then stabilized in the range of 11 to 12 g. As of March 2020 the interval of his Avastin infusions was increased to 4 weeks. During subsequent follow-up his hemoglobin/hematocrit levels had remained stable, and he has been stable clinically. Following his Avastin infusion on 02/10/2021, he had moved to [place]. That move, however, did not work out for him. As such, he has not been able to continue his treatment, and he is now mildly anemic again. As such, he will restart his Avastin at 5 mg/kg by IV infusion. It will be administered every 2 weeks for the first month, and I will then try and get him back on an every 4-week schedule. 2. His mildly anemic again with transferrin saturation and serum ferritin level consistent with iron deficiency. He will also be scheduled now to have further parenteral iron replacement with 2 infusions of Injectafer. Signed By: Jalil Olmos M.D. <<Signature on File>>
== END 2021-04-30 05:55 | disposition home or self-care (01) ==
LOC: ONCMED 05:57
PROVIDERS: PCP Emergency Medicine Emergency Medical Services; Visit Provider Internal Medicine Medical Oncology
DX: Z51.11 Encounter for antineoplastic chemotherapy (principal); I78.0 Hereditary hemorrhagic telangiectasia; D50.0 Iron deficiency anemia secondary to blood loss (chronic); R04.0 Epistaxis; Z79.899 Other long term (current) drug therapy
CPT/HCPCS: 36415; 82728; 83540; 83550; 96413; 99214; J7050; J9035

== ENCOUNTER 2021-05-14 06:15 | Outpatient (CLI) | payer OTHER, MEDICARE, SELFPAY ==
[2021-05-14 11:25] LABS: Basophils # 0.1 10^3/uL (0.0-0.1); Basophils % 1.4 %; Eosinophils # 0.4 10^3/uL (0.0-0.8); Hematocrit 29.2 % (42.0-52.0); Lymphocytes # 0.8 10^3/uL (0.8-4.8); Lymphocytes % 18.9 %; Mean Corpuscular HGB Conc 30.8 g/dL (30.0-36.0); Mean Corpuscular Hemoglobin 30.8 pg (28.0-34.0); Mean Platelet Volume 10.3 fL (7.4-10.4); Monocytes # 0.5 10^3/uL (0.2-0.9); Monocytes % 11.1 %; Neutrophils # 2.53 10^3/uL (1.8-7.7); Neutrophils % 59.6 %; Nucleated Red Blood Cells % 0 %; Platelet Count 191 10^3/cmm (130-400); Red Blood Count 2.92 10^6/uL (4.1-5.3); Red Cell Distribution Width 14.2 % (12.1-15.1); White Blood Count 4.2 10^3/uL (4.0-10.0)
[2021-05-14] MEDS: ferric carboxy (IVPB) 750 MG in sodium chloride 0.9% (100 ml) 100 ML 460 MG IV (11:28)
[2021-05-14 11:48] LABS: Alanine Aminotransferase 11 U/L (0-41); Albumin Level 3.7 g/dL (3.5-5.2); Alkaline Phosphatase 80 IU/L (40-130); Anion Gap 14.4 (5-19); Aspartate Amino Transferase 38 U/L (0-40); Blood Urea Nitrogen 10 mg/dL (8-23); Calcium 8.4 mg/dL (8.5-10.5); Carbon Dioxide 22 mmol/L (22-29); Chloride 107 mmol/L (98-107); Globulin 2.9 g/dL (1.3-4.6); Glucose 90 mg/dL (65-115); Osmolality Calculated 287 mOsm/kg (285-295); Potassium 4.4 mmol/L (3.5-5.1); Sodium 139 mmol/L (136-145); Total Bilirubin 0.4 mg/dL (0.15-1.2); Total Protein 6.6 g/dL (6.6-8.7)
== END 2021-05-14 06:16 | disposition home or self-care (01) ==
LOC: ONCMED 06:20
PROVIDERS: PCP Emergency Medicine Emergency Medical Services; Visit Provider Nurse Practitioner
DX: Z51.11 Encounter for antineoplastic chemotherapy (principal); I78.0 Hereditary hemorrhagic telangiectasia; D50.0 Iron deficiency anemia secondary to blood loss (chronic)
CPT/HCPCS: 36415; 80053; 85025; 96367; 96413; J1439; J9035

== ENCOUNTER 2021-06-01 06:03 | Outpatient (CLI) | payer OTHER, MEDICARE, SELFPAY ==
[2021-06-01 08:52] LABS: Basophils # 0.1 10^3/uL (0.0-0.1); Basophils % 1.2 %; Eosinophils # 0.6 10^3/uL (0.0-0.8); Eosinophils % 14.8 %; Hematocrit 34.1 % (42.0-52.0); Hemoglobin 10.7 g/dL (11.7-16.6); Lymphocytes # 0.8 10^3/uL (0.8-4.8); Lymphocytes % 18.7 %; Mean Corpuscular HGB Conc 31.4 g/dL (30.0-36.0); Mean Corpuscular Hemoglobin 31.8 pg (28.0-34.0); Mean Corpuscular Volume 101.5 fL (80-94); Mean Platelet Volume 10.7 fL (7.4-10.4); Monocytes # 0.6 10^3/uL (0.2-0.9); Monocytes % 15.1 %; Neutrophils # 2.09 10^3/uL (1.8-7.7); Nucleated Red Blood Cells % 0 %; Platelet Count 123 10^3/cmm (130-400); Red Blood Count 3.36 10^6/uL (4.1-5.3); Red Cell Distribution Width 16.7 % (12.1-15.1); White Blood Count 4.2 10^3/uL (4.0-10.0)
[2021-06-01 09:07] LABS: Alanine Aminotransferase 9 U/L (0-41); Albumin Level 3.6 g/dL (3.5-5.2); Alkaline Phosphatase 86 IU/L (40-130); Anion Gap 15.2 (5-19); Aspartate Amino Transferase 41 U/L (0-40); Blood Urea Nitrogen 9 mg/dL (8-23); Calcium 8.1 mg/dL (8.5-10.5); Carbon Dioxide 22 mmol/L (22-29); Chloride 110 mmol/L (98-107); Ferritin 276 ng/mL (30-400); Glucose 72 mg/dL (65-115); Iron 34 ug/dL (59-158); Osmolality Calculated 293 mOsm/kg (285-295); Potassium 4.2 mmol/L (3.5-5.1); Sodium 143 mmol/L (136-145); Total Bilirubin 0.3 mg/dL (0.15-1.2); Total Iron Binding Capacity 226 mcg/dl; Total Protein 6.6 g/dL (6.6-8.7); Unsaturated Iron Binding 192 ug/dL (112-347)
[2021-06-01] MEDS: ferric carboxy (IVPB) 750 MG in sodium chloride 0.9% (100 ml) 100 ML 460 MG IV (10:15)
--- NOTE | 2021-06-01 18:58 | ONC FU_ITS ---
Dr. 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 He has associated iron deficiency anemia from chronic blood loss. He was initially seen here by Dr. Camacho on 01/20/2017. He had a history of chronic, iron dependent anemia, beginning 35 years earlier with the discovery of a bleeding ulcer. He had gone off of his iron 8 years earlier at the suggestion of his PCP, but he very quickly needed a blood transfusion 3 weeks later . He then continued on oral iron as well as oral B12 every day. He also reported a 40-year history of having frequent nosebleeds, almost daily. [facility] diagnosis of hereditary hemorrhagic telangiectasias. His recent hemoglobin with Dr. Orlando had been low at 9.1 g. His laboratory studies at that time included CBC showing hemoglobin 10.2 g, white blood cell count 5400 and platelet count 245,000. The red cell indices were normal. The uncorrected reticulocyte count was 3.6%. Haptoglobin was normal at 227 mg/dL with total bilirubin normal at 0.3 mg/dL and LDH normal at 153 U/L. His B12 and folate levels were both normal, as was the methylmalonic acid level. Ferritin was low at 19.2 ng/mL. He was given parenteral iron replacement with infusions of Injectafer on 02/02/2017 and on 02/09/2017. He tolerated it well. On his follow-up visit on 03/10/2017 his hemoglobin was basically unchanged at 10.3 g. Serum iron was still low at 33 mcg/dL with transferrin saturation 9.5%. Ferritin had come up to 84 ng/mL compared to 19 ng from milliliter on 01/20/2017. He was given additional infusions of Injectafer on 03/10/2017 and on 03/17/2017. His follow-up CBC on 04/14/2017 still showed mild anemia with hemoglobin 10.6 g. The serum iron studies still showed low transferrin saturation of 12%. The ferritin was up to 117 ng/mL. He failed to return for further follow-up. On 02/13/2018 he was admitted to the hospital after presenting to the emergency room with recurrent anemia, hemoglobin 7.4 g. He was transfused with 2 units of packed red blood cells. EGD showed multiple gastric AVMs which were treated with either clipping and/or cautery. He was then back in the emergency room on 02/23/2018 with hemoglobin 7.3 g, and he received another 2 units of packed red blood cells. I had seen him for a follow-up visit on 03/02/2018. His hemoglobin was still only 8.7 g with transferrin saturation low at 15.7% and ferritin low at 22 ng/mL. He was then given additional parenteral iron replacement with infusions of Injectafer on 03/13/2018 and 03/21/2018. Despite the iron infusions, as of his follow-up visit on 04/20/2018 his hemoglobin was back down to 7.5 g with transferrin saturation 15.9%. He was transfused 2 units of packed red blood cells and he was given additional infusions of Injectafer on 04/20/2018 and on 04/27/2018. As of 05/04/2018 his hemoglobin had further decline to 6.3 g with white blood cell count 4400 and platelet count 192,000. The red cell indices were macrocytic, MCV 113 and MCH 36. The uncorrected reticulocyte count was 14.4%. Haptoglobin was low at 27.1 mg/dL with LDH normal at 231 U/L. He was given a transfusion of 3 units of PRBC on 05/05/2018. He required further transfusions of 2 units of PRBC on 05/12/2018 and again on 05/23/2018. He underwent bone marrow aspiration/biopsy on 05/18/2018. The marrow was hypercellular, estimated at 80-90%. There was erythroid hyperplasia. There was limited megakaryocyte dyspoiesis and limited dyserythropoiesis. There was just scant storage iron. There was no evidence of an infiltrative process. Flow cytometry showed no aberrant myeloid or lymphoid populations, and a FISH panel for MDS was unrevealing. 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 The remainder showed normal chromosome complement. With those findings and with recurrent iron deficiency despite repeated infusions of parenteral iron, he was referred to [facility] for a second opinion evaluation. He was seen there in November 2018, and he subsequently began a trial of therapy with tranexamic acid. 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 Despite that, he required blood transfusions again on 01/18/2019, on 01/22/2019, on 02/05/2019, on 02/12/2019, and on 02/19/2019. 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 With that finding, we were able to get approval for a trial of therapy with a Avastin. He received his initial infusion of a Avastin at the 5 mg/kg dosage on 02/19/2019. He tolerated it well. As of 03/01/2019 his hemoglobin was adequate at 10.8 g. He then continued the Avastin at 2-week intervals. During that time he experienced a gradual increase in his hemoglobin/hematocrit levels. As of 08/22/2019 he received his 10th infusion of a Avastin. His hemoglobin was stable at 13.2 g, and we opted to try stopping his treatment. As of his follow-up visit on 11/22/2019 his hemoglobin had decreased to 9.6 g. His transferrin saturation was low at 13.6%, consistent with recurrent iron deficiency. He was then given parenteral iron replacement with 2 infusions of Injectafer. As of 12/05/2019, hemoglobin remained stable at 9.5 g, and at that point he restarted Avastin at 5 mg/kg by IV infusion every 2 weeks. As of 01/02/2020 his hemoglobin had increased to 11.3 g. His transferrin saturation, though, was low again at 4.7%, and he was given further parenteral iron replacement with 2 additional infusions of Injectafer. He continued treatment with Avastin every 2 weeks with his hemoglobin stabilizing in the range of 11 to 12 g. As of March 2020 the interval of his Avastin infusions was increased to 4 weeks. His medical history is otherwise unremarkable. He reports no other medical illnesses. His most recent colonoscopy was in 2007. He is a nonsmoker. INTERIM HISTORY: I had seen him for a follow-up visit on 01/13/2021. At that point, he had made plans to move to [place]. He received his last infusion of Avastin on 02/10/2021. I had made arrangements for him to continue treatment with the mechanical engineering advisor in [place]. He was then seen back here on 04/30/2021, as his plans in [place] had not worked out as expected. He then returned here for follow-up on 04/30/2021. His CBC 2 days earlier showed that his hemoglobin had dropped to 9.4 g. His subsequent serum iron studies show transferrin saturation low at 10.4%, consistent with iron deficiency. He restarted his treatment with bevacizumab 5 mg/kg by IV infusion. He return for treatment at a two-week interval, and at that time, he also was given an infusion of Injectafer for the iron deficiency. He is seen for a follow-up visit. He has been feeling better since the iron infusion 2 weeks ago. He has more energy. His ECOG score is one. He has good appetite. He has no fever or night sweats. He has had bad sinus drainage for the past 2 days. He has not had epistaxis. He has some cough with the drainage. He does not complain of shortness of breath or chest pain. He has no GI complaints. In particular, he has not been aware of any blood in the stool. He has frequent urination. He has arthritis pain, which is unchanged. He has had headache off and on. He has no focal neurologic symptoms. Medications: Benadryl Allergy 1 Tablet (of 25 mg) Oral at bedtime PRN, C 1000 1 Tablet (of 1000 mg) Oral daily, Cholecalciferol 1 Capsule (of 10 mcg ) Oral daily, Ferrous Sulfate 2 (325 (65 fe) mg) Tablet Oral daily Allergies: No Known Allergies. Vital Signs: Performed on Jun 01, 2021 09:35 Height - 70.00 in Weight - 163.8 lbs (HIGH) BSA - 1.92 sq.m BMI - 23.50 Temperature - 989.9 F (HIGH) Pulse - 79 /min Respiration - 18 /min BP - 166/74 mm(hg) (HIGH) O2 Sat - 98 % Pain - 0 Fatigue - 4 Physical Examination: Constitutional - He looks pretty good generally, Eyes - Sclerae nonicteric. Conjunctivae clear, ENMT - No lesions noted in the oral cavity, Hematologic/Lymphatic - No cervical, clavicular, or axillary adenopathy, Respiratory - Lungs are clear with diminished air movement bilaterally, Cardiovascular - Heart rhythm is regular. There is a II/ systolic murmur. There is no gallop or rub noted, Abdomen - Soft. Liver and spleen are not enlarged. There is no abdominal mass or ascites noted and there is no inguinal adenopathy, Extremities - Slight edema, Integumentary - There are multiple telangiectasia in the facial area, Neurologic - No focal neurologic deficits noted. Lab/Imaging: Test performed on Jun 01, 2021 08:14 Ferritin 276 ng/mL Iron 34 mcg/dL Sodium 143 mmol/L Iron Binding Capacity (TIBC) 226 mcg/dl Potassium 4.2 mmol/L % Iron Saturation 15.0 % Chloride 110 mmol/L CO2 22 mmol/L UIBC 192 mcg/dL Anion Gap 15.2 BUN 9 mg/dL Creatinine 0.7 mg/dL Cr Clearance (Est) 80.8800 mL/min Glucose 72 mg/dL Osmolality - Calculated 293 mOsm/kg Calcium 8.1 mg/dL Protein, Total 6.6 g/dL Albumin 3.6 g/dL Globulin 3.0 g/dL Bilirubin, Total 0.3 mg/dL ALT (SGPT) 9 U/L AST (SGOT) 41 U/L Alkaline Phosphatase 86 IU/L WBC 4.2 10 3/uL RBC 3.36 10 6/uL HGB 10.7 g/dL HCT 34.1 % MCV 101.5 fL MCH 31.8 pg MCHC 31.4 g/dL RDW 16.7 % Platelet Count 123 10 3/cmm MPV 10.7 fL Neutrophils 2.09 10 3/uL Lymphocytes 0.8 10 3/uL Monocytes 0.6 10 3/uL Eosinophils 0.6 10 3/uL Basophils 0.1 10 3/uL Neutrophil % 50.0 % Lymphocyte % 18.7 % Monocyte % 15.1 % Eosinophil % 14.8 % Basophils % 1.2 % NRBC % 0 % Problem List: 1. 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 2. He has had iron deficiency anemia associated with chronic blood loss, which has included epistaxis and GI blood loss. Problems Addressed with this Encounter and Plan: 1. Patient with hereditary hemorrhagic telangiectasia. He has had iron deficiency anemia associated with chronic blood loss, which has included epistaxis and GI blood loss. He has been followed here since December 2016. During subsequent follow-up he required parenteral iron replacement on multiple occasions, and he received multiple transfusions of PRBC. He underwent EGD for acute GI bleeding on 02/15/2018. He was noted to have multiple AVMs in the gastric body. There were associated stigmata of bleeding, and he was treated with clipping and/or cautery. In November 2018 he was seen at [facility] for a second opinion evaluation. He began a trial therapy with tranexamic acid, but with no apparent benefit. 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 Despite that, he continued to require transfusion on a pretty much weekly basis. In January 2019 he began a trial of therapy with Avastin 5 mg/kg by IV infusion, initially administered at 2-week intervals. He had a very good clinical response with complete transfusion independence. As of 08/22/2019 he had completed his 10th infusion of Avastin. His hemoglobin was stable at 13.2 g, and at that point we opted to try stopping his treatment. As of 11/22/2019 his hemoglobin had dropped back down to 9.6 g with transferrin saturation low at 13.6%, consistent with iron deficiency. He was given parenteral iron replacement with 2 infusions of Injectafer, to which he did not show a significant response. As of 12/05/2019 he restarted treatment with Avastin 5 mg/kg by IV every 2 weeks. In December 2019 he did receive additional parenteral iron replacement with Injectafer, and he continued the Avastin infusions every 2 weeks. His hemoglobin then stabilized in the range of 11 to 12 g. As of March 2020 the interval of his Avastin infusions was increased to 4 weeks. During subsequent follow-up his hemoglobin/hematocrit levels had remained stable, and he has been stable clinically. Following his Avastin infusion on 02/10/2021, he had moved to [place]. That move, however, did not work out for him. As such, he has not been able to continue his treatment, and he is now mildly anemic again. As such, he will restart his Avastin at 5 mg/kg by IV infusion. It has been administered every 2 weeks for one month. He will be given IV bevacizumab again today at the same dosage, and his treatment will now be repeated at four-week intervals. 2. He has associated iron deficiency anemia. He received an infusion of Injectafer 2 weeks ago. He has had some response, but he remains mildly anemic. He will be given his 2nd infusion of Injectafer today. His serum iron studies will be repeated in 1 month. Signed By: Jalil Olmos M.D. <<Signature on File>>
== END 2021-06-01 06:04 | disposition home or self-care (01) ==
LOC: ONCMED 06:05
PROVIDERS: PCP Emergency Medicine Emergency Medical Services; Visit Provider Internal Medicine Medical Oncology
DX: Z51.11 Encounter for antineoplastic chemotherapy (principal); I78.0 Hereditary hemorrhagic telangiectasia; D50.0 Iron deficiency anemia secondary to blood loss (chronic); R04.0 Epistaxis; Z79.899 Other long term (current) drug therapy
CPT/HCPCS: 80053; 82728; 83540; 83550; 85025; 96367; 96413; 99214; J1439; J9035

== ENCOUNTER 2021-06-30 08:00 | Outpatient (CLI) | payer OTHER, MEDICARE, SELFPAY ==
[2021-06-30 08:51] LABS: Basophils # 0.1 10^3/uL (0.0-0.1); Basophils % 1.3 %; Eosinophils # 0.4 10^3/uL (0.0-0.8); Eosinophils % 7.4 %; Hematocrit 40.4 % (42.0-52.0); Hemoglobin 12.7 g/dL (11.7-16.6); Lymphocytes # 1.1 10^3/uL (0.8-4.8); Lymphocytes % 19.8 %; Mean Corpuscular HGB Conc 31.4 g/dL (30.0-36.0); Mean Corpuscular Hemoglobin 32.2 pg (28.0-34.0); Mean Corpuscular Volume 102.5 fl (80-94); Mean Platelet Volume 10.8 fL (7.4-10.4); Monocytes # 0.8 10^3/uL (0.2-0.9); Monocytes % 13.5 %; Neutrophils # 3.22 10^3/uL (1.8-7.7); Nucleated Red Blood Cells % 0 %; Platelet Count 144 10^3/cmm (130-400); Red Blood Count 3.94 10^6/uL (4.1-5.3); Red Cell Distribution Width 15.8 % (12.1-15.1); White Blood Count 5.6 10^3/uL (4.0-10.0)
[2021-06-30 09:29] LABS: Alanine Aminotransferase 12 U/L (0-41); Albumin Level 3.6 g/dL (3.5-5.2); Alkaline Phosphatase 90 IU/L (40-130); Anion Gap 11.1 (5-19); Aspartate Amino Transferase 48 U/L (0-40); Blood Urea Nitrogen 9 mg/dL (8-23); Calcium 8.3 mg/dL (8.5-10.5); Carbon Dioxide 24 mmol/L (22-29); Chloride 108 mmol/L (98-107); Ferritin 345 ng/mL (30-400); Globulin 3.2 g/dL (1.3-4.6); Glucose 75 mg/dL (65-115); Iron 61 ug/dL (59-158); Osmolality Calculated 285 mOsm/kg (285-295); Percent Saturation 29.9 % (20-50); Potassium 4.1 mmol/L (3.5-5.1); Sodium 139 mmol/L (136-145); Total Bilirubin 0.3 mg/dL (0.15-1.2); Total Iron Binding Capacity 204 mcg/dl; Total Protein 6.8 g/dL (6.6-8.7); Unsaturated Iron Binding 143 ug/dL (112-347)
[2021-06-30] MEDS: sodium chloride 0.9% 250 ML 75 ML IV (10:20)
--- NOTE | 2021-06-30 14:17 | ONC FU_ITS ---
Dr. 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 He has associated iron deficiency anemia from chronic blood loss. He was initially seen here by Dr. Camacho on 01/20/2017. He had a history of chronic, iron dependent anemia, beginning 35 years earlier with the discovery of a bleeding ulcer. He had gone off of his iron 8 years earlier at the suggestion of his PCP, but he very quickly needed a blood transfusion 3 weeks later . He then continued on oral iron as well as oral B12 every day. He also reported a 40-year history of having frequent nosebleeds, almost daily. [facility] diagnosis of hereditary hemorrhagic telangiectasias. His recent hemoglobin with Dr. Orlando had been low at 9.1 g. His laboratory studies at that time included CBC showing hemoglobin 10.2 g, white blood cell count 5400 and platelet count 245,000. The red cell indices were normal. The uncorrected reticulocyte count was 3.6%. Haptoglobin was normal at 227 mg/dL with total bilirubin normal at 0.3 mg/dL and LDH normal at 153 U/L. His B12 and folate levels were both normal, as was the methylmalonic acid level. Ferritin was low at 19.2 ng/mL. He was given parenteral iron replacement with infusions of Injectafer on 02/02/2017 and on 02/09/2017. He tolerated it well. On his follow-up visit on 03/10/2017 his hemoglobin was basically unchanged at 10.3 g. Serum iron was still low at 33 mcg/dL with transferrin saturation 9.5%. Ferritin had come up to 84 ng/mL compared to 19 ng from milliliter on 01/20/2017. He was given additional infusions of Injectafer on 03/10/2017 and on 03/17/2017. His follow-up CBC on 04/14/2017 still showed mild anemia with hemoglobin 10.6 g. The serum iron studies still showed low transferrin saturation of 12%. The ferritin was up to 117 ng/mL. He failed to return for further follow-up. On 02/13/2018 he was admitted to the hospital after presenting to the emergency room with recurrent anemia, hemoglobin 7.4 g. He was transfused with 2 units of packed red blood cells. EGD showed multiple gastric AVMs which were treated with either clipping and/or cautery. He was then back in the emergency room on 02/23/2018 with hemoglobin 7.3 g, and he received another 2 units of packed red blood cells. I had seen him for a follow-up visit on 03/02/2018. His hemoglobin was still only 8.7 g with transferrin saturation low at 15.7% and ferritin low at 22 ng/mL. He was then given additional parenteral iron replacement with infusions of Injectafer on 03/13/2018 and 03/21/2018. Despite the iron infusions, as of his follow-up visit on 04/20/2018 his hemoglobin was back down to 7.5 g with transferrin saturation 15.9%. He was transfused 2 units of packed red blood cells and he was given additional infusions of Injectafer on 04/20/2018 and on 04/27/2018. As of 05/04/2018 his hemoglobin had further decline to 6.3 g with white blood cell count 4400 and platelet count 192,000. The red cell indices were macrocytic, MCV 113 and MCH 36. The uncorrected reticulocyte count was 14.4%. Haptoglobin was low at 27.1 mg/dL with LDH normal at 231 U/L. He was given a transfusion of 3 units of PRBC on 05/05/2018. He required further transfusions of 2 units of PRBC on 05/12/2018 and again on 05/23/2018. He underwent bone marrow aspiration/biopsy on 05/18/2018. The marrow was hypercellular, estimated at 80-90%. There was erythroid hyperplasia. There was limited megakaryocyte dyspoiesis and limited dyserythropoiesis. There was just scant storage iron. There was no evidence of an infiltrative process. Flow cytometry showed no aberrant myeloid or lymphoid populations, and a FISH panel for MDS was unrevealing. 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 The remainder showed normal chromosome complement. With those findings and with recurrent iron deficiency despite repeated infusions of parenteral iron, he was referred to [facility] for a second opinion evaluation. He was seen there in November 2018, and he subsequently began a trial of therapy with tranexamic acid. 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 Despite that, he required blood transfusions again on 01/18/2019, on 01/22/2019, on 02/05/2019, on 02/12/2019, and on 02/19/2019. 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 With that finding, we were able to get approval for a trial of therapy with a Avastin. He received his initial infusion of a Avastin at the 5 mg/kg dosage on 02/19/2019. He tolerated it well. As of 03/01/2019 his hemoglobin was adequate at 10.8 g. He then continued the Avastin at 2-week intervals. During that time he experienced a gradual increase in his hemoglobin/hematocrit levels. As of 08/22/2019 he received his 10th infusion of a Avastin. His hemoglobin was stable at 13.2 g, and we opted to try stopping his treatment. As of his follow-up visit on 11/22/2019 his hemoglobin had decreased to 9.6 g. His transferrin saturation was low at 13.6%, consistent with recurrent iron deficiency. He was then given parenteral iron replacement with 2 infusions of Injectafer. As of 12/05/2019, hemoglobin remained stable at 9.5 g, and at that point he restarted Avastin at 5 mg/kg by IV infusion every 2 weeks. As of 01/02/2020 his hemoglobin had increased to 11.3 g. His transferrin saturation, though, was low again at 4.7%, and he was given further parenteral iron replacement with 2 additional infusions of Injectafer. He continued treatment with Avastin every 2 weeks with his hemoglobin stabilizing in the range of 11 to 12 g. As of March 2020 the interval of his Avastin infusions was increased to 4 weeks. His medical history is otherwise unremarkable. He reports no other medical illnesses. His most recent colonoscopy was in 2007. He is a nonsmoker. INTERIM HISTORY: I had seen him for a follow-up visit on 01/13/2021. At that point, he had made plans to move to [place]. He received his last infusion of Avastin on 02/10/2021. I had made arrangements for him to continue treatment with the tunneller in [place]. He was then seen back here on 04/30/2021, as his plans in [place] had not worked out as expected. His CBC 2 days earlier had shown a drop in his hemoglobin to 9.4 g. His subsequent serum iron studies showed transferrin saturation low at 10.4%, consistent with iron deficiency. He restarted bevacizumab 5 mg/kg by IV infusion every 2 weeks for 3 treatments. He also was given 2 infusions of Injectafer for the iron deficiency. He is seen for a follow-up visit. He has been feeling good generally. Energy/activity tolerance have improved following the iron infusions. His ECOG score is 1. He has good appetite. He has no fever or night sweats. He always has sinus drainage. He has not had sore mouth or throat, and he does not complain of cough. He has no shortness of breath or chest pain. He currently has no GI or complaints. He does have some arthritis pain, mainly in his hands. He has had headache off and on. He does not complain of dizziness. He has no numbness/paresthesia or other focal neurologic symptoms. He does bruise easily. Medications: Benadryl Allergy 1 Tablet (of 25 mg) Oral at bedtime PRN, C 1000 1 Tablet (of 1000 mg) Oral daily, Cholecalciferol 1 Capsule (of 10 mcg ) Oral daily, Ferrous Sulfate 2 (325 (65 fe) mg) Tablet Oral daily Allergies: No Known Allergies. Vital Signs: Performed on Jun 30, 2021 09:59 Height - 70.00 in Weight - 165.2 lbs (HIGH) BSA - 1.92 sq.m BMI - 23.70 Temperature - 99 F (HIGH) Pulse - 75 /min Respiration - 18 /min BP - 163/75 mm(hg) (HIGH) O2 Sat - 97 % Pain - 0 Fatigue - 0 Physical Examination: Constitutional - He looks pretty good generally, Eyes - Sclerae nonicteric. Conjunctivae clear, ENMT - No lesions noted in the oral cavity, Hematologic/Lymphatic - No cervical, clavicular, or axillary adenopathy, Respiratory - Lungs are clear with diminished air movement bilaterally, Cardiovascular - Heart rhythm is regular. There is a II/ systolic murmur. There is no gallop or rub noted, Abdomen - Soft. Liver and spleen are not enlarged. There is no abdominal mass or ascites noted and there is no inguinal adenopathy, Extremities - Mild edema, Integumentary - There are multiple telangiectasia in the facial area, Neurologic - No focal neurologic deficits noted. Lab/Imaging: Test performed on Jun 30, 2021 08:20 Ferritin 345 ng/mL Iron 61 mcg/dL Sodium 139 mmol/L Iron Binding Capacity (TIBC) 204 mcg/dl Potassium 4.1 mmol/L % Iron Saturation 29.9 % Chloride 108 mmol/L CO2 24 mmol/L UIBC 143 mcg/dL Anion Gap 11.1 BUN 9 mg/dL Creatinine 0.6 mg/dL Cr Clearance (Est) 94.3600 mL/min Glucose 75 mg/dL Osmolality - Calculated 285 mOsm/kg Calcium 8.3 mg/dL Protein, Total 6.8 g/dL Albumin 3.6 g/dL Globulin 3.2 g/dL Bilirubin, Total 0.3 mg/dL ALT (SGPT) 12 U/L AST (SGOT) 48 U/L Alkaline Phosphatase 90 IU/L WBC 5.6 10 3/uL RBC 3.94 10 6/uL HGB 12.7 g/dL HCT 40.4 % MCV 102.5 fl MCH 32.2 pg MCHC 31.4 g/dL RDW 15.8 % Platelet Count 144 10 3/cmm MPV 10.8 fL Neutrophils 3.22 10 3/uL Lymphocytes 1.1 10 3/uL Monocytes 0.8 10 3/uL Eosinophils 0.4 10 3/uL Basophils 0.1 10 3/uL Neutrophil % 58.0 % Lymphocyte % 19.8 % Monocyte % 13.5 % Eosinophil % 7.4 % Basophils % 1.3 % NRBC % 0 % Problem List: 1. 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 2. He has had iron deficiency anemia associated with chronic blood loss, which has included epistaxis and GI blood loss. Problems Addressed with this Encounter and Plan: 1. Patient with hereditary hemorrhagic telangiectasia. He has had iron deficiency anemia associated with chronic blood loss, which has included epistaxis and GI blood loss. He has been followed here since December 2016. During subsequent follow-up he required parenteral iron replacement on multiple occasions, and he received multiple transfusions of PRBC. He underwent EGD for acute GI bleeding on 02/15/2018. He was noted to have multiple AVMs in the gastric body. There were associated stigmata of bleeding, and he was treated with clipping and/or cautery. In November 2018 he was seen at [facility] for a second opinion evaluation. He began a trial therapy with tranexamic acid, but with no apparent benefit. 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 Despite that, he continued to require transfusion on a pretty much weekly basis. In January 2019 he began a trial of therapy with Avastin 5 mg/kg by IV infusion, initially administered at 2-week intervals. He had a very good clinical response with complete transfusion independence. As of 08/22/2019 he had completed his 10th infusion of Avastin. His hemoglobin was stable at 13.2 g, and at that point we opted to try stopping his treatment. As of 11/22/2019 his hemoglobin had dropped back down to 9.6 g with transferrin saturation low at 13.6%, consistent with iron deficiency. He was given parenteral iron replacement with 2 infusions of Injectafer, to which he did not show a significant response. As of 12/05/2019 he restarted treatment with Avastin 5 mg/kg by IV every 2 weeks. In December 2019 he did receive additional parenteral iron replacement with Injectafer, and he continued the Avastin infusions every 2 weeks. His hemoglobin then stabilized in the range of 11 to 12 g. As of March 2020 the interval of his Avastin infusions was increased to 4 weeks. During subsequent follow-up his hemoglobin/hematocrit levels had remained stable, and he has been stable clinically. Following his Avastin infusion on 02/10/2021, he had moved to [place]. That move, however, did not work out for him. As such, he had not been able to continue his treatment, nad on his return here he had become mildly anemic again. He then restarted Avastin at 5 mg/kg by IV infusion, administered every 2 weeks for 3 infusions. He again appears to be responding well, and he will now continue Avastin at 5 mg/kg by IV infusion every 4 weeks. 2. He has associated iron deficiency anemia. He has had a good response to parenteral iron replacement with Injectafer. He will be given further parenteral iron as indicated. Signed By: Jalil Olmos M.D. <<Signature on File>>
== END 2021-06-30 08:01 | disposition home or self-care (01) ==
PROVIDERS: PCP Emergency Medicine Emergency Medical Services; Visit Provider Internal Medicine Medical Oncology
DX: I78.0 Hereditary hemorrhagic telangiectasia (principal); D50.9 Iron deficiency anemia, unspecified; Z79.899 Other long term (current) drug therapy
CPT/HCPCS: 80053; 82728; 83540; 83550; 85025; 96413; 99215; J7050; J9035

== ENCOUNTER 2021-07-28 12:50 | Outpatient (CLI) | payer OTHER, SELFPAY ==
[2021-07-28 14:03] LABS: Basophils # 0.1 10^3/uL (0.0-0.1); Basophils % 1.3 %; Eosinophils # 0.4 10^3/uL (0.0-0.8); Eosinophils % 6.5 %; Hematocrit 36.3 % (42.0-52.0); Hemoglobin 11.5 g/dL (11.7-16.6); Lymphocytes % 15.6 %; Mean Corpuscular HGB Conc 31.7 g/dL (30.0-36.0); Mean Corpuscular Volume 101.1 fl (80-94); Mean Platelet Volume 10.7 fL (7.4-10.4); Monocytes # 0.7 10^3/uL (0.2-0.9); Monocytes % 10.7 %; Neutrophils # 4.03 10^3/uL (1.8-7.7); Neutrophils % 65.6 %; Nucleated Red Blood Cells % 0 %; Platelet Count 169 10^3/cmm (130-400); Red Blood Count 3.59 10^6/uL (4.1-5.3); Red Cell Distribution Width 15.1 % (12.1-15.1); White Blood Count 6.2 10^3/uL (4.0-10.0)
[2021-07-28] MEDS: sodium chloride 0.9% 250 ML 75 ML IV (14:15)
== END 2021-07-28 12:51 | disposition home or self-care (01) ==
LOC: ONCMED 12:53
PROVIDERS: PCP Emergency Medicine Emergency Medical Services; Visit Provider Internal Medicine Medical Oncology
DX: D50.9 Iron deficiency anemia, unspecified (principal); I78.0 Hereditary hemorrhagic telangiectasia; Z79.899 Other long term (current) drug therapy
CPT/HCPCS: 85025; 96413; J7050; J9035

== ENCOUNTER 2021-08-25 11:05 | Outpatient (CLI) | payer OTHER, SELFPAY ==
[2021-08-25 11:45] LABS: Basophils # 0.1 10^3/uL (0.0-0.1); Basophils % 1.3 %; Eosinophils # 0.5 10^3/uL (0.0-0.8); Eosinophils % 8.6 %; Hematocrit 36.2 % (42.0-52.0); Lymphocytes # 0.9 10^3/uL (0.8-4.8); Lymphocytes % 17.6 %; Mean Corpuscular HGB Conc 33.1 g/dL (30.0-36.0); Mean Corpuscular Volume 99.5 fl (80-94); Mean Platelet Volume 10.6 fL (7.4-10.4); Monocytes # 0.7 10^3/uL (0.2-0.9); Neutrophils # 3.08 10^3/uL (1.8-7.7); Neutrophils % 59.1 %; Nucleated Red Blood Cells % 0 %; Platelet Count 172 10^3/cmm (130-400); Red Blood Count 3.64 10^6/uL (4.1-5.3); Red Cell Distribution Width 14.8 % (12.1-15.1); White Blood Count 5.2 10^3/uL (4.0-10.0)
[2021-08-25 12:12] LABS: Alanine Aminotransferase 13 U/L (0-41); Albumin Level 3.7 g/dL (3.5-5.2); Alkaline Phosphatase 87 IU/L (40-130); Aspartate Amino Transferase 50 U/L (0-40); Blood Urea Nitrogen 10 mg/dL (8-23); Carbon Dioxide 23 mmol/L (22-29); Chloride 105 mmol/L (98-107); Ferritin 121 ng/mL (30-400); Glucose 73 mg/dL (65-115); Iron 142 ug/dL (59-158); Osmolality Calculated 278 mOsm/kg (285-295); Percent Saturation 57.4 % (20-50); Sodium 135 mmol/L (136-145); Total Bilirubin 0.5 mg/dL (0.15-1.2); Total Iron Binding Capacity 247 mcg/dl; Total Protein 6.7 g/dL (6.6-8.7); Unsaturated Iron Binding 105 ug/dL (112-347)
[2021-08-25 12:14] LABS: Anion Gap 11.2 (5-19); Potassium 4.2 mmol/L (3.5-5.1)
[2021-08-25] MEDS: sodium chloride 0.9% 250 ML 75 ML IV (13:50)
--- NOTE | 2021-08-26 06:53 | ONC FU_ITS ---
Dr. 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 He has associated iron deficiency anemia from chronic blood loss. He was initially seen here by Dr. Camacho on 01/20/2017. He had a history of chronic, iron dependent anemia, beginning 35 years earlier with the discovery of a bleeding ulcer. He had gone off of his iron 8 years earlier at the suggestion of his PCP, but he very quickly needed a blood transfusion 3 weeks later . He then continued on oral iron as well as oral B12 every day. He also reported a 40-year history of having frequent nosebleeds, almost daily. [facility] diagnosis of hereditary hemorrhagic telangiectasias. His laboratory studies at that time included CBC showing hemoglobin 10.2 g, white blood cell count 5400 and platelet count 245,000. The red cell indices were normal. The uncorrected reticulocyte count was 3.6%. Haptoglobin was normal at 227 mg/dL with total bilirubin normal at 0.3 mg/dL and LDH normal at 153 U/L. His B12 and folate levels were both normal, as was the methylmalonic acid level. Ferritin was low at 19.2 ng/mL. He was given parenteral iron replacement with infusions of Injectafer on 02/02/2017 and on 02/09/2017. He tolerated it well. On his follow-up visit on 03/10/2017 his hemoglobin was basically unchanged at 10.3 g. Serum iron was still low at 33 mcg/dL with transferrin saturation 9.5%. Ferritin had come up to 84 ng/mL compared to 19 ng from milliliter on 01/20/2017. He was given additional infusions of Injectafer on 03/10/2017 and on 03/17/2017. His follow-up CBC on 04/14/2017 still showed mild anemia with hemoglobin 10.6 g. The serum iron studies still showed low transferrin saturation of 12%. The ferritin was up to 117 ng/mL. He failed to return for further follow-up. On 02/13/2018 he was admitted to the hospital after presenting to the emergency room with recurrent anemia, hemoglobin 7.4 g. He was transfused with 2 units of packed red blood cells. EGD showed multiple gastric AVMs which were treated with either clipping and/or cautery. He was then back in the emergency room on 02/23/2018 with hemoglobin 7.3 g, and he received another 2 units of packed red blood cells. I had seen him for a follow-up visit on 03/02/2018. His hemoglobin was still only 8.7 g with transferrin saturation low at 15.7% and ferritin low at 22 ng/mL. He was then given additional parenteral iron replacement with infusions of Injectafer on 03/13/2018 and 03/21/2018. Despite the iron infusions, as of his follow-up visit on 04/20/2018 his hemoglobin was back down to 7.5 g with transferrin saturation 15.9%. He was transfused 2 units of packed red blood cells and he was given additional infusions of Injectafer on 04/20/2018 and on 04/27/2018. As of 05/04/2018 his hemoglobin had further decline to 6.3 g with white blood cell count 4400 and platelet count 192,000. The red cell indices were macrocytic, MCV 113 and MCH 36. The uncorrected reticulocyte count was 14.4%. Haptoglobin was low at 27.1 mg/dL with LDH normal at 231 U/L. He was given a transfusion of 3 units of PRBC on 05/05/2018. He required further transfusions of 2 units of PRBC on 05/12/2018 and again on 05/23/2018. He underwent bone marrow aspiration/biopsy on 05/18/2018. The marrow was hypercellular, estimated at 80-90%. There was erythroid hyperplasia. There was limited megakaryocyte dyspoiesis and limited dyserythropoiesis. There was just scant storage iron. There was no evidence of an infiltrative process. Flow cytometry showed no aberrant myeloid or lymphoid populations, and a FISH panel for MDS was unrevealing. 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 The remainder showed normal chromosome complement. With those findings and with recurrent iron deficiency despite repeated infusions of parenteral iron, he was referred to [facility] for a second opinion evaluation. He was seen there in November 2018, and he subsequently began a trial of therapy with tranexamic acid. 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 Despite that, he required blood transfusions again on 01/18/2019, on 01/22/2019, on 02/05/2019, on 02/12/2019, and on 02/19/2019. 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 With that finding, we were able to get approval for a trial of therapy with a Avastin. He received his initial infusion of a Avastin at the 5 mg/kg dosage on 02/19/2019. He tolerated it well. As of 03/01/2019 his hemoglobin was adequate at 10.8 g. He then continued the Avastin at 2-week intervals. During that time he experienced a gradual increase in his hemoglobin/hematocrit levels. As of 08/22/2019 he received his 10th infusion of a Avastin. His hemoglobin was stable at 13.2 g, and we opted to try stopping his treatment. As of his follow-up visit on 11/22/2019 his hemoglobin had decreased to 9.6 g. His transferrin saturation was low at 13.6%, consistent with recurrent iron deficiency. He was then given parenteral iron replacement with 2 infusions of Injectafer. As of 12/05/2019, hemoglobin remained stable at 9.5 g, and at that point he restarted Avastin at 5 mg/kg by IV infusion every 2 weeks. As of 01/02/2020 his hemoglobin had increased to 11.3 g. His transferrin saturation, though, was low again at 4.7%, and he was given further parenteral iron replacement with 2 additional infusions of Injectafer. He continued treatment with Avastin every 2 weeks with his hemoglobin stabilizing in the range of 11 to 12 g. As of March 2020 the interval of his Avastin infusions was increased to 4 weeks. His medical history is otherwise unremarkable. He reports no other medical illnesses. His most recent colonoscopy was in 2007. He is a nonsmoker. INTERIM HISTORY: I had seen him for a follow-up visit on 01/13/2021. At that point, he had made plans to move to [place]. He received his last infusion of Avastin on 02/10/2021. I had made arrangements for him to continue treatment with the staffing branch manager in [place]. He was then seen back here on 04/30/2021, as his plans in [place] had not worked out as expected. His CBC 2 days earlier had shown a drop in his hemoglobin to 9.4 g. His subsequent serum iron studies showed transferrin saturation low at 10.4%, consistent with iron deficiency. He restarted bevacizumab 5 mg/kg by IV infusion every 2 weeks for 3 treatments. He also was given 2 infusions of Injectafer for the iron deficiency. As of 06/30/2021 his hemoglobin was back up to 12.7 g. He continued treatment with Avastin 5 mg/kg by IV infusion every 4 weeks. He is seen for a follow-up visit. He says his energy is okay, though could be better. He is able to do light work. His ECOG score is 1. He has good appetite. He has no fever or night sweats. He has some allergy related sinus symptoms. He has not had sore mouth or throat. He sometimes has cough. He does not complain of shortness of breath or chest pain. He currently has no GI or complaints. He does have some arthritis pain, mainly in his hands. He does not complain of headache or dizziness, and he has no focal neurologic symptoms. Medications: Benadryl Allergy 1 Tablet (of 25 mg) Oral at bedtime PRN, C 1000 1 Tablet (of 1000 mg) Oral daily, Cholecalciferol 1 Capsule (of 10 mcg ) Oral daily, Ferrous Sulfate 2 (325 (65 fe) mg) Tablet Oral daily Allergies: No Known Allergies. Vital Signs: Performed on Aug 25, 2021 13:19 Height - 70.00 in Weight - 167.4 lbs (HIGH) BSA - 1.94 sq.m BMI - 24.02 Temperature - 98.4 F Pulse - 73 /min Respiration - 18 /min BP - 164/69 mm(hg) (HIGH) O2 Sat - 98 % Pain - 0 Fatigue - 0 Performed on Aug 25, 2021 13:10 Height - 70.00 in Weight - 164.7 lbs (LOW) BSA - 1.92 sq.m BMI - 23.63 Physical Examination: Constitutional - He looks pretty good generally, Eyes - Sclerae nonicteric. Conjunctivae clear, ENMT - No lesions noted in the oral cavity, Hematologic/Lymphatic - No cervical, clavicular, or axillary adenopathy, Respiratory - Lungs are clear with diminished air movement bilaterally, Cardiovascular - Heart rhythm is regular. There is a II/ systolic murmur. There is no gallop or rub noted, Abdomen - Soft. Liver and spleen are not enlarged. There is no abdominal mass or ascites noted and there is no inguinal adenopathy, Extremities - Slight edema. Pedal pulses are palpable bilaterally, Integumentary - There are multiple telangiectasia in the facial area, Neurologic - No focal neurologic deficits noted. Lab/Imaging: Test performed on Aug 25, 2021 11:28 Ferritin 121 ng/mL Iron 142 mcg/dL Sodium 135 mmol/L Iron Binding Capacity (TIBC) 247 mcg/dl Potassium 4.2 mmol/L % Iron Saturation 57.4 % Chloride 105 mmol/L CO2 23 mmol/L UIBC 105 mcg/dL Anion Gap 11.2 BUN 10 mg/dL Creatinine 0.7 mg/dL Cr Clearance (Est) 80.8800 mL/min Glucose 73 mg/dL Osmolality - Calculated 278 mOsm/kg Calcium 9.0 mg/dL Protein, Total 6.7 g/dL Albumin 3.7 g/dL Globulin 3.0 g/dL Bilirubin, Total 0.5 mg/dL ALT (SGPT) 13 U/L AST (SGOT) 50 U/L Alkaline Phosphatase 87 IU/L WBC 5.2 10 3/uL RBC 3.64 10 6/uL HGB 12.0 g/dL HCT 36.2 % MCV 99.5 fl MCH 33.0 pg MCHC 33.1 g/dL RDW 14.8 % Platelet Count 172 10 3/cmm MPV 10.6 fL Neutrophils 3.08 10 3/uL Lymphocytes 0.9 10 3/uL Monocytes 0.7 10 3/uL Eosinophils 0.5 10 3/uL Basophils 0.1 10 3/uL Neutrophil % 59.1 % Lymphocyte % 17.6 % Monocyte % 13.0 % Eosinophil % 8.6 % Basophils % 1.3 % NRBC % 0 % Problem List: 1. 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 2. He has had iron deficiency anemia associated with chronic blood loss, which has included epistaxis and GI blood loss. Problems Addressed with this Encounter and Plan: 1. Patient with hereditary hemorrhagic telangiectasia. He has had iron deficiency anemia associated with chronic blood loss, which has included epistaxis and GI blood loss. He has been followed here since December 2016. During subsequent follow-up he required parenteral iron replacement on multiple occasions, and he received multiple transfusions of PRBC. He underwent EGD for acute GI bleeding on 02/15/2018. He was noted to have multiple AVMs in the gastric body. There were associated stigmata of bleeding, and he was treated with clipping and/or cautery. In November 2018 he was seen at [facility] for a second opinion evaluation. He began a trial therapy with tranexamic acid, but with no apparent benefit. 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 Despite that, he continued to require transfusion on a pretty much weekly basis. In January 2019 he began a trial of therapy with Avastin 5 mg/kg by IV infusion, initially administered at 2-week intervals. He had a very good clinical response with complete transfusion independence. As of 08/22/2019 he had completed his 10th infusion of Avastin. His hemoglobin was stable at 13.2 g, and at that point we opted to try stopping his treatment. As of 11/22/2019 his hemoglobin had dropped back down to 9.6 g with transferrin saturation low at 13.6%, consistent with iron deficiency. He was given parenteral iron replacement with 2 infusions of Injectafer, to which he did not show a significant response. As of 12/05/2019 he restarted treatment with Avastin 5 mg/kg by IV every 2 weeks. In December 2019 he did receive additional parenteral iron replacement with Injectafer, and he continued the Avastin infusions every 2 weeks. His hemoglobin then stabilized in the range of 11 to 12 g. As of March 2020 the interval of his Avastin infusions was increased to 4 weeks. During subsequent follow-up his hemoglobin/hematocrit levels had remained stable, and he has been stable clinically. Following his Avastin infusion on 02/10/2021, he had moved to [place]. That move, however, did not work out for him. As such, he had not been able to continue his treatment, and on his return here he had become mildly anemic again. He restarted Avastin at 5 mg/kg by IV infusion, administered every 2 weeks for 3 infusions. He appeared to have a good response, and he then continued the Avastin at 5 mg/kg by IV infusion every 4 weeks. His hemoglobin/hematocrit levels at this point remain adequate, and he appears to be doing well clinically. He is wanting to try and space out his Avastin infusions so that he can have some extra time off for vacation. As such, he will be given Avastin 5 mg/kg by IV infusion today. He will return in 2 weeks for another infusion at 10 mg/kg, and I will then plan a follow-up visit in 6 weeks. 2. He has associated iron deficiency anemia. He has had a good response to parenteral iron replacement with Injectafer. He will be given further parenteral iron as indicated. Signed By: Jalil Olmos M.D. <<Signature on File>>
== END 2021-08-25 11:06 | disposition home or self-care (01) ==
PROVIDERS: PCP Emergency Medicine Emergency Medical Services; Visit Provider Internal Medicine Medical Oncology
DX: Z51.11 Encounter for antineoplastic chemotherapy (principal); I78.0 Hereditary hemorrhagic telangiectasia; D50.0 Iron deficiency anemia secondary to blood loss (chronic); Z79.899 Other long term (current) drug therapy
CPT/HCPCS: 80053; 82728; 83540; 83550; 85025; 96413; 99215; J7050; J9035

== ENCOUNTER 2021-09-15 08:14 | Outpatient (CLI) | payer OTHER, SELFPAY ==
--- NOTE | 2021-09-15 09:09 | ONC FU_ITS ---
Dr. 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 He has associated iron deficiency anemia from chronic blood loss. He was initially seen here by Dr. Camacho on 01/20/2017. He had a history of chronic, iron dependent anemia, beginning 35 years earlier with the discovery of a bleeding ulcer. He had gone off of his iron 8 years earlier at the suggestion of his PCP, but he very quickly needed a blood transfusion 3 weeks later . He then continued on oral iron as well as oral B12 every day. He also reported a 40-year history of having frequent nosebleeds, almost daily. [facility] diagnosis of hereditary hemorrhagic telangiectasias. His laboratory studies at that time included CBC showing hemoglobin 10.2 g, white blood cell count 5400 and platelet count 245,000. The red cell indices were normal. The uncorrected reticulocyte count was 3.6%. Haptoglobin was normal at 227 mg/dL with total bilirubin normal at 0.3 mg/dL and LDH normal at 153 U/L. His B12 and folate levels were both normal, as was the methylmalonic acid level. Ferritin was low at 19.2 ng/mL. He was given parenteral iron replacement with infusions of Injectafer on 02/02/2017 and on 02/09/2017. He tolerated it well. On his follow-up visit on 03/10/2017 his hemoglobin was basically unchanged at 10.3 g. Serum iron was still low at 33 mcg/dL with transferrin saturation 9.5%. Ferritin had come up to 84 ng/mL compared to 19 ng from milliliter on 01/20/2017. He was given additional infusions of Injectafer on 03/10/2017 and on 03/17/2017. His follow-up CBC on 04/14/2017 still showed mild anemia with hemoglobin 10.6 g. The serum iron studies still showed low transferrin saturation of 12%. The ferritin was up to 117 ng/mL. He failed to return for further follow-up. On 02/13/2018 he was admitted to the hospital after presenting to the emergency room with recurrent anemia, hemoglobin 7.4 g. He was transfused with 2 units of packed red blood cells. EGD showed multiple gastric AVMs which were treated with either clipping and/or cautery. He was then back in the emergency room on 02/23/2018 with hemoglobin 7.3 g, and he received another 2 units of packed red blood cells. I had seen him for a follow-up visit on 03/02/2018. His hemoglobin was still only 8.7 g with transferrin saturation low at 15.7% and ferritin low at 22 ng/mL. He was then given additional parenteral iron replacement with infusions of Injectafer on 03/13/2018 and 03/21/2018. Despite the iron infusions, as of his follow-up visit on 04/20/2018 his hemoglobin was back down to 7.5 g with transferrin saturation 15.9%. He was transfused 2 units of packed red blood cells and he was given additional infusions of Injectafer on 04/20/2018 and on 04/27/2018. As of 05/04/2018 his hemoglobin had further decline to 6.3 g with white blood cell count 4400 and platelet count 192,000. The red cell indices were macrocytic, MCV 113 and MCH 36. The uncorrected reticulocyte count was 14.4%. Haptoglobin was low at 27.1 mg/dL with LDH normal at 231 U/L. He was given a transfusion of 3 units of PRBC on 05/05/2018. He required further transfusions of 2 units of PRBC on 05/12/2018 and again on 05/23/2018. He underwent bone marrow aspiration/biopsy on 05/18/2018. The marrow was hypercellular, estimated at 80-90%. There was erythroid hyperplasia. There was limited megakaryocyte dyspoiesis and limited dyserythropoiesis. There was just scant storage iron. There was no evidence of an infiltrative process. Flow cytometry showed no aberrant myeloid or lymphoid populations, and a FISH panel for MDS was unrevealing. 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 The remainder showed normal chromosome complement. With those findings and with recurrent iron deficiency despite repeated infusions of parenteral iron, he was referred to [facility] for a second opinion evaluation. He was seen there in November 2018, and he subsequently began a trial of therapy with tranexamic acid. 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 Despite that, he required blood transfusions again on 01/18/2019, on 01/22/2019, on 02/05/2019, on 02/12/2019, and on 02/19/2019. 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 With that finding, we were able to get approval for a trial of therapy with a Avastin. He received his initial infusion of a Avastin at the 5 mg/kg dosage on 02/19/2019. He tolerated it well. As of 03/01/2019 his hemoglobin was adequate at 10.8 g. He then continued the Avastin at 2-week intervals. During that time he experienced a gradual increase in his hemoglobin/hematocrit levels. As of 08/22/2019 he received his 10th infusion of a Avastin. His hemoglobin was stable at 13.2 g, and we opted to try stopping his treatment. As of his follow-up visit on 11/22/2019 his hemoglobin had decreased to 9.6 g. His transferrin saturation was low at 13.6%, consistent with recurrent iron deficiency. He was then given parenteral iron replacement with 2 infusions of Injectafer. As of 12/05/2019, hemoglobin remained stable at 9.5 g, and at that point he restarted Avastin at 5 mg/kg by IV infusion every 2 weeks. As of 01/02/2020 his hemoglobin had increased to 11.3 g. His transferrin saturation, though, was low again at 4.7%, and he was given further parenteral iron replacement with 2 additional infusions of Injectafer. He continued treatment with Avastin every 2 weeks with his hemoglobin stabilizing in the range of 11 to 12 g. As of March 2020 the interval of his Avastin infusions was increased to 4 weeks. His medical history is otherwise unremarkable. He reports no other medical illnesses. His most recent colonoscopy was in 2007. He is a nonsmoker. INTERIM HISTORY: I had seen him for a follow-up visit on 01/13/2021. At that point, he had made plans to move to [place]. He received his last infusion of Avastin on 02/10/2021. 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 He was then seen back here on 04/30/2021, as his plans in [place] had not worked out as expected. His CBC 2 days earlier had shown a drop in his hemoglobin to 9.4 g. His subsequent serum iron studies showed transferrin saturation low at 10.4%, consistent with iron deficiency. He restarted bevacizumab 5 mg/kg by IV infusion every 2 weeks for 3 treatments. He also was given 2 infusions of Injectafer for the iron deficiency. As of 06/30/2021 his hemoglobin was back up to 12.7 g. He continued treatment with Avastin 5 mg/kg by IV infusion every 4 weeks. He is seen for a follow-up visit. He is still feeling pretty good generally. He does have some fatigue, but he is able to do light work. ECOG score is 1. He has good appetite. He has no fever or night sweats. He has not had sore mouth or throat. He does have some nosebleeds, but only a little bit and just occasionally. He has a tendency to have cough in the morning. He does not complain of shortness of breath or chest pain. He has no GI or complaints. In particular, he has not been aware of any blood in the stool. 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 He occasionally has headache. He has no focal neurologic symptoms. Medications: Benadryl Allergy 1 Tablet (of 25 mg) Oral at bedtime PRN, C 1000 1 Tablet (of 1000 mg) Oral daily, Cholecalciferol 1 Capsule (of 10 mcg ) Oral daily, Ferrous Sulfate 2 (325 (65 fe) mg) Tablet Oral daily Allergies: No Known Allergies. Vital Signs: Performed on Sep 15, 2021 08:34 Height - 70.00 in Weight - 166.6 lbs (LOW) BSA - 1.93 sq.m BMI - 23.90 Temperature - 98.0 F (LOW) Pulse - 75 /min Respiration - 16 /min BP - 159/83 mm(hg) (HIGH) O2 Sat - 98 % Pain - 0 Fatigue - 8 Physical Examination: Constitutional - He looks pretty good generally, Eyes - Sclerae nonicteric. Conjunctivae clear, ENMT - No lesions noted in the oral cavity, Hematologic/Lymphatic - No cervical, clavicular, or axillary adenopathy, Respiratory - Lungs are clear with diminished air movement bilaterally, Cardiovascular - Heart rhythm is a little irregular. There is a II/ systolic murmur. There is no gallop or rub noted, Abdomen - Soft. Liver and spleen are not enlarged. There is no abdominal mass or ascites noted and there is no inguinal adenopathy, Extremities - No edema, Integumentary - There are multiple telangiectasia in the facial area, Neurologic - No focal neurologic deficits noted. Lab/Imaging: Test performed on Aug 25, 2021 11:28 Ferritin 121 ng/mL Iron 142 mcg/dL Sodium 135 mmol/L Iron Binding Capacity (TIBC) 247 mcg/dl Potassium 4.2 mmol/L % Iron Saturation 57.4 % Chloride 105 mmol/L CO2 23 mmol/L UIBC 105 mcg/dL Anion Gap 11.2 BUN 10 mg/dL Creatinine 0.7 mg/dL Cr Clearance (Est) 80.8800 mL/min Glucose 73 mg/dL Osmolality - Calculated 278 mOsm/kg Calcium 9.0 mg/dL Protein, Total 6.7 g/dL Albumin 3.7 g/dL Globulin 3.0 g/dL Bilirubin, Total 0.5 mg/dL ALT (SGPT) 13 U/L AST (SGOT) 50 U/L Alkaline Phosphatase 87 IU/L WBC 5.2 10 3/uL RBC 3.64 10 6/uL HGB 12.0 g/dL HCT 36.2 % MCV 99.5 fl MCH 33.0 pg MCHC 33.1 g/dL RDW 14.8 % Platelet Count 172 10 3/cmm MPV 10.6 fL Neutrophils 3.08 10 3/uL Lymphocytes 0.9 10 3/uL Monocytes 0.7 10 3/uL Eosinophils 0.5 10 3/uL Basophils 0.1 10 3/uL Neutrophil % 59.1 % Lymphocyte % 17.6 % Monocyte % 13.0 % Eosinophil % 8.6 % Basophils % 1.3 % NRBC % 0 % Problem List: 1. 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 2. He has had iron deficiency anemia associated with chronic blood loss, which has included epistaxis and GI blood loss. Problems Addressed with this Encounter and Plan: 1. Patient with hereditary hemorrhagic telangiectasia. He has had iron deficiency anemia associated with chronic blood loss, which has included epistaxis and GI blood loss. He has been followed here since December 2016. During subsequent follow-up he required parenteral iron replacement on multiple occasions, and he received multiple transfusions of PRBC. He underwent EGD for acute GI bleeding on 02/15/2018. He was noted to have multiple AVMs in the gastric body. There were associated stigmata of bleeding, and he was treated with clipping and/or cautery. In November 2018 he was seen at [facility] for a second opinion evaluation. He began a trial therapy with tranexamic acid, but with no apparent benefit. 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 Despite that, he continued to require transfusion on a pretty much weekly basis. In January 2019 he began a trial of therapy with Avastin 5 mg/kg by IV infusion, initially administered at 2-week intervals. He had a very good clinical response with complete transfusion independence. As of 08/22/2019 he had completed his 10th infusion of Avastin. His hemoglobin was stable at 13.2 g, and at that point we opted to try stopping his treatment. As of 11/22/2019 his hemoglobin had dropped back down to 9.6 g with transferrin saturation low at 13.6%, consistent with iron deficiency. He was given parenteral iron replacement with 2 infusions of Injectafer, to which he did not show a significant response. As of 12/05/2019 he restarted treatment with Avastin 5 mg/kg by IV every 2 weeks. In December 2019 he did receive additional parenteral iron replacement with Injectafer, and he continued the Avastin infusions every 2 weeks. His hemoglobin then stabilized in the range of 11 to 12 g. As of March 2020 the interval of his Avastin infusions was increased to 4 weeks. During subsequent follow-up his hemoglobin/hematocrit levels had remained stable, and he has been stable clinically. Following his Avastin infusion on 02/10/2021, he had moved to [place]. That move, however, did not work out for him. As such, he had not been able to continue his treatment, and on his return here he had become mildly anemic again. He restarted Avastin at 5 mg/kg by IV infusion, administered every 2 weeks for 3 infusions. He appeared to have a good response, and he then continued the Avastin at 5 mg/kg by IV infusion every 4 weeks. His overall clinical status has since then remained stable. His treatment schedule has been a little messed up, as he had made plans to travel to [place], but then changed them. He is now planning to leave around 11 October and will be gone for an estimated 6 weeks. As such, he will given his standard dose of bevacizumab 5 mg/kg by IV infusion today. He will return on the for another infusion with the dosage increased to 10 mg/kg. I will then plan to see him again when he returns from [place]. 2. He has associated iron deficiency anemia. He has responded well to parenteral iron replacement with Injectafer. He will be given further parenteral iron as indicated. Signed By: Jalil Olmos M.D. <<Signature on File>>
[2021-09-15] MEDS: sodium chloride 0.9% 250 ML 75 ML IV (09:30)
== END 2021-09-15 08:15 | disposition home or self-care (01) ==
PROVIDERS: PCP Emergency Medicine Emergency Medical Services; Visit Provider Internal Medicine Medical Oncology
DX: Z51.11 Encounter for antineoplastic chemotherapy (principal); I78.0 Hereditary hemorrhagic telangiectasia; D50.0 Iron deficiency anemia secondary to blood loss (chronic); R04.0 Epistaxis; Z79.899 Other long term (current) drug therapy
CPT/HCPCS: 96413; 99215; J7050; J9035

== ENCOUNTER 2021-10-07 11:46 | Outpatient (CLI) | payer OTHER, SELFPAY ==
[2021-10-07 12:21] LABS: Basophils # 0.1 10^3/uL (0.0-0.1); Basophils % 1.2 %; Eosinophils # 0.7 10^3/uL (0.0-0.8); Eosinophils % 12.9 %; Hemoglobin 12.4 g/dL (11.7-16.6); Lymphocytes # 1.1 10^3/uL (0.8-4.8); Lymphocytes % 18.3 %; Mean Corpuscular HGB Conc 33.5 g/dL (30.0-36.0); Mean Corpuscular Hemoglobin 32.7 pg (28.0-34.0); Mean Corpuscular Volume 97.6 fl (80-94); Mean Platelet Volume 10.7 fL (7.4-10.4); Monocytes # 0.6 10^3/uL (0.2-0.9); Monocytes % 9.6 %; Neutrophils # 3.34 10^3/uL (1.8-7.7); Nucleated Red Blood Cells % 0 %; Platelet Count 170 10^3/cmm (130-400); Red Blood Count 3.79 10^6/uL (4.1-5.3); Red Cell Distribution Width 13.7 % (12.1-15.1); White Blood Count 5.8 10^3/uL (4.0-10.0)
[2021-10-07 12:47] LABS: Alanine Aminotransferase 11 U/L (0-41); Albumin Level 3.8 g/dL (3.5-5.2); Alkaline Phosphatase 79 IU/L (40-130); Anion Gap 17.3 (5-19); Aspartate Amino Transferase 43 U/L (0-40); Blood Urea Nitrogen 12 mg/dL (8-23); Calcium 8.5 mg/dL (8.5-10.5); Carbon Dioxide 20 mmol/L (22-29); Chloride 106 mmol/L (98-107); Glucose 76 mg/dL (65-115); Osmolality Calculated 287 mOsm/kg (285-295); Potassium 4.3 mmol/L (3.5-5.1); Sodium 139 mmol/L (136-145); Total Bilirubin 0.5 mg/dL (0.15-1.2); Total Protein 6.8 g/dL (6.6-8.7)
[2021-10-07 13:04] LABS: Ferritin 103 ng/mL (30-400); Iron 185 ug/dL (59-158); Percent Saturation 69.5 % (20-50); Total Iron Binding Capacity 266 mcg/dl; Unsaturated Iron Binding 81 ug/dL (112-347)
[2021-10-07] MEDS: sodium chloride 0.9% 250 ML 75 ML IV (13:45)
== END 2021-10-07 11:47 | disposition home or self-care (01) ==
PROVIDERS: PCP Emergency Medicine Emergency Medical Services; Visit Provider Internal Medicine Medical Oncology
DX: Z51.11 Encounter for antineoplastic chemotherapy (principal); I78.0 Hereditary hemorrhagic telangiectasia; D50.0 Iron deficiency anemia secondary to blood loss (chronic); K92.2 Gastrointestinal hemorrhage, unspecified
CPT/HCPCS: 80053; 82728; 83540; 83550; 85025; 96413; J7050; J9035

== ENCOUNTER 2022-01-26 11:09 | Outpatient (CLI) | payer OTHER, SELFPAY ==
[2022-01-26 11:49] LABS: Basophils % 0.5 %; Eosinophils # 0.2 10^3/uL (0.0-0.8); Eosinophils % 4.3 %; Hematocrit 22.1 % (42.0-52.0); Lymphocytes # 0.6 10^3/uL (0.8-4.8); Mean Corpuscular HGB Conc 27.6 g/dL (30.0-36.0); Mean Corpuscular Hemoglobin 30.7 pg (28.0-34.0); Mean Corpuscular Volume 111.1 fl (80-94); Mean Platelet Volume 10.5 fL (7.4-10.4); Monocytes # 0.5 10^3/uL (0.2-0.9); Monocytes % 11.8 %; Neutrophils # 2.68 10^3/uL (1.8-7.7); Neutrophils % 66.9 %; Nucleated Red Blood Cells % 0 %; Platelet Count 163 10^3/cmm (130-400); Red Blood Count 1.99 10^6/uL (4.1-5.3); Red Cell Distribution Width 18.8 % (12.1-15.1)
[2022-01-26 11:54] LABS: Hemoglobin 6.1 g/dL (11.7-16.6)
[2022-01-26 12:05] LABS: Bilirubin Urine 1+ (Negative); Blood Urine Neg (Negative); Glucose Urine UA Norm (Normal); Ketones Urine Negative (Negative); Nitrate Urine Negative (Negative); Protein Urine Trace (Negative); Urine Appearance Clear (CLEAR); Urine Color Dark Yellow (Yellow); pH Urine 5 (5-7)
[2022-01-26 12:05] LABS: Alanine Aminotransferase 12 U/L (0-41); Albumin Level 3.4 g/dL (3.5-5.2); Alkaline Phosphatase 92 IU/L (40-130); Anion Gap 13.9 (5-19); Aspartate Amino Transferase 47 U/L (0-40); Blood Urea Nitrogen 13 mg/dL (8-23); Calcium 8.5 mg/dL (8.5-10.5); Carbon Dioxide 20 mmol/L (22-29); Chloride 108 mmol/L (98-107); Ferritin 52 ng/mL (30-400); Glucose 89 mg/dL (65-115); Iron 46 ug/dL (59-158); Osmolality Calculated 286 mOsm/kg (285-295); Percent Saturation 16.7 % (20-50); Potassium 3.9 mmol/L (3.5-5.1); Sodium 138 mmol/L (136-145); Total Bilirubin 1.2 mg/dL (0.15-1.2); Total Iron Binding Capacity 274 mcg/dl; Total Protein 6.4 g/dL (6.6-8.7); Unsaturated Iron Binding 228 ug/dL (112-347)
[2022-01-26 12:06] LABS: Add Urine Culture? No; Add Urine Microscopic? YES; Bacteria Urine TRACE /hpf; Leukocyte Esterase Urine Negative (Negative); Mucus Urine 1+ /hpf; Urobilinogen Urine 8 mg/dL (Negative); WBC Urine RARE /hpf (0-5)
[2022-01-26] MEDS: acetaminophen 325 mg Tablet 650 MG PO (14:15)
[2022-01-26] MEDS: sodium chloride 0.9% 250 ML 999 ML IV (14:15)
[2022-01-26] MEDS: diphenhydrAMINE 25 mg Capsule PO (14:15)
[2022-01-26] MEDS: sodium chloride 0.9% 250 ML 75 ML IV (14:15)
[2022-01-26 14:25] VITALS: BP 142/62; PULSE 90; RESP 17; TEMP 37.1; O2SAT 99
[2022-01-26 14:40] VITALS: PULSE 75; RESP 17; TEMP 36.8; O2SAT 97
[2022-01-26 14:55] VITALS: BP 139/65; PULSE 79; RESP 17; TEMP 36.9; O2SAT 93
[2022-01-26 15:25] VITALS: BP 136/62; PULSE 80; RESP 17; TEMP 36.8
[2022-01-26 15:55] VITALS: BP 135/73; PULSE 71; RESP 17; TEMP 36.8; O2SAT 99
[2022-01-26 16:34] VITALS: BP 135/73; PULSE 74; RESP 17; TEMP 36.8; O2SAT 99
--- NOTE | 2022-01-29 10:36 | ONC FU_ITS ---
Dr. 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 History of Present Illness: This is an 86 year-old man with hereditary hemorrhagic telangiectasia. He has associated iron deficiency anemia from chronic blood loss. He was initially seen here by Dr. Camacho on 01/20/2017. He had a history of chronic, iron dependent anemia, beginning 35 years earlier with the discovery of a bleeding ulcer. He had gone off of his iron 8 years earlier at the suggestion of his PCP, but he very quickly needed a blood transfusion 3 weeks later . He then continued on oral iron as well as oral B12 every day. He also reported a 40-year history of having frequent nosebleeds, almost daily. [facility] diagnosis of hereditary hemorrhagic telangiectasias. His laboratory studies at that time included CBC showing hemoglobin 10.2 g, white blood cell count 5400 and platelet count 245,000. The red cell indices were normal. The uncorrected reticulocyte count was 3.6%. Haptoglobin was normal at 227 mg/dL with total bilirubin normal at 0.3 mg/dL and LDH normal at 153 U/L. His B12 and folate levels were both normal, as was the methylmalonic acid level. Ferritin was low at 19.2 ng/mL. He was given parenteral iron replacement with infusions of Injectafer on 02/02/2017 and on 02/09/2017. He tolerated it well. On his follow-up visit on 03/10/2017 his hemoglobin was basically unchanged at 10.3 g. Serum iron was still low at 33 mcg/dL with transferrin saturation 9.5%. Ferritin had come up to 84 ng/mL compared to 19 ng from milliliter on 01/20/2017. He was given additional infusions of Injectafer on 03/10/2017 and on 03/17/2017. His follow-up CBC on 04/14/2017 still showed mild anemia with hemoglobin 10.6 g. The serum iron studies still showed low transferrin saturation of 12%. The ferritin was up to 117 ng/mL. He failed to return for further follow-up. On 02/13/2018 he was admitted to the hospital after presenting to the emergency room with recurrent anemia, hemoglobin 7.4 g. He was transfused with 2 units of packed red blood cells. EGD showed multiple gastric AVMs which were treated with either clipping and/or cautery. He was then back in the emergency room on 02/23/2018 with hemoglobin 7.3 g, and he received another 2 units of packed red blood cells. I had seen him for a follow-up visit on 03/02/2018. His hemoglobin was still only 8.7 g with transferrin saturation low at 15.7% and ferritin low at 22 ng/mL. He was then given additional parenteral iron replacement with infusions of Injectafer on 03/13/2018 and 03/21/2018. Despite the iron infusions, as of his follow-up visit on 04/20/2018 his hemoglobin was back down to 7.5 g with transferrin saturation 15.9%. He was transfused 2 units of packed red blood cells and he was given additional infusions of Injectafer on 04/20/2018 and on 04/27/2018. As of 05/04/2018 his hemoglobin had further decline to 6.3 g with white blood cell count 4400 and platelet count 192,000. The red cell indices were macrocytic, MCV 113 and MCH 36. The uncorrected reticulocyte count was 14.4%. Haptoglobin was low at 27.1 mg/dL with LDH normal at 231 U/L. He was given a transfusion of 3 units of PRBC on 05/05/2018. He required further transfusions of 2 units of PRBC on 05/12/2018 and again on 05/23/2018. He underwent bone marrow aspiration/biopsy on 05/18/2018. The marrow was hypercellular, estimated at 80-90%. There was erythroid hyperplasia. There was limited megakaryocyte dyspoiesis and limited dyserythropoiesis. There was just scant storage iron. There was no evidence of an infiltrative process. Flow cytometry showed no aberrant myeloid or lymphoid populations, and a FISH panel for MDS was unrevealing. 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 The remainder showed normal chromosome complement. With those findings and with recurrent iron deficiency despite repeated infusions of parenteral iron, he was referred to [facility] for a second opinion evaluation. He was seen there in November 2018, and he subsequently began a trial of therapy with tranexamic acid. 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 Despite that, he required blood transfusions again on 01/18/2019, on 01/22/2019, on 02/05/2019, on 02/12/2019, and on 02/19/2019. 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 With that finding, we were able to get approval for a trial of therapy with a Avastin. He received his initial infusion of a Avastin at the 5 mg/kg dosage on 02/19/2019. He tolerated it well. As of 03/01/2019 his hemoglobin was adequate at 10.8 g. He then continued the Avastin at 2-week intervals. During that time he experienced a gradual increase in his hemoglobin/hematocrit levels. As of 08/22/2019 he received his 10th infusion of a Avastin. His hemoglobin was stable at 13.2 g, and we opted to try stopping his treatment. As of his follow-up visit on 11/22/2019 his hemoglobin had decreased to 9.6 g. His transferrin saturation was low at 13.6%, consistent with recurrent iron deficiency. He was then given parenteral iron replacement with 2 infusions of Injectafer. As of 12/05/2019, hemoglobin remained stable at 9.5 g, and at that point he restarted Avastin at 5 mg/kg by IV infusion every 2 weeks. As of 01/02/2020 his hemoglobin had increased to 11.3 g. His transferrin saturation, though, was low again at 4.7%, and he was given further parenteral iron replacement with 2 additional infusions of Injectafer. He continued treatment with Avastin every 2 weeks with his hemoglobin stabilizing in the range of 11 to 12 g. As of March 2020 the interval of his Avastin infusions was increased to 4 weeks. I had seen him for a follow-up visit on 01/13/2021. At that point, he had made plans to move to [place]. He received his last infusion of Avastin on 02/10/2021. I had made arrangements for him to continue treatment with the shaker repairer in [place]. He was then seen back here on 04/30/2021, as his plans in [place] had not worked out as expected. His CBC 2 days earlier had shown a drop in his hemoglobin to 9.4 g. His subsequent serum iron studies showed transferrin saturation low at 10.4%, consistent with iron deficiency. He restarted bevacizumab 5 mg/kg by IV infusion every 2 weeks for 3 treatments. He also was given 2 infusions of Injectafer for the iron deficiency. As of 06/30/2021 his hemoglobin was back up to 12.7 g. He continued treatment with Avastin 5 mg/kg by IV infusion every 4 weeks. His medical history is otherwise unremarkable. He reports no other medical illnesses. His most recent colonoscopy was in 2007. He is a nonsmoker. INTERIM HISTORY: He has been seen here for a scheduled infusion of Avastin on 10/07/2021. At that point his hemoglobin was stable at 12.4 g. He had then made plans to travel again. We were unsuccessful with attempts to make arrangements for his Avastin infusions, and thus far he has received no further treatment. He returns now for a follow-up visit. He has been feeling very tired, and he is short of breath with any activity. He is still able to do some light work. ECOG score is 1. He has good appetite. He has no fever or night sweats. He has not had sore mouth or throat, but he has been having frequent nosebleeds. He does not complain of cough. He occasionally has chest pain. He has heartburn occasionally. His stools have been black. He has no complaints. He has been having some pain in the right hip area. He does not complain of headache, and he has no focal neurologic symptoms. Medications: Benadryl Allergy 1 Tablet (of 25 mg) Oral at bedtime PRN, C 1000 1 Tablet (of 1000 mg) Oral daily, Cholecalciferol 1 Capsule (of 10 mcg ) Oral daily, Ferrous Sulfate 2 (325 (65 fe) mg) Tablet Oral daily Allergies: No Known Allergies. Vital Signs: Performed on Jan 26, 2022 13:45 Height - 70.00 in Weight - 174.4 lbs (HIGH) BSA - 1.97 sq.m BMI - 25.02 Temperature - 98.7 F Pulse - 90 /min Respiration - 19 /min BP - 142/62 mm(hg) (HIGH) O2 Sat - 99 % Pain - 0 Fatigue - 0 Physical Examination: Constitutional - He appears somewhat weak generally, Eyes - Sclerae nonicteric. Conjunctivae clear, ENMT - No lesions noted in the oral cavity, Hematologic/Lymphatic - No cervical, clavicular, or axillary adenopathy, Respiratory - Lungs sound clear with diminished air movement bilaterally, Cardiovascular - Heart rhythm is regular. There is a II/ systolic murmur. There is no gallop or rub noted, Abdomen - Soft. Liver and spleen are not enlarged. There is no abdominal mass or ascites noted and there is no inguinal adenopathy, Extremities - No edema, Integumentary - There are multiple telangiectasia in the facial area, Neurologic - No focal neurologic deficits noted. Lab/Imaging: Test performed on Jan 26, 2022 11:32 Ferritin 52 ng/mL Iron 46 mcg/dL Sodium 138 mmol/L Iron Binding Capacity (TIBC) 274 mcg/dl Potassium 3.9 mmol/L % Iron Saturation 16.7 % Chloride 108 mmol/L CO2 20 mmol/L UIBC 228 mcg/dL Anion Gap 13.9 BUN 13 mg/dL Creatinine 0.9 mg/dL Cr Clearance (Est) 62.9700 mL/min Glucose 89 mg/dL Osmolality - Calculated 286 mOsm/kg Calcium 8.5 mg/dL Protein, Total 6.4 g/dL Albumin 3.4 g/dL Globulin 3.0 g/dL Bilirubin, Total 1.2 mg/dL ALT (SGPT) 12 U/L AST (SGOT) 47 U/L Alkaline Phosphatase 92 IU/L WBC 4.0 10 3/uL RBC 1.99 10 6/uL HGB 6.1 g/dL HCT 22.1 % MCV 111.1 fl MCH 30.7 pg MCHC 27.6 g/dL RDW 18.8 % Platelet Count 163 10 3/cmm MPV 10.5 fL Neutrophils 2.68 10 3/uL Lymphocytes 0.6 10 3/uL Monocytes 0.5 10 3/uL Eosinophils 0.2 10 3/uL Basophils 0.0 10 3/uL Neutrophil % 66.9 % Lymphocyte % 16.0 % Monocyte % 11.8 % Eosinophil % 4.3 % Basophils % 0.5 % NRBC % 0 % Test performed on Jan 26, 2022 11:30 Ua Color Dark Yellow Ua Appearance Clear Ua Glucose Norm Ua Bilirubin 1+ Ua Ketones Negative Ua Specific [place] 1.020 Ua Blood Neg Ua pH 5 Ua Protein Trace Ua Urobilinogen 8 mg/dL Ua Nitrites Negative Ua Leukocyte Esterase Negative Ua Micro: WBC RARE /hpf Ua Micro: RBC NONE /hpf Ua Micro: Squam Epith Cells 5-10 /hpf Ua Micro: Bacteria TRACE /hpf Ua Micro: Mucous 1+ /hpf Problem List: 1. 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 2. He has had iron deficiency anemia associated with chronic blood loss, which has included epistaxis and GI blood loss. Problems Addressed with this Encounter and Plan: 1. Patient with hereditary hemorrhagic telangiectasia. He has had iron deficiency anemia associated with chronic blood loss, which has included epistaxis and GI blood loss. He has been followed here since December 2016. During subsequent follow-up he required parenteral iron replacement on multiple occasions, and he received multiple transfusions of PRBC. He underwent EGD for acute GI bleeding on 02/15/2018. He was noted to have multiple AVMs in the gastric body. There were associated stigmata of bleeding, and he was treated with clipping and/or cautery. In November 2018 he was seen at [facility] for a second opinion evaluation. He began a trial therapy with tranexamic acid, but with no apparent benefit. 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 Despite that, he continued to require transfusion on a pretty much weekly basis. In January 2019 he began a trial of therapy with Avastin 5 mg/kg by IV infusion, initially administered at 2-week intervals. He had a very good clinical response with complete transfusion independence. As of 08/22/2019 he had completed his 10th infusion of Avastin. His hemoglobin was stable at 13.2 g, and at that point we opted to try stopping his treatment. As of 11/22/2019 his hemoglobin had dropped back down to 9.6 g with transferrin saturation low at 13.6%, consistent with iron deficiency. He was given parenteral iron replacement with 2 infusions of Injectafer, to which he did not show a significant response. As of 12/05/2019 he restarted treatment with Avastin 5 mg/kg by IV every 2 weeks. In December 2019 he did receive additional parenteral iron replacement with Injectafer, and he continued the Avastin infusions every 2 weeks. His hemoglobin then stabilized in the range of 11 to 12 g. As of March 2020 the interval of his Avastin infusions was increased to 4 weeks. During subsequent follow-up his hemoglobin/hematocrit levels had remained stable, and he has been stable clinically. Following his Avastin infusion on 02/10/2021, he had moved to [place]. That move, however, did not work out for him. As such, he had not been able to continue his treatment, and on his return here he had become mildly anemic again. He restarted Avastin at 5 mg/kg by IV infusion, administered every 2 weeks for 3 infusions. He appeared to have a good response, and he then continued the Avastin at 5 mg/kg by IV infusion every 4 weeks. He was seen here for an infusion of Avastin on 10/07/2021. At that point his hemoglobin was stable at 12.4 g. He had subsequently traveled to [place], and during that time he has not had any further treatment. He has now significantly anemic again with hemoglobin down to 6.1 g. His transferrin saturation is low at 16% with ferritin 52 ng/mL, consistent with iron deficiency. With his hemoglobin down this low, he will be transfused 1 unit of PRBCs today and another unit tomorrow. He will restart Avastin with a loading dose of 10 mg/kg by IV infusion every 2 weeks for 3 infusions. If he has stabilized he can then go back to 5 mg/kg by IV infusion every 4 weeks. In the meantime, he also will be given a prescription for furosemide to take 40 mg daily as needed for the lower extremity edema. 2. He has associated iron deficiency anemia. His transferrin saturation is now low again, consistent with recurrence of iron deficiency, and he will also be given parenteral iron replacement with Injectafer. Signed By: Jalil Olmos M.D. <<Signature on File>>
== END 2022-01-26 11:10 | disposition home or self-care (01) ==
PROVIDERS: PCP Emergency Medicine Emergency Medical Services; Visit Provider Internal Medicine Medical Oncology
DX: I78.0 Hereditary hemorrhagic telangiectasia (principal); D50.9 Iron deficiency anemia, unspecified; Z79.899 Other long term (current) drug therapy
CPT/HCPCS: 36430; 80053; 81001; 82728; 83540; 83550; 85025; 86850; 86900; 86920; 96375; 96413; 99215; J7050; J9035; P9016

== ENCOUNTER 2022-01-27 08:25 | Outpatient (CLI) | payer OTHER, SELFPAY ==
[2022-01-27] MEDS: acetaminophen 325 mg Tablet 650 MG PO (09:20)
[2022-01-27] MEDS: diphenhydrAMINE 25 mg Capsule PO (09:20)
[2022-01-27 09:25] VITALS: BP 125/58; PULSE 75; RESP 18; TEMP 36.7; O2SAT 98
[2022-01-27 09:40] VITALS: BP 134/65; PULSE 71; RESP 18; TEMP 36.7; O2SAT 98
[2022-01-27 09:55] VITALS: BP 156/77; PULSE 64; RESP 17; TEMP 36.7; O2SAT 98
[2022-01-27 10:25] VITALS: BP 148/71; PULSE 60; RESP 17; TEMP 36.7; O2SAT 98
[2022-01-27 11:00] VITALS: BP 150/64; PULSE 58; RESP 18; TEMP 36.7; O2SAT 98
[2022-01-27] MEDS: ferric carboxy (IVPB) 750 MG in sodium chloride 0.9% (100 ml) 100 ML 460 MG IV (11:05)
== END 2022-01-27 08:26 | disposition home or self-care (01) ==
PROVIDERS: PCP Emergency Medicine Emergency Medical Services; Visit Provider Nurse Practitioner
DX: I78.0 Hereditary hemorrhagic telangiectasia (principal); D50.9 Iron deficiency anemia, unspecified; Z79.899 Other long term (current) drug therapy
CPT/HCPCS: 36430; 86850; 86900; 86920; 96365; J1439; P9016

== ENCOUNTER 2022-02-03 12:53 | Outpatient (CLI) | payer OTHER, SELFPAY ==
[2022-02-03] MEDS: sodium chloride 0.9% (100 ml) 100 ML 75 ML (13:40)
[2022-02-03] MEDS: ferric carboxy (IVPB) 750 MG in sodium chloride 0.9% (100 ml) 100 ML 460 MG IV (13:40)
[2022-02-03 13:50] LABS: Basophils % 1.3 %; Eosinophils # 0.2 10^3/uL (0.0-0.8); Eosinophils % 7.3 %; Hematocrit 28.1 % (42.0-52.0); Hemoglobin 8.3 g/dL (11.7-16.6); Lymphocytes # 0.5 10^3/uL (0.8-4.8); Lymphocytes % 16.6 %; Mean Corpuscular HGB Conc 29.5 g/dL (30.0-36.0); Mean Corpuscular Hemoglobin 32.8 pg (28.0-34.0); Mean Corpuscular Volume 111.1 fl (80-94); Mean Platelet Volume 10.3 fL (7.4-10.4); Monocytes # 0.3 10^3/uL (0.2-0.9); Monocytes % 10.2 %; Neutrophils # 2.02 10^3/uL (1.8-7.7); Neutrophils % 64.3 %; Nucleated Red Blood Cells % 0 %; Platelet Count 156 10^3/cmm (130-400); Red Blood Count 2.53 10^6/uL (4.1-5.3); Red Cell Distribution Width 18.2 % (12.1-15.1); White Blood Count 3.1 10^3/uL (4.0-10.0)
== END 2022-02-03 12:54 | disposition home or self-care (01) ==
LOC: ONCMED 12:54
PROVIDERS: Internal Medicine Medical Oncology; PCP Emergency Medicine Emergency Medical Services; Visit Provider Nurse Practitioner
DX: I78.0 Hereditary hemorrhagic telangiectasia (principal); D50.9 Iron deficiency anemia, unspecified; Z79.899 Other long term (current) drug therapy
CPT/HCPCS: 85025; 96365; J1439

== ENCOUNTER 2022-02-16 10:37 | Outpatient (CLI) | payer OTHER, SELFPAY ==
[2022-02-16 11:42] LABS: Basophils # 0.1 10^3/uL (0.0-0.1); Basophils % 1.8 %; Eosinophils # 0.3 10^3/uL (0.0-0.8); Eosinophils % 8.2 %; Hematocrit 37.6 % (42.0-52.0); Hemoglobin 11.5 g/dL (11.7-16.6); Lymphocytes # 0.6 10^3/uL (0.8-4.8); Lymphocytes % 15.6 %; Mean Corpuscular HGB Conc 30.6 g/dL (30.0-36.0); Mean Corpuscular Volume 107.7 fl (80-94); Mean Platelet Volume 10.3 fL (7.4-10.4); Monocytes # 0.4 10^3/uL (0.2-0.9); Monocytes % 10.3 %; Neutrophils # 2.49 10^3/uL (1.8-7.7); Neutrophils % 63.8 %; Nucleated Red Blood Cells % 0 %; Platelet Count 145 10^3/cmm (130-400); Red Blood Count 3.49 10^6/uL (4.1-5.3); Red Cell Distribution Width 15.4 % (12.1-15.1); White Blood Count 3.9 10^3/uL (4.0-10.0)
== END 2022-02-16 10:38 | disposition home or self-care (01) ==
LOC: ONCMED 10:40
PROVIDERS: PCP Emergency Medicine Emergency Medical Services; Visit Provider Internal Medicine Medical Oncology
DX: I78.0 Hereditary hemorrhagic telangiectasia (principal); E61.1 Iron deficiency
CPT/HCPCS: 36415; 85025

== ENCOUNTER 2022-02-18 08:50 | Outpatient (CLI) | payer OTHER, SELFPAY ==
[2022-02-18] MEDS: sodium chloride 0.9% 250 ML 75 ML IV (10:20)
== END 2022-02-18 08:51 | disposition home or self-care (01) ==
PROVIDERS: PCP Emergency Medicine Emergency Medical Services; Visit Provider Nurse Practitioner
DX: Z51.11 Encounter for antineoplastic chemotherapy (principal); I78.0 Hereditary hemorrhagic telangiectasia; K92.2 Gastrointestinal hemorrhage, unspecified; D50.0 Iron deficiency anemia secondary to blood loss (chronic); Z79.899 Other long term (current) drug therapy
CPT/HCPCS: 96413; J7050; J9035

== ENCOUNTER 2022-03-09 08:08 | Oncology outpatient (recurring) (ONCR) | payer OTHER, SELFPAY ==
[2022-03-09 08:36] VITALS: BMI 23.8
[2022-03-09 08:41] LABS: Basophils # 0.1 10^3/uL (0.0-0.1); Basophils % 0.9 %; Eosinophils # 0.5 10^3/uL (0.0-0.8); Eosinophils % 7.9 %; Hemoglobin 11.6 g/dL (11.7-16.6); Lymphocytes # 0.9 10^3/uL (0.8-4.8); Lymphocytes % 15.7 %; Mean Corpuscular HGB Conc 32.2 g/dL (30.0-36.0); Mean Corpuscular Hemoglobin 33.1 pg (28.0-34.0); Mean Corpuscular Volume 102.9 fl (80-94); Mean Platelet Volume 10.2 fL (7.4-10.4); Monocytes # 0.6 10^3/uL (0.2-0.9); Monocytes % 11.1 %; Neutrophils # 3.64 10^3/uL (1.8-7.7); Neutrophils % 64.2 %; Nucleated Red Blood Cells % 0 %; Platelet Count 158 10^3/cmm (130-400); Red Cell Distribution Width 14.4 % (12.1-15.1); White Blood Count 5.7 10^3/uL (4.0-10.0)
[2022-03-09 09:02] LABS: Alanine Aminotransferase 12 U/L (0-41); Albumin Level 3.7 g/dL (3.5-5.2); Alkaline Phosphatase 90 IU/L (40-130); Aspartate Amino Transferase 49 U/L (0-40); Blood Urea Nitrogen 11 mg/dL (8-23); Calcium 8.9 mg/dL (8.5-10.5); Carbon Dioxide 23 mmol/L (22-29); Chloride 109 mmol/L (98-107); Creatinine Clr Calc Pharmacy 69.2985; Ferritin 188 ng/mL (30-400); Globulin 3.8 g/dL (1.3-4.6); Glucose 81 mg/dL (65-115); Iron 43 ug/dL (59-158); Osmolality Calculated 286 mOsm/kg (285-295); Percent Saturation 20.1 % (20-50); Sodium 139 mmol/L (136-145); Total Bilirubin 0.3 mg/dL (0.15-1.2); Total Iron Binding Capacity 213 mcg/dl; Total Protein 7.5 g/dL (6.6-8.7); Unsaturated Iron Binding 170 ug/dL (112-347)
[2022-03-09] MEDS: sodium chloride 0.9% 250 ML 75 ML IV (11:10)
== END 2022-03-23 23:59 | disposition home or self-care (01) ==
PROVIDERS: PCP Emergency Medicine Emergency Medical Services; Visit Provider Internal Medicine Medical Oncology
DX: Z51.11 Encounter for antineoplastic chemotherapy (principal); I78.0 Hereditary hemorrhagic telangiectasia; K92.2 Gastrointestinal hemorrhage, unspecified; D50.0 Iron deficiency anemia secondary to blood loss (chronic); Z79.899 Other long term (current) drug therapy
CPT/HCPCS: 80053; 82728; 83540; 83550; 85025; 96413; 99215; 99999; J7050; J9035

== ENCOUNTER 2022-04-08 11:41 | Oncology outpatient (recurring) (ONCR) | payer OTHER, SELFPAY ==
[2022-04-08 09:44] LABS: Basophils # 0.1 10^3/uL (0.0-0.1); Basophils % 1.2 %; Eosinophils # 0.4 10^3/uL (0.0-0.8); Eosinophils % 7.9 %; Hematocrit 33.7 % (42.0-52.0); Hemoglobin 11.6 g/dL (11.7-16.6); Lymphocytes # 0.8 10^3/uL (0.8-4.8); Lymphocytes % 16.4 %; Mean Corpuscular HGB Conc 34.4 g/dL (30.0-36.0); Mean Corpuscular Hemoglobin 32.6 pg (28.0-34.0); Mean Corpuscular Volume 94.7 fl (80-94); Mean Platelet Volume 10.4 fL (7.4-10.4); Monocytes # 0.5 10^3/uL (0.2-0.9); Monocytes % 10.7 %; Neutrophils # 3.14 10^3/uL (1.8-7.7); Neutrophils % 63.6 %; Nucleated Red Blood Cells % 0 %; Platelet Count 158 10^3/cmm (130-400); Red Blood Count 3.56 10^6/uL (4.1-5.3); Red Cell Distribution Width 13.9 % (12.1-15.1); White Blood Count 4.9 10^3/uL (4.0-10.0)
[2022-04-08 09:45] VITALS: BP 160/71; PULSE 64; RESP 18; TEMP 36.5; O2SAT 96
[2022-04-08 09:47] LABS: Add Urine Microscopic? NO; Charge for UA Resulting for Rev
[2022-04-08 10:23] LABS: Bilirubin Urine Neg (Negative); Blood Urine Neg (Negative); Glucose Urine UA Norm (Normal); Ketones Urine Negative (Negative); Leukocyte Esterase Urine Negative (Negative); Nitrate Urine Negative (Negative); Protein Urine Neg (Negative); Urine Appearance Clear (CLEAR); Urine Color Yellow (Yellow); Urobilinogen Urine 1 mg/dL (Negative); pH Urine 5 (5-7)
[2022-04-08 10:36] LABS: Ferritin 111 ng/mL (30-400); Iron 55 ug/dL (59-158); Total Iron Binding Capacity 220 mcg/dl; Unsaturated Iron Binding 165 ug/dL (112-347)
[2022-04-08] MEDS: sodium chloride 0.9% 250 ML 75 ML IV (10:59)
== END 2022-04-22 23:59 | disposition home or self-care (01) ==
PROVIDERS: PCP Emergency Medicine Emergency Medical Services; Visit Provider Internal Medicine Medical Oncology
DX: I78.0 Hereditary hemorrhagic telangiectasia (principal); D50.0 Iron deficiency anemia secondary to blood loss (chronic)
CPT/HCPCS: 81003; 82728; 83540; 83550; 85025; 96413; J7050; J9035

== ENCOUNTER 2022-05-04 08:11 | Oncology outpatient (recurring) (ONCR) | payer OTHER, SELFPAY ==
[2022-05-04 08:38] VITALS: BMI 23.8
[2022-05-04 08:49] LABS: Add Urine Microscopic? NO; Charge for UA Resulting for Rev
[2022-05-04 08:54] LABS: Basophils # 0.1 10^3/uL (0.0-0.1); Basophils % 1.4 %; Eosinophils # 0.9 10^3/uL (0.0-0.8); Eosinophils % 15.1 %; Hematocrit 37.4 % (42.0-52.0); Hemoglobin 12.7 g/dL (11.7-16.6); Lymphocytes # 1.2 10^3/uL (0.8-4.8); Lymphocytes % 19.9 %; Mean Corpuscular Hemoglobin 32.5 pg (28.0-34.0); Mean Corpuscular Volume 95.7 fl (80-94); Mean Platelet Volume 10.2 fL (7.4-10.4); Monocytes # 0.7 10^3/uL (0.2-0.9); Monocytes % 11.6 %; Neutrophils # 3.21 10^3/uL (1.8-7.7); Neutrophils % 51.7 %; Nucleated Red Blood Cells % 0 %; Platelet Count 157 10^3/cmm (130-400); Red Blood Count 3.91 10^6/uL (4.1-5.3); Red Cell Distribution Width 14.6 % (12.1-15.1); White Blood Count 6.2 10^3/uL (4.0-10.0)
[2022-05-04 08:54] LABS: Bilirubin Urine Neg (Negative); Blood Urine Neg (Negative); Glucose Urine UA Norm (Normal); Ketones Urine Negative (Negative); Leukocyte Esterase Urine Negative (Negative); Nitrate Urine Negative (Negative); Protein Urine Neg (Negative); Specific Gravity, Urine 1.015 (1.005-1.030); Urine Appearance Clear (CLEAR); Urine Color Yellow (Yellow); Urobilinogen Urine 1 mg/dL (Negative); pH Urine 6 (5-7)
[2022-05-04 09:12] LABS: Ferritin 140 ng/mL (30-400); Iron 73 ug/dL (59-158); Percent Saturation 29.5 % (20-50); Total Iron Binding Capacity 247 mcg/dl; Unsaturated Iron Binding 174 ug/dL (112-347)
[2022-05-04] MEDS: sodium chloride 0.9% 250 ML 75 ML IV (09:50)
[2022-05-04 11:05] VITALS: BP 165/79; PULSE 63; RESP 18; TEMP 36.2; O2SAT 99
== END 2022-05-23 23:59 | disposition home or self-care (01) ==
PROVIDERS: PCP Emergency Medicine Emergency Medical Services; Visit Provider Internal Medicine Medical Oncology
DX: I78.0 Hereditary hemorrhagic telangiectasia (principal); D50.0 Iron deficiency anemia secondary to blood loss (chronic)
CPT/HCPCS: 81003; 82728; 83540; 83550; 85025; 96413; J7050; J9035

== ENCOUNTER 2022-06-01 08:03 | Oncology outpatient (recurring) (ONCR) | payer OTHER, SELFPAY ==
[2022-06-01 08:18] VITALS: BMI 23.5
[2022-06-01 09:19] LABS: Basophils # 0.1 10^3/uL (0.0-0.1); Basophils % 1.2 %; Eosinophils # 0.6 10^3/uL (0.0-0.8); Eosinophils % 10.4 %; Hematocrit 38.3 % (42.0-52.0); Hemoglobin 12.8 g/dL (11.7-16.6); Lymphocytes # 1.1 10^3/uL (0.8-4.8); Lymphocytes % 17.3 %; Mean Corpuscular HGB Conc 33.4 g/dL (30.0-36.0); Mean Corpuscular Hemoglobin 33.2 pg (28.0-34.0); Mean Corpuscular Volume 99.2 fl (80-94); Mean Platelet Volume 10.6 fL (7.4-10.4); Monocytes # 0.7 10^3/uL (0.2-0.9); Neutrophils # 3.64 10^3/uL (1.8-7.7); Neutrophils % 59.8 %; Nucleated Red Blood Cells % 0 %; Platelet Count 152 10^3/cmm (130-400); Red Blood Count 3.86 10^6/uL (4.1-5.3); Red Cell Distribution Width 14.2 % (12.1-15.1); White Blood Count 6.1 10^3/uL (4.0-10.0)
[2022-06-01 09:46] LABS: Alanine Aminotransferase 14 U/L (0-41); Albumin Level 3.9 g/dL (3.5-5.2); Alkaline Phosphatase 87 IU/L (40-130); Blood Urea Nitrogen 15 mg/dL (8-23); Calcium 9.4 mg/dL (8.5-10.5); Carbon Dioxide 24 mmol/L (22-29); Chloride 104 mmol/L (98-107); Ferritin 159 ng/mL (30-400); Globulin 3.6 g/dL (1.3-4.6); Glucose 77 mg/dL (65-115); Iron 48 ug/dL (59-158); Osmolality Calculated 286 mOsm/kg (285-295); Sodium 138 mmol/L (136-145); Total Bilirubin 0.5 mg/dL (0.15-1.2); Total Protein 7.5 g/dL (6.6-8.7)
[2022-06-01 09:54] LABS: Anion Gap 14.6 (5-19); Potassium 4.6 mmol/L (3.5-5.1)
[2022-06-01 09:55] LABS: Aspartate Amino Transferase 49 U/L (0-40); Total Iron Binding Capacity 266 mcg/dl; Unsaturated Iron Binding 218 ug/dL (112-347)
[2022-06-01] MEDS: sodium chloride 0.9% 250 ML 100 ML IV (10:18)
[2022-06-01 11:22] VITALS: BP 161/79; PULSE 72; RESP 16; TEMP 36.3; O2SAT 99
== END 2022-06-23 23:59 | disposition home or self-care (01) ==
PROVIDERS: PCP Emergency Medicine Emergency Medical Services; Visit Provider Internal Medicine Medical Oncology
DX: Z51.11 Encounter for antineoplastic chemotherapy (principal); I78.0 Hereditary hemorrhagic telangiectasia; D50.0 Iron deficiency anemia secondary to blood loss (chronic)
CPT/HCPCS: 80053; 82728; 83540; 83550; 85025; 96413; 99214; 99215; J7050; J9035

== ENCOUNTER 2022-07-20 10:30 | Oncology outpatient (recurring) (ONCR) | payer OTHER, SELFPAY ==
[2022-06-29 11:52] LABS: Basophils # 0.1 10^3/uL (0.0-0.1); Basophils % 1.1 %; Eosinophils # 0.4 10^3/uL (0.0-0.8); Eosinophils % 8.1 %; Hemoglobin 12.2 g/dL (11.7-16.6); Lymphocytes # 0.8 10^3/uL (0.8-4.8); Mean Corpuscular HGB Conc 33.9 g/dL (30.0-36.0); Mean Corpuscular Hemoglobin 33.5 pg (28.0-34.0); Mean Corpuscular Volume 98.9 fl (80-94); Mean Platelet Volume 9.8 fL (7.4-10.4); Monocytes # 0.4 10^3/uL (0.2-0.9); Monocytes % 8.8 %; Neutrophils # 2.98 10^3/uL (1.8-7.7); Neutrophils % 63.8 %; Nucleated Red Blood Cells % 0 %; Platelet Count 149 10^3/cmm (130-400); Red Blood Count 3.64 10^6/uL (4.1-5.3); Red Cell Distribution Width 14.1 % (12.1-15.1); White Blood Count 4.7 10^3/uL (4.0-10.0)
[2022-06-29 12:00] VITALS: BP 164/63; PULSE 60; RESP 18; TEMP 36.6; O2SAT 98
[2022-06-29] MEDS: sodium chloride 0.9% 250 ML 75 ML IV (12:50)
[2022-06-29 13:15] LABS: Alanine Aminotransferase 13 U/L (0-41); Albumin Level 3.6 g/dL (3.5-5.2); Alkaline Phosphatase 83 U/L (40-130); Blood Urea Nitrogen 10 mg/dL (8-23); Calcium 8.9 mg/dL (8.5-10.5); Carbon Dioxide 21 mmol/L (22-29); Chloride 105 mmol/L (98-107); Ferritin 118 ng/mL (30-400); Globulin 3.4 g/dL (1.3-4.6); Glucose 129 mg/dL (65-115); Iron 100 ug/dL (59-158); Osmolality Calculated 281 mOsm/kg (285-295); Sodium 135 mmol/L (136-145); Total Bilirubin 0.4 mg/dL (0.15-1.2)
[2022-06-29 13:25] LABS: Anion Gap 13.3 (5-19); Potassium 4.3 mmol/L (3.5-5.1)
[2022-06-29 13:26] LABS: Aspartate Amino Transferase 42 U/L (0-40)
[2022-06-29 13:35] LABS: Percent Saturation 39.3 % (20-50); Total Iron Binding Capacity 254 mcg/dl; Unsaturated Iron Binding 154 ug/dL (112-347)
[2022-07-20 10:48] VITALS: BP 171/65; PULSE 66; RESP 16; TEMP 36.4; O2SAT 98
[2022-07-20] MEDS: sodium chloride 0.9% (100 ml) 100 ML 75 ML (11:17)
[2022-07-20 11:51] VITALS: BP 158/75; PULSE 65; RESP 16; TEMP 35.7; O2SAT 99
== END 2022-07-23 23:59 | disposition home or self-care (01) ==
PROVIDERS: PCP Emergency Medicine Emergency Medical Services; Visit Provider Internal Medicine Medical Oncology
DX: D50.0 Iron deficiency anemia secondary to blood loss (chronic) (principal)
CPT/HCPCS: 36415; 80053; 82728; 83540; 83550; 85025; 96413; J7050; J9035